=== PATIENT | female | born 1995 | race American Indian/Alaskan Native ===

== ENCOUNTER 2019-05-20 10:00 | Inpatient (IN) | payer MEDICARE ==
--- NOTE | 2019-05-20 10:39 | Emergency Department Report ---
ED Female HPI - General Chief complaint: Abdominal Pain Stated complaint: PELVIC PAIN Time Seen by Provider: 05/20/19 10:24 Source: patient Mode of arrival: Ambulatory Limitations: No Limitations - History of Present Illness Initial comments: This is a 24-year-old female presents to ED complaining of lower suprapubic pain and increased pain or urination for the past 3 days. Patient states pain is constant but worsened with urination. She states she's experienced some nausea associated vomiting. Patient describes pain as localized to pelvic region and constant. She rates pain a 10 out of 10 in nature. She states last menstrual period as 05/15/2019. Patient states that she has not been sexually active for some time now so she has not had recent intercourse. She admits to having a fever last night. She denies vaginal bleeding, vaginal discharge, diarrhea, MD Complaint: dysuria, pelvic pain Location: suprapubic Radiation: R flank Severity: moderate Severity scale (0 -10): 5 Consistency: constant Worsens with: urination Are you Now?: No Last Menstrual Period: 05/15/19 EDC: 02/19/20 Associated Symptoms: nausea/vomiting. denies: vaginal discharge, vaginal bleeding, hematuria - Related Data Previous Rx's Medication Instructions Recorded Last Taken Type Nitrofurantoin [place]/M-Cryst 100 mg PO Q12HR #10 capsule 05/20/19 Unknown Rx [Macrobid CAP] Phenazopyridine [Pyridium] 100 mg PO TID #8 tab 05/20/19 Unknown Rx Allergies Allergy/AdvReac Type Severity Reaction Status Date / Time cefepime Allergy Hives Verified 05/20/19 10:21 shellfish derived Allergy Swelling Verified 05/20/19 10:21 vancomycin Allergy Hives Verified 05/20/19 10:21 ED Review of Systems ROS: Stated complaint: PELVIC PAIN Other details as noted in HPI Comment: All other systems reviewed and negative ED Past Medical Hx - Past Medical History Previous Medical History?: Yes Hx Pulmonary Embolism: Yes Hx Sickle Cell Disease: Yes - Surgical History Past Surgical History?: Yes Hx Cholecystectomy: Yes - Social History Smoking Status: Never Smoker Substance Use Type: None - Medications Home Medications: Home Medications Medication Instructions Recorded Confirmed Last Taken Type Nitrofurantoin [place]/M-Cryst 100 mg PO Q12HR #10 capsule 05/20/19 Unknown Rx [Macrobid CAP] Phenazopyridine [Pyridium] 100 mg PO TID #8 tab 05/20/19 Unknown Rx ED Physical Exam - General Limitations: No Limitations General appearance: alert, in no apparent distress - Head Head exam: Present: atraumatic, normocephalic - Eye Eye exam: Present: normal appearance - ENT ENT exam: Present: mucous membranes moist - Neck Neck exam: Present: normal inspection - Respiratory Respiratory exam: Present: normal lung sounds bilaterally. Absent: respiratory distress - Cardiovascular Cardiovascular Exam: Present: regular rate, normal rhythm. Absent: systolic murmur, diastolic murmur, rubs, gallop - GI/Abdominal GI/Abdominal exam: Present: soft, tenderness (pelvic region), normal bowel sounds. Absent: distended, guarding, mass - External exam: Present: normal external exam. Absent: erythema, swelling Speculum exam: Present: vaginal discharge (greenish), cervical discharge (brown greenish pus like discharge) Bi-manual exam: Present: cervical motion tendernes, adnexal tenderness, uterine tenderness - Extremities Exam Extremities exam: Present: normal inspection - Back Exam Back exam: Present: normal inspection - Neurological Exam Neurological exam: Present: alert, oriented X3 - Psychiatric Psychiatric exam: Present: normal affect, normal mood - Skin Skin exam: Present: warm, dry, intact, normal color. Absent: rash ED Course Vital Signs 05/20/19 05/20/19 05/20/19 10:18 10:37 15:17 Temperature 98.8 F 98.6 F Pulse Rate 113 H 108 H Respiratory 18 16 22 Rate Blood Pressure 103/65 Blood Pressure 96/48 [Right] O2 Sat by Pulse 100 97 Oximetry 05/20/19 16:35 Temperature Pulse Rate 91 H Respiratory 20 Rate Blood Pressure Blood Pressure 95/51 [Right] O2 Sat by Pulse 99 Oximetry - Reevaluation(s) Reevaluation #1: Patient was in a lot of pain, after pelvic examination, 1 L normal saline, Toradol 15 IV being administered Patient states she is still uncomfortable, 2 mg of morphine ordered X line sepsis protocol started initiated 1430PM 05/20/19 15:04 Reevaluation #2: Patient is resting comfortably in the ED bed. Pain is controlled at the moment after receiving morphine 2 mg Vital signs stable 05/20/19 16:33 05/20/19 16:33 - Consultations Consultation #1: Discussed case with Dr. Luis JORDAN WORKER who has a septated to admit the patient to mother baby unit 05/20/19 16:32 ED Medical Decision Making - Lab Data Result diagrams: 05/20/19 13:28 05/20/19 14:43 Laboratory Last Values WBC 22.1 K/mm3 (4.5-11.0) H 05/20/19 13:28 RBC 2.56 M/mm3 (3.65-5.03) L 05/20/19 13:28 Hgb 8.3 gm/dl (10.1-14.3) L 05/20/19 13:28 Hct 24.0 % (30.3-42.9) L 05/20/19 13:28 MCV 94 fl (79-97) 05/20/19 13:28 MCH 33 pg (28-32) H 05/20/19 13:28 MCHC 35 % (30-34) H 05/20/19 13:28 RDW 23.0 % (13.2-15.2) H 05/20/19 13:28 Plt Count 454 K/mm3 (140-440) H 05/20/19 13:28 Add Manual Diff Complete 05/20/19 13:28 Total Counted 100 05/20/19 13:28 Seg Neuts % (Manual) 92.0 % (40.0-70.0) H 05/20/19 13:28 0 % 05/20/19 13:28 6.0 % (13.4-35.0) L 05/20/19 13:28 Reactive Lymphs % (Man) 0 % 05/20/19 13:28 2.0 % (0.0-7.3) 05/20/19 13:28 0 % (0.0-4.3) 05/20/19 13:28 0 % (0.0-1.8) 05/20/19 13:28 0 % 05/20/19 13:28 0 % 05/20/19 13:28 0 % 05/20/19 13:28 0 % 05/20/19 13:28 Nucleated RBC % Not Reportable 05/20/19 13:28 Seg Neutrophils # Man 20.3 K/mm3 (1.8-7.7) H 05/20/19 13:28 Band Neutrophils # 0.0 K/mm3 05/20/19 13:28 1.3 K/mm3 (1.2-5.4) 05/20/19 13:28 Abs React Lymphs (Man) 0.0 K/mm3 05/20/19 13:28 0.4 K/mm3 (0.0-0.8) 05/20/19 13:28 0.0 K/mm3 (0.0-0.4) 05/20/19 13:28 0.0 K/mm3 (0.0-0.1) 05/20/19 13:28 0.0 K/mm3 05/20/19 13:28 0.0 K/mm3 05/20/19 13:28 0.0 K/mm3 05/20/19 13:28 Blast Cells # 0.0 K/mm3 05/20/19 13:28 WBC Morphology Not Reportable 05/20/19 13:28 Hypersegmented Neuts Not Reportable 05/20/19 13:28 Hyposegmented Neuts Not Reportable 05/20/19 13:28 Hypogranular Neuts Not Reportable 05/20/19 13:28 Not Reportable 05/20/19 13:28 Not Reportable 05/20/19 13:28 Not Reportable 05/20/19 13:28 Not Reportable 05/20/19 13:28 Not Reportable 05/20/19 13:28 Not Reportable 05/20/19 13:28 Consistent w auto 05/20/19 13:28 Not Reportable 05/20/19 13:28 Plt Clumps, EDTA Not Reportable 05/20/19 13:28 Few 05/20/19 13:28 Not Reportable 05/20/19 13:28 Not Reportable 05/20/19 13:28 Plt Morphology Comment Not Reportable 05/20/19 13:28 RBC Morphology Not Reportable 05/20/19 13:28 Dimorphic RBCs Not Reportable 05/20/19 13:28 Not Reportable 05/20/19 13:28 Not Reportable 05/20/19 13:28 Not Reportable 05/20/19 13:28 Not Reportable 05/20/19 13:28 Not Reportable 05/20/19 13:28 Not Reportable 05/20/19 13:28 Not Reportable 05/20/19 13:28 Not Reportable 05/20/19 13:28 2+ 05/20/19 13:28 2+ 05/20/19 13:28 Not Reportable 05/20/19 13:28 Not Reportable 05/20/19 13:28 Not Reportable 05/20/19 13:28 Not Reportable 05/20/19 13:28 Not Reportable 05/20/19 13:28 Not Reportable 05/20/19 13:28 Not Reportable 05/20/19 13:28 Not Reportable 05/20/19 13:28 Not Reportable 05/20/19 13:28 Acanthocytes (Spur) Not Reportable 05/20/19 13:28 Rouleaux Not Reportable 05/20/19 13:28 Not Reportable 05/20/19 13:28 Not Reportable 05/20/19 13:28 Not Reportable 05/20/19 13:28 Not Reportable 05/20/19 13:28 Hem Pathologist Commnt No 05/20/19 13:28 Sodium 140 mmol/L (137-145) 05/20/19 14:43 Sodium 141 mmol/L (137-145) 05/20/19 14:43 Potassium 3.1 mmol/L (3.6-5.0) L 05/20/19 14:43 Potassium 3.1 mmol/L (3.6-5.0) L 05/20/19 14:43 Chloride 104.4 mmol/L (98-107) 05/20/19 14:43 Chloride 104.9 mmol/L (98-107) 05/20/19 14:43 Carbon Dioxide 22 mmol/L (22-30) 05/20/19 14:43 Carbon Dioxide 23 mmol/L (22-30) 05/20/19 14:43 16 mmol/L 05/20/19 14:43 17 mmol/L 05/20/19 14:43 BUN 5 mg/dL (7-17) L 05/20/19 14:43 BUN 5 mg/dL (7-17) L 05/20/19 14:43 0.3 mg/dL (0.7-1.2) L 05/20/19 14:43 0.3 mg/dL (0.7-1.2) L 05/20/19 14:43 Estimated GFR > 60 ml/min 05/20/19 14:43 Estimated GFR > 60 ml/min 05/20/19 14:43 17 % 05/20/19 14:43 17 % 05/20/19 14:43 Glucose 90 mg/dL (65-100) 05/20/19 14:43 Glucose 90 mg/dL (65-100) 05/20/19 14:43 Lactic Acid 0.70 mmol/L (0.7-2.0) 05/20/19 14:43 Calcium 9.1 mg/dL (8.4-10.2) 05/20/19 14:43 Calcium 9.1 mg/dL (8.4-10.2) 05/20/19 14:43 2.90 mg/dL (0.1-1.2) H 05/20/19 14:43 AST 15 units/L (5-40) 05/20/19 14:43 ALT 7 units/L (7-56) 05/20/19 14:43 54 units/L (35-129) 05/20/19 14:43 8.0 g/dL (6.3-8.2) 05/20/19 14:43 4.4 g/dL (3.9-5) 05/20/19 14:43 1.2 % 05/20/19 14:43 Yellow (Yellow) 05/20/19 10:38 Clear (Clear) 05/20/19 10:38 5.0 (5.0-7.0) 05/20/19 10:38 Ur Specific Cool 1.012 (1.003-1.030) 05/20/19 10:38 <15 mg/dl mg/dL (Negative) 05/20/19 10:38 Neg mg/dL (Negative) 05/20/19 10:38 Neg mg/dL (Negative) 05/20/19 10:38 Neg (Negative) 05/20/19 10:38 Neg (Negative) 05/20/19 10:38 Neg (Negative) 05/20/19 10:38 < 2.0 mg/dL (<2.0) 05/20/19 10:38 Ur Leukocyte Esterase Tr (Negative) 05/20/19 10:38 1.0 /HPF (0.0-6.0) 05/20/19 10:38 < 1.0 /HPF (0.0-6.0) 05/20/19 10:38 U Epithel Cells (Auto) < 1.0 /HPF (0-13.0) 05/20/19 10:38 Few /HPF 05/20/19 10:38 Urine HCG, Qual Negative (Negative) 05/20/19 10:38 - Radiology Data Radiology results: report reviewed, image reviewed TECHNIQUE: Axial CT images were obtained through the abdomen and pelvis without IV contrast. All CT scans at this location are performed using CT dose reduction for ALARA by means of automated exposure control. COMPARISON: None available. FINDINGS: LOWER CHEST: No significant abnormality. LIVER: No significant abnormality. GALLBLADDER: Surgically absent. BILE DUCTS: No significant abnormality. PANCREAS: No significant abnormality. SPLEEN: Spleen is absent. ADRENALS: No significant abnormality. RIGHT KIDNEY and URETER: No significant abnormality. LEFT KIDNEY and URETER: No significant abnormality. STOMACH and SMALL BOWEL: No significant abnormality. COLON: No significant abnormality. APPENDIX: No significant abnormality. PERITONEUM: No free fluid. No free air. No fluid collection. LYMPH NODES: Shotty lymph nodes in the small bowel mesentery none of which appear pathologically enlarged. AORTA and ARTERIES: No significant abnormality. IVC and VEINS: No significant abnormality. URINARY BLADDER: No significant abnormality. REPRODUCTIVE ORGANS: Intrauterine device is present. No acute abnormality. ADDITIONAL FINDINGS: None. SKELETAL SYSTEM: No significant abnormality. IMPRESSION: 1. No inflammatory process or bowel obstruction. 2. No urinary tract stones or hydronephrosis. Signer Name: Kamala Amato MD Signed: 05/20/2019 4:21 PM Workstation Name: [id number] Transcribed By: DT Dictated By: Mark Amato MD Electronically Authenticated By: Mark Amato MD Signed Date/Time: 05/20/19 1621 - Medical Decision Making 24-year-old female presents with low pelvic pain/PID CBC, BMP, lactate acid ,Urinalysis and urine test ordered. CBC shows leukocytosis Due to patient having symptoms she'll be treated with Macrobid 5 days patient was given Patient has received 1 L fluids, morphine, Toradol for pain CT scan of the abdomen and pelvis pending Discussed findings with the patient. Case discussed with Dr. Dumont JORDAN WORKER was assisted to admit patient to the mother-baby unit. Admission orders placed patient will be titrated to mother-baby Critical care attestation.: If time is entered above; I have spent that time in minutes in the direct care of this critically ill patient, excluding procedure time. ED Disposition Clinical Impression: PID (acute pelvic inflammatory disease) Disposition: OP ADMIT IP TO THIS HOSP Is pt being admited?: Yes Does the pt Need Aspirin: No Condition: Stable
[2019-05-20 11:03] LABS: Bilirubin,Urine NEG (Negative); Blood,Urine NEG (Negative); Color,Urine Yellow (Yellow); Mucus,Urine FEW /HPF; Protein,Urine <15 mg/dL mg/dL (Negative); RBC,Urine < 1.0 /HPF (0.0-6.0); Urobilinogen,Urine < 2.0 mg/dL (<2.0)
[2019-05-20 11:10] LABS: HCG Qualitative,Urine Negative (Negative)
[2019-05-20] MEDS ORDERED: NACL 0.9% 1000 ML 1,000 ML IV ONE (13:12)
[2019-05-20] MEDS ORDERED: TORADOL IV ONE (13:12)
[2019-05-20 14:01] LABS: Blood Urea Nitrogen TNR mg/dL (7-17)
[2019-05-20 14:02] LABS: BUN/Creatinine Ratio TNR; Calcium TNR mg/dL (8.4-10.2); Hemolysis Index TNR
[2019-05-20 14:19] LABS: Hemoglobin 8.3 gm/dl (10.1-14.3); Mean Corpuscular HGB Conc 35 % (30-34); Mean Corpuscular Volume 94 fl (79-97); Platelet Count 454 K/mm3 (140-440); Red Blood Count 2.56 M/mm3 (3.65-5.03)
[2019-05-20] MEDS ORDERED: NACL 0.9% 1000 ML IV ONE (14:38)
[2019-05-20] MEDS ORDERED: CLEOCIN 600 MG/50 mL 600 MG/50 ML BAG IV ONE (14:39)
[2019-05-20] MEDS ORDERED: MORPHINE IV ONE ×2 (15:08→16:25)
[2019-05-20 15:18] LABS: Basophils % (Manual) 0 % (0.0-1.8); Eosinophils % (Manual) 0 % (0.0-4.3); Total Cells Counted 100
[2019-05-20 15:19] LABS: BUN/Creatinine Ratio 17; Blood Urea Nitrogen 5 mg/dL (7-17); Calcium 9.1 mg/dL (8.4-10.2); Hemolysis Index 4
[2019-05-20 15:20] LABS: Large Platelets Few; Platelet Estimate Consistent w Auto; Sickle Cells 2+; Target Cells 2+
[2019-05-20 15:21] LABS: Alanine Aminotransferase 7 units/L (7-56); Albumin 4.4 g/dL (3.9-5); BUN/Creatinine Ratio 17; Blood Urea Nitrogen 5 mg/dL (7-17); Calcium 9.1 mg/dL (8.4-10.2); Hemolysis Index 1
--- NOTE | 2019-05-20 16:25 | Cat Scan Report ---
CT ABDOMEN AND PELVIS WITHOUT CONTRAST INDICATION / CLINICAL INFORMATION: low abd pain. TECHNIQUE: Axial CT images were obtained through the abdomen and pelvis without IV contrast. All CT scans at [facility] location are performed using CT dose reduction for ALARA by means of automated exposure control. COMPARISON: None available. FINDINGS: LOWER CHEST: No significant abnormality. LIVER: No significant abnormality. GALLBLADDER: Surgically absent. BILE DUCTS: No significant abnormality. PANCREAS: No significant abnormality. SPLEEN: Spleen is absent. ADRENALS: No significant abnormality. RIGHT KIDNEY and URETER: No significant abnormality. LEFT KIDNEY and URETER: No significant abnormality. STOMACH and SMALL BOWEL: No significant abnormality. COLON: No significant abnormality. APPENDIX: No significant abnormality. PERITONEUM: No free fluid. No free air. No fluid collection. LYMPH NODES: Shotty lymph nodes in the small bowel mesentery none of which appear pathologically enla rged. AORTA and ARTERIES: No significant abnormality. IVC and VEINS: No significant abnormality. URINARY BLADDER: No significant abnormality. REPRODUCTIVE ORGANS: Intrauterine device is present. No acute abnormality. ADDITIONAL FINDINGS: None. SKELETAL SYSTEM: No significant abnormality. IMPRESSION: 1. No inflammatory process or bowel obstruction. 2. No urinary tract stones or hydronephrosis. Signer Name: Kamala Amato MD Signed: 05/20/2019 4:21 PM Workstation Name: [id number]
--- NOTE | 2019-05-20 16:26 | Event Note ---
Date of service: 05/20/19 Face to Face: For this encounter I have reviewed the PA/TELESALES SPECIALIST documentation, treatment plan, medical decision making, and I had face to face time with this patient. Patient is a 24-year-old Female who is presenting with lower abdominal pain. Patient had a pelvic exam were performed which showed she has vaginal discharge as well as cervical motion tenderness. White count returned at 22,000. CT was ordered at that time the patient was placed on sepsis protocol. Patient has several allergies but was placed on IV doxycycline as well as IV clindamycin. The patient was started on IV fluids. The patient will be admitted to the EQUIPMENT ENGINEER service. There is a delay in the interpretation of her CT secondary to technical air. The patient's CT is showing in [employer] but not on the patella view are. Radiology is aware of this issue wasn't attempting to fix it.
[2019-05-20] MEDS ORDERED: ZOFRAN IV PRN (21:39)
[2019-05-20] MEDS: CLEOCIN 900 MG/50 mL 900 MG/50 ML BAG IV SCH (22:09)
[2019-05-20] MEDS: TORADOL IV PRN (22:09)
[2019-05-20] MEDS: D5LR 1,000 ML IV SCH (22:10)
[2019-05-20] MEDS: DOXYCYCLINE HYCLATE 100 MG in NACL 0.9% 250ML 250 ML IV SCH (23:12)
[2019-05-21] MEDS: PERCOCET 5/325 PO PRN (04:45)
[2019-05-21 06:08] LABS: Hematocrit 21.7 % (30.3-42.9); Hemoglobin 7.5 gm/dl (10.1-14.3); Mean Corpuscular HGB Conc 35 % (30-34); Mean Corpuscular Volume 94 fl (79-97); Platelet Count 388 K/mm3 (140-440); Red Blood Count 2.31 M/mm3 (3.65-5.03)
[2019-05-21 06:13] LABS: Red Cell Distribution Width 22.8 % (13.2-15.2)
[2019-05-21] MEDS: CLEOCIN 900 MG/50 mL 900 MG/50 ML BAG IV SCH ×2 (06:29→17:22)
--- NOTE | 2019-05-21 08:04 | History and Physical Report ---
History of Present Illness Date of examination: 05/21/19 Date of admission: 05/20/19 16:24 Chief complaint: pelvic pain History of present illness: This is a 24-year-old female presents to ED complaining of lower suprapubic pain and increased pain or urination for the past 3 days. Patient states pain is constant but worsened with urination. She states she's experienced some nausea associated vomiting. Patient describes pain as localized to pelvic region and c onstant. She rates pain a 10 out of 10 in nature. She states last menstrual period as 05/15/2019. Patient states that she has not been sexually active for some time now so she has not had recent intercourse. She admits to having a fever last night. She denies vaginal bleeding, vaginal discharge, diarrhea, Past History Past Medical History: no pertinent history Past Surgical History: no surgical history Family/Genetic History: none Social history: no significant social history, single. denies: smoking, alcohol abuse, prescription drug abuse Medications and Allergies Allergies Allergy/AdvReac Type Severity Reaction Status Date / Time cefepime Allergy Hives Verified 05/20/19 10:21 shellfish derived Allergy Swelling Verified 05/20/19 10:21 vancomycin Allergy Hives Verified 05/20/19 10:21 Home Medications Medication Instructions Recorded Confirmed Last Taken Type Nitrofurantoin [place]/M-Cryst 100 mg PO Q12HR #10 capsule 05/20/19 Unknown Rx [Macrobid CAP] Phenazopyridine [Pyridium] 100 mg PO TID #8 tab 05/20/19 Unknown Rx Active Meds: Active Medications Doxycycline Hyclate 100 mg/ (Sodium Chloride) 250 mls @ 250 mls/hr IV Q12HR MANAS; Protocol Last Admin: 05/20/19 23:12 Dose: 250 mls/hr Documented by: Clindamycin HCl (Cleocin 900 Mg/50 Ml) 900 mg in 50 mls @ 100 mls/hr IV Q8HR MANAS Last Admin: 05/21/19 06:29 Dose: 100 mls/hr Documented by: Dextrose/Lactated Ringer's (D5lr) 1,000 mls @ 125 mls/hr IV DIRECT MANAS Last Admin: 05/20/19 22:10 Dose: 125 mls/hr Documented by: Ketorolac Tromethamine (Toradol) 30 mg IV Q8H PRN PRN Reason: Pain, Moderate (4-6) Stop: 05/25/19 21:38 Last Admin: 05/20/19 22:09 Dose: 30 mg Documented by: Ondansetron HCl (Zofran) 4 mg IV Q4H PRN PRN Reason: Nausea And Vomiting Oxycodone/Acetaminophen (Percocet 5/325) 2 tab PO Q4H PRN PRN Reason: Pain, Moderate (4-6) Last Admin: 05/21/19 04:45 Dose: 2 tab Documented by: Review of Systems All systems: negative Gastrointestinal: abdominal pain - Vital Signs Vital signs: Vital Signs Temp Pulse Resp BP Pulse Ox 98.8 F 113 H 18 103/65 100 05/20/19 10:18 05/20/19 10:18 05/20/19 10:18 05/20/19 10:18 05/20/19 10:18 Temp Pulse Resp BP Pulse Ox 98.1 F 86 18 100/58 97 05/21/19 05:05 05/21/19 05:05 05/21/19 05:05 05/21/19 05:05 05/21/19 05:05 - Physical Exam Breasts: Positive: normal Cardiovascular: Regular rate, Normal S1 Lungs: Positive: Clear to auscultation, Normal air movement Abdomen: Positive: normal appearance, soft, tenderness, normal bowel sounds. Negative: distention, guarding Genitourinary (Female): Positive: normal external genitalia, normal perenium Vagina: Positive: normal moisture Uterus: Positive: normal size, normal contour Anus/Rectum: Positive: normal perianal skin Extremities: Positive: normal Deep Tendon Reflex Grade: Normal +2 Results Result Diagrams: 05/22/19 07:30 05/20/19 14:43 Abnormal lab results 05/20/19 05/20/19 05/20/19 Range/Units 13:28 14:43 14:43 WBC 22.1 H (4.5-11.0) K/mm3 RBC 2.56 L (3.65-5.03) M/mm3 Hgb 8.3 L (10.1-14.3) gm/dl Hct 24.0 L (30.3-42.9) % MCH 33 H (28-32) pg MCHC 35 H (30-34) % RDW 23.0 H (13.2-15.2) % Plt Count 454 H (140-440) K/mm3 Seg Neuts % (Manual) 92.0 H (40.0-70.0) % Lymphocytes % (Manual) 6.0 L (13.4-35.0) % Seg Neutrophils # Man 20.3 H (1.8-7.7) K/mm3 Potassium 3.1 L 3.1 L (3.6-5.0) mmol/L BUN 5 L 5 L (7-17) mg/dL Creatinine 0.3 L 0.3 L (0.7-1.2) mg/dL Total Bilirubin 2.90 H (0.1-1.2) mg/dL 05/21/19 Range/Units 05:57 WBC (4.5-11.0) K/mm3 RBC 2.31 L (3.65-5.03) M/mm3 Hgb 7.5 L (10.1-14.3) gm/dl Hct 21.7 L (30.3-42.9) % MCH 33 H (28-32) pg MCHC 35 H (30-34) % RDW 22.8 H (13.2-15.2) % Plt Count (140-440) K/mm3 Seg Neuts % (Manual) (40.0-70.0) % Lymphocytes % (Manual) (13.4-35.0) % Seg Neutrophils # Man (1.8-7.7) K/mm3 Potassium (3.6-5.0) mmol/L BUN (7-17) mg/dL Creatinine (0.7-1.2) mg/dL Total Bilirubin (0.1-1.2) mg/dL All other labs normal. Ultrasound: report reviewed Assessment and Plan A/P PID/UTI on clinda and doxy ID consult CBC tomorrow Pain controlled-morphine and dilaudid
[2019-05-21] MEDS: KCL 10MEQ/100ML 10 MEQ/100 ML BAG IV SCH ×3 (09:30→18:40)
[2019-05-21] MEDS: D5LR 1,000 ML IV SCH ×2 (09:53→21:24)
[2019-05-21] MEDS: DILAUDID IV PRN ×5 (09:54→23:29)
[2019-05-21 10:24] LABS: Basophils % (Manual) 0 % (0.0-1.8); Eosinophils % (Manual) 0 % (0.0-4.3); Sickle Cells 2+; Target Cells 1+; Total Cells Counted 100
[2019-05-21 10:25] LABS: Hypochromasia 1+
[2019-05-21 10:26] LABS: Schistocytes Few
[2019-05-21 10:27] LABS: Anisocytosis 1+
[2019-05-21 10:28] LABS: Macrocytosis 1+; Platelet Estimate Consistent w Auto
--- NOTE | 2019-05-21 13:39 | Ultrasound Report ---
ULTRASOUND PELVIC COMPLETE HISTORY: Pelvic pain, evaluate for PID. TECHNIQUE: Transabdominal ultrasound images with color Doppler imaging. COMPARISON: CT abdomen pelvis without contrast performed the same day. FINDINGS: The uterus is anteverted. The uterus measures 7.4 x 3.7 x 5.5 cm. No evidence for uterine mass. The c ervix is partially obscured but unremarkable. An intrauterine device is identified within the endometrial canal. The endometrium measures 5 mm. The right ovary measures 2.5 x 1.6 x 2.5 cm. The left ovary measures 3.9 x 3.0 x 2.9 cm. Normal folli cles are identified bilaterally. No pelvic fluid collection. IMPRESSION: Unremarkable pelvic ultrasound. No findings to suggest PID on ultrasound or CT Signer Name: Igor Richter Jr, MD Signed: 05/21/2019 1:35 PM Workstation Name: [id number]
[2019-05-21] MEDS: K-DUR PO SCH (19:46)
[2019-05-21] MEDS: TORADOL IV PRN (21:16)
[2019-05-21] MEDS: DOXYCYCLINE HYCLATE 100 MG in NACL 0.9% 250ML 250 ML IV SCH (21:21)
[2019-05-22] MEDS: DILAUDID IV PRN ×2 (02:02→05:33)
[2019-05-22] MEDS: CLEOCIN 900 MG/50 mL 900 MG/50 ML BAG IV SCH ×3 (02:10→18:14)
[2019-05-22 07:44] LABS: Basophils # (Auto) 0.1 K/mm3 (0.0-0.1); Basophils % (Auto) 1.7 % (0.0-1.8); Eosinophils # (Auto) 0.9 K/mm3 (0.0-0.4); Eosinophils % (Auto) 10.1 % (0.0-4.3); Hematocrit 22.9 % (30.3-42.9); Hemoglobin 7.8 gm/dl (10.1-14.3); Lymphocytes # (Auto) 3.1 K/mm3 (1.2-5.4); Lymphocytes % (Auto) 36.1 % (13.4-35.0); Mean Corpuscular HGB Conc 34 % (30-34); Mean Corpuscular Volume 95 fl (79-97); Monocytes # (Auto) 1.3 K/mm3 (0.0-0.8); Monocytes % (Auto) 15.1 % (0.0-7.3); Platelet Count 379 K/mm3 (140-440); Red Blood Count 2.41 M/mm3 (3.65-5.03)
[2019-05-22 08:07] LABS: Red Cell Distribution Width 22.1 % (13.2-15.2)
--- NOTE | 2019-05-22 08:13 | Progress Note ---
Assessment and Plan A/P PID/UTI HD 2 on clinda and doxy afebrile low K+- receck this am ID consult CBC and CMP this am Pain controlled-morphine and dilaudid ( hx of sickle cell disease) Subjective - Subjective Date of service: 05/22/19 Principal diagnosis: PID/UTI Interval history: This is a 24-year-old female presents to ED complaining of lower suprapubic pain and increased pain or urination for the past 3 days. Patient states pain is constant but worsened with urination. She states she's experienced some nausea associated vomiting. Patient describes pain as localized to pelvic region and constant. She rates pain a 10 out of 10 in nature. She states last menstrual period as 05/15/2019. Patient states that she has not been sexually active for some time now so she has not had recent intercourse. She admits to having a fever last night. She denies vaginal bleeding, vaginal discharge, diarrhea, Patient reports: appetite normal, voiding normally, pain well controlled, flatus, ambulating normally Objective - Vital Signs Latest vital signs: Vital Signs Temp Pulse Resp BP BP Pulse Ox 05/22/19 05:00 98.2 F 83 18 98/60 99 05/21/19 20:02 97.9 F 100 H 16 106/56 98 05/21/19 17:40 20 05/21/19 17:10 98.9 F 85 18 102/53 05/21/19 14:31 18 05/21/19 11:54 97.9 F 88 18 97/53 05/21/19 09:54 18 Intake and Output 05/21/19 05/22/19 05/22/19 23:59 07:59 15:59 Intake Total 2500 370 Balance 2500 370 Intake: IV 1300 250 CLEOCIN 900 MG/50 mL 900 50 mg In 50 ml @ 100 mls/hr IV Q8HR MNAAS Rx#:[id number] D5lr 1,000 ml @ 125 mls/ 1000 hr IV DIRECT MANAS Rx#: [id number] Doxycycline Hyclate 100 250 250 mg In NaCl 0.9% 250Ml 250 ml @ 250 mls/hr IV Q12HR MANAS Rx#:[id number] Oral 720 Intake, Free Water 480 120 Other: Total, Intake Amount 240 Voiding Method Toilet # Voids Void 1 3 - Exam Breasts: Present: normal Cardiovascular: Present: Regular rate, Normal S1 Lungs: Present: Clear to auscultation, Normal air movement Abdomen: Present: normal appearance, soft, normal bowel sounds. Absent: distention, tenderness, guarding Vulva: both: normal Uterus: Present: normal, firm, fundal height below umbilicus. Absent: bogginess, tenderness Extremities: Present: normal Deep Tendon Reflex Grade: Normal +2 - Labs Labs: Abnormal lab results 05/21/19 05/22/19 Range/Units 05:57 07:30 RBC 2.41 L (3.65-5.03) M/mm3 Hgb 7.8 L (10.1-14.3) gm/dl Hct 22.9 L (30.3-42.9) % MCH 33 H (28-32) pg RDW 22.1 H (13.2-15.2) % Lymph % (Auto) 36.1 H (13.4-35.0) % Leslie % (Auto) 15.1 H (0.0-7.3) % Eos % (Auto) 10.1 H (0.0-4.3) % Leslie # 1.3 H (0.0-0.8) K/mm3 Eos # 0.9 H (0.0-0.4) K/mm3 Seg Neutrophils % 37.0 L (40.0-70.0) % Seg Neuts % (Manual) 79.0 H (40.0-70.0) % Seg Neutrophils # Man 8.6 H (1.8-7.7) K/mm3
[2019-05-22] MEDS: TORADOL IV PRN (08:16)
[2019-05-22] MEDS: PERCOCET 5/325 PO PRN (08:17)
[2019-05-22 09:03] LABS: Alanine Aminotransferase 9 units/L (7-56); Albumin 3.7 g/dL (3.9-5); BUN/Creatinine Ratio 10; Blood Urea Nitrogen 3 mg/dL (7-17); Hemolysis Index 14
[2019-05-22] MEDS: DOXYCYCLINE HYCLATE 100 MG in NACL 0.9% 250ML 250 ML IV SCH ×2 (10:17→23:44)
[2019-05-22] MEDS: K-DUR PO SCH (10:23)
[2019-05-22] MEDS: MORPHINE IV PRN ×3 (11:04→16:32)
--- NOTE | 2019-05-22 12:34 | Event Note ---
Date: 05/22/19 Attempted to remove iud strings not visible. will attempt in office after discharge
--- NOTE | 2019-05-22 16:42 | Consultation ---
History of Present Illness - Reason for Consult Consult date: 05/22/19 PID Requesting physician: YAKOV BRANCH - History of Present Illness The patient is a 24-year-old female with no significant past medical history who presented to the emergency room on 05/20/2019 with complaints of lower abdominal pain. This was associated with nausea, vomiting and some loose watery stools. This had been going on for about 7 days prior to admission but got worse 3 days before. She was noted to have a significant leukocytosis of 22K and was hospitalized. She was started empirically on clindamycin and doxycycline. Infectious Diseases was consulted for antibiotic recommendations. She had a fever prior to admission, but has remained afebrile here. She denies any vaginal discharge. Ultrasound revealed a retained IUD but no evidence of pelvic inflammatory disease. CT abdomen and pelvis was also unremarkable for acute infectious process. She reports cefepime and vancomycin gave her hives when she received these antibiotics in the past for a pneumonia. She has tolerated amoxicillin and Augmentin without issues. She tested negative for HIV less than a year ago. She has a stable male partner for the last 1 year. Review of Systems: General: no fevers,chills or rigors at present HEENT: no new visual disturbance Respiratory: No cough, sputum, hemoptysis or shortness of breath Cardiovascular: No chest pain, syncope Gastrointestinal: Had nausea, vomiting and diarrhea, resolved. Now reports constipation Genitourinary: No dysuria or hematuria Musculoskeletal: No new or worsening neck pain or back pain Neurologic: No headaches, seizures Hematologic: No easy bruising or bleeding Endocrine: No night sweats or acute weight loss Skin: negative for rash, jaundice Psychiatric: No suicidal or homicidal ideation Past History Social history: no significant social history, single. denies: smoking, alcohol abuse, prescription drug abuse Medications and Allergies Allergies Allergy/AdvReac Type Severity Reaction Status Date / Time cefepime Allergy Hives Verified 05/20/19 10:21 shellfish derived Allergy Swelling Verified 05/20/19 10:21 vancomycin Allergy Hives Verified 05/20/19 10:21 Home Medications Medication Instructions Recorded Confirmed Last Taken Type Nitrofurantoin [place]/M-Cryst 100 mg PO Q12HR #10 capsule 05/20/19 Unknown Rx [Macrobid CAP] Phenazopyridine [Pyridium] 100 mg PO TID #8 tab 05/20/19 Unknown Rx Active Meds: Active Medications Doxycycline Hyclate 100 mg/ (Sodium Chloride) 250 mls @ 250 mls/hr IV Q12HR [facility]; Protocol Last Admin: 05/22/19 10:17 Dose: 250 mls/hr Documented by: Clindamycin HCl (Cleocin 900 Mg/50 Ml) 900 mg in 50 mls @ 100 mls/hr IV Q8HR [facility] Last Admin: 05/22/19 10:39 Dose: 100 mls/hr Documented by: Dextrose/Lactated Ringer's (D5lr) 1,000 mls @ 125 mls/hr IV DIRECT MANAS Last Admin: 05/21/19 21:24 Dose: 125 mls/hr Documented by: Ketorolac Tromethamine (Toradol) 30 mg IV Q8H PRN PRN Reason: Pain, Moderate (4-6) Stop: 05/25/19 21:38 Last Admin: 05/22/19 08:16 Dose: 30 mg Documented by: Morphine Sulfate (Morphine) 1 mg IV Q2H PRN PRN Reason: Pain, Moderate (4-6) Last Admin: 05/22/19 16:32 Dose: 1 mg Documented by: Ondansetron HCl (Zofran) 4 mg IV Q4H PRN PRN Reason: Nausea And Vomiting Oxycodone/Acetaminophen (Percocet 5/325) 2 tab PO Q4H PRN PRN Reason: Pain, Moderate (4-6) Last Admin: 05/21/19 04:45 Dose: 2 tab Documented by: Potassium Chloride (K-Dur) 40 meq PO QDAY [facility] Last Admin: 05/22/19 10:23 Dose: 40 meq Documented by: Physical Examination - Physical Exam Narrative exam: Physical Exam: Constitutional: Alert, cooperative. No acute distress Head, Ears, Nose: Normocephalic, atraumatic. External ears, nose normal Eyes: Conjunctivae/corneas clear. No icterus. No ptosis. Neck: Supple, no meningeal signs Oral: dentition fair, no thrush Cardiovascular: S1, S2 normal. Respiratory: Good air entry, clear to auscultation bilaterally GI: Soft, lower abdominal tenderness; bowel sounds normal. No peritoneal signs Musculoskeletal: No pedal edema, no cyanosis. Skin: No rash or abscess Hem/Lymphatic: No palpable cervical or supraclavicular nodes. No lymphangitis Psych: Mood ok. Affect normal Neurological: Awake, alert, oriented. No gross abnormality - Constitutional Vitals: Vital Signs Temp Pulse Resp BP Pulse Ox 97.8 F 95 H 20 112/67 98 05/22/19 12:03 05/22/19 12:03 05/22/19 12:03 05/22/19 12:03 05/22/19 12:03 Temperature -Last 24 Hours Temperature 97.8 F Temperature 98.1 F Temperature 98.2 F Temperature 97.9 F Temperature 98.9 F Results - Labs CBC & Chem 7: 05/22/19 07:30 05/22/19 08:30 Labs: Abnormal lab results 05/22/19 05/22/19 Range/Units 07:30 08:30 RBC 2.41 L (3.65-5.03) M/mm3 Hgb 7.8 L (10.1-14.3) gm/dl Hct 22.9 L (30.3-42.9) % MCH 33 H (28-32) pg RDW 22.1 H (13.2-15.2) % Lymph % (Auto) 36.1 H (13.4-35.0) % [place] % (Auto) 15.1 H (0.0-7.3) % Eos % (Auto) 10.1 H (0.0-4.3) % [place] # 1.3 H (0.0-0.8) K/mm3 Eos # 0.9 H (0.0-0.4) K/mm3 Seg Neutrophils % 37.0 L (40.0-70.0) % BUN 3 L (7-17) mg/dL Creatinine 0.3 L (0.7-1.2) mg/dL Total Bilirubin 1.40 H (0.1-1.2) mg/dL Albumin 3.7 L (3.9-5) g/dL - Imaging and Cardiology CT scan - abdomen: report reviewed, image reviewed (no acute intra-abdominal findings) Assessment and Plan Cultures: 05/20/2019 blood culture: No growth A/P: 24-year-old female with no significant past medical history who presented to the emergency room on 05/20/2019 with complaints of lower abdominal pain: 1) Leukocytosis, possibly secondary to PID: Ultrasound revealed a retained IUD. CT abdomen pelvis without any acute findings. UA does not show any pyuria. Blood cultures with no growth thus far. Check GC NAAT. 2) Nausea, vomiting and diarrhea: Resolved. 3) Cefepime allergy: She reports cefepime and vancomycin gave her hives when she received these antibiotics in the past for a pneumonia. She has tolerated amoxicillin and Augmentin without issues. 4) Anemia Recs: Continue clindamycin and doxycycline for now Ordered oral Augmentin challenge x 1, if tolerates well, can discharge on PO Aug mentin 875 mg twice a day + PO Doxycycline 100 mg BID x 7 days Planned for IUD removal in [employer] [facility] clinic GC NAAT ordered Nancy Trimble MD, FACP [facility] ([facility] C: [phone] O: [phone] F: [phone]
[2019-05-22] MEDS ORDERED: AUGMENTIN 875 MG PO ONE (17:00)
[2019-05-22] MEDS ORDERED: MORPHINE IV PRN (17:13)
[2019-05-22] MEDS ORDERED: ALUM-MAG HYDROX-SIMETH 200-200-20MG/5ML PO ONE (18:00)
[2019-05-22] MEDS: D5LR 1,000 ML IV SCH (20:17)
[2019-05-22] MEDS ORDERED: DILAUDID IV PRN (20:33)
[2019-05-22] MEDS ORDERED: XANAX PO PRN (20:33)
[2019-05-22] MEDS ORDERED: NARCAN 0.4 MG/1 ML IV PRN (20:33)
[2019-05-22] MEDS ORDERED: BENADRYL IV PRN (20:33)
[2019-05-22] MEDS ORDERED: REGLAN IV PRN (20:33)
--- NOTE | 2019-05-22 21:01 | Consultation ---
History of Present Illness - Reason for Consult Consult date: 05/22/19 sickle cell crisis Requesting physician: YAKOV BRANCH - History of Present Illness 24-year-old -[place] female with history of sickle cell disease and pulmonary embolism x2 (2014, 2016) anticoagulated on Xarelto who presented to [facility] ED on 05/20/2019 with complaints of lower abdominal pain. Pain was accompanied by nausea, vomiting and some loose watery stools. Patient states that her symptoms began approximately 1 week ago and worsened over the past 3 days before presenting to the ED. On presentation she was noted to have significant leukocytosis of 22K. she was empirically started on clindamycin and doxycycline and ID was consultative. She was later found to be in sickle cell crisis. Patient states that she was hospitalized for sickle cell crisis 3 weeks ago at [place], and 2 months ago at [place]. Pt states that her hospitalization at [place] was prolonged and complicated by the need for transfusions. Past History Past Medical History: pulmonary embolism ((2014,2016) on anticoagulation with Xarelto), other (sickle cell, vaginal delivery 1) Social history: no significant social history, single. denies: smoking, alcohol abuse, prescription drug abuse Family history: no significant family history Medications and Allergies Allergies Allergy/AdvReac Type Severity Reaction Status Date / Time cefepime Allergy Hives Verified 05/20/19 10:21 shellfish derived Allergy Swelling Verified 05/20/19 10:21 vancomycin Allergy Hives Verified 05/20/19 10:21 Home Medications Medication Instructions Recorded Confirmed Last Taken Type Nitrofurantoin [place]/M-Cryst 100 mg PO Q12HR #10 capsule 05/20/19 Unknown Rx [Macrobid CAP] Phenazopyridine [Pyridium] 100 mg PO TID #8 tab 05/20/19 Unknown Rx Active Meds: Active Medications Amitriptyline HCl (Elavil) 25 mg PO QHS MANAS Doxycycline Hyclate 100 mg/ (Sodium Chloride) 250 mls @ 250 mls/hr IV Q12HR [facility]; Protocol Last Admin: 05/22/19 10:17 Dose: 250 mls/hr Documented by: Clindamycin HCl (Cleocin 900 Mg/50 Ml) 900 mg in 50 mls @ 100 mls/hr IV Q8HR [facility] Last Admin: 05/22/19 18:14 Dose: 100 mls/hr Documented by: Dextrose/Sodium Chloride (D5/0.45ns) 1,000 mls @ 125 mls/hr IV DIRECT MANAS Ibuprofen (Ibuprofen) 800 mg PO Q6HR [facility] Morphine Sulfate (Morphine) 2 mg IV Q2H PRN PRN Reason: Pain, Moderate (4-6) Last Admin: 05/22/19 20:00 Dose: 2 mg Documented by: Morphine Sulfate (Morphine) 15 mg PO Q4H PRN PRN Reason: Pain, Moderate (4-6) Multivitamins (Theragran Tab) 1 each PO QDAY [facility] Ondansetron HCl (Zofran) 4 mg IV Q4H PRN PRN Reason: Nausea And Vomiting Oxycodone HCl (Oxycontin) 20 mg PO Q8HR [facility] Oxycodone/Acetaminophen (Percocet 5/325) 2 tab PO Q4H PRN PRN Reason: Pain, Moderate (4-6) Last Admin: 05/21/19 04:45 Dose: 2 tab Documented by: Potassium Chloride (K-Dur) 40 meq PO QDAY [facility] Last Admin: 05/22/19 10:23 Dose: 40 meq Documented by: Review of Systems All systems: negative (reviewed and no additional remarkable complaints except as noted below) Gastrointestinal: abdominal pain, nausea Genitourinary Female: pelvic pain Musculoskeletal: hot joints, other (shoulder and back pain related to sickle cell crisis) Exam - Physical Exam Narrative exam: Physical exam General appearance: Present: No acute distress, 193, well-developed, well- nourished, young adult female - EENT Eyes: Present: PERRL, EOM intact ENT: hearing intact, normal dentition - Neck Neck: Present: supple, normal ROM - Respiratory Respiratory effort: Non-labored Respiratory: T8 bilaterally - Cardiovascular Heart rate: 94 (bpm) Rhythm: regular Heart Sounds: Present: S1 & S2. Absent: rub, click - Extremities Extremities: no ischemia, pulses intact, abnormal - Peripheral Assessment Peripheral Pulses: within normal limits - Abdominal General gastrointestinal: soft, non-tender, normal bowel sounds - Integumentary Integumentary: Present: warm, dry - Musculoskeletal Musculoskeletal: generalized weakness related to sickle cell crisis, joint stiffness and warmth -Neurological Neurological: CN II-XII grossly intact - Psychiatric Psychiatric: cooperative - Constitutional Vitals: Temp Pulse Resp BP Pulse Ox 98.6 F 94 H 20 107/61 98 05/22/19 16:36 05/22/19 16:36 05/22/19 16:36 05/22/19 16:36 05/22/19 16:36 Results - Labs CBC & Chem 7: 05/22/19 07:30 05/22/19 08:30 Labs: Abnormal lab results 05/22/19 05/22/19 Range/Units 07:30 08:30 RBC 2.41 L (3.65-5.03) M/mm3 Hgb 7.8 L (10.1-14.3) gm/dl Hct 22.9 L (30.3-42.9) % MCH 33 H (28-32) pg RDW 22.1 H (13.2-15.2) % Lymph % (Auto) 36.1 H (13.4-35.0) % [place] % (Auto) 15.1 H (0.0-7.3) % Eos % (Auto) 10.1 H (0.0-4.3) % [place] # 1.3 H (0.0-0.8) K/mm3 Eos # 0.9 H (0.0-0.4) K/mm3 Seg Neutrophils % 37.0 L (40.0-70.0) % BUN 3 L (7-17) mg/dL Creatinine 0.3 L (0.7-1.2) mg/dL Total Bilirubin 1.40 H (0.1-1.2) mg/dL Albumin 3.7 L (3.9-5) g/dL Assessment and Plan 24-year-old -[place] female with history of sickle cell disease and pul monary embolism x2 (2014, 2016) anticoagulated on Xarelto who presented to [facility] ED on 05/20/2019 with complaints of lower abdominal pain. She was later found to be in sickle cell crisis. Sickle cell crisis -Continue supportive care -Pain management -Continue IV hydration -Retic count pending -Continue to monitor Retic count -Continue to monitor CBC -Start folic acid and multivitamin Chronic Anemia -no s/s of active bleeding -Continue to monitor Hgb -Transfuse prn -started on multivitamin History of Pulmonary Embolism -x2 (2014 & 2016) -On Xarelto -Continue ac on Xarelto PID -Ruled out -Pelvic US was unremarkable. No findings to suggest PID on ultrasound or CT Suprapubic pain -being managed per primary DVT PPX -on Xarelto Thank you for the consult and we will follow along.
[2019-05-22] MEDS ORDERED: ELAVIL PO SCH (22:00)
[2019-05-22] MEDS: OxyCONTIN PO SCH (22:25)
[2019-05-22] MEDS: FOLVITE PO SCH (22:25)
[2019-05-22] MEDS: THERAGRAN Tab PO SCH (22:26)
[2019-05-22] MEDS: XARELTO PO SCH (22:41)
[2019-05-23] MEDS: CLEOCIN 900 MG/50 mL 900 MG/50 ML BAG IV SCH ×2 (02:19→09:44)
[2019-05-23] MEDS: MORPHINE PO PRN ×2 (02:20→12:15)
[2019-05-23] MEDS: D5/0.45NS 1,000 ML IV SCH ×2 (02:21→09:44)
[2019-05-23] MEDS: IBUPROFEN PO SCH ×3 (04:26→17:34)
[2019-05-23 05:37] LABS: Hematocrit 22.8 % (30.3-42.9); Hemoglobin 7.9 gm/dl (10.1-14.3); Mean Corpuscular HGB Conc 35 % (30-34); Mean Corpuscular Volume 93 fl (79-97); Platelet Count 435 K/mm3 (140-440); Red Blood Count 2.45 M/mm3 (3.65-5.03)
[2019-05-23 05:40] LABS: Red Cell Distribution Width 22.1 % (13.2-15.2)
[2019-05-23] MEDS: OxyCONTIN PO SCH ×3 (06:06→22:27)
[2019-05-23 07:40] LABS: Basophils % (Manual) 0 % (0.0-1.8); Total Cells Counted 100
[2019-05-23 07:50] LABS: Anisocytosis 1+
[2019-05-23 07:51] LABS: Hypochromasia Few; Platelet Estimate Consistent w Auto; Poikilocytosis 1+; Sickle Cells 2+; Target Cells 1+
[2019-05-23] MEDS: THERAGRAN Tab PO SCH (09:42)
[2019-05-23] MEDS: K-DUR PO SCH (09:43)
[2019-05-23] MEDS: FOLVITE PO SCH (09:44)
[2019-05-23] MEDS: DOXYCYCLINE HYCLATE 100 MG in NACL 0.9% 250ML 250 ML IV SCH (12:13)
--- NOTE | 2019-05-23 13:50 | Progress Note ---
Assessment and Plan Cultures: 05/20/2019 blood culture: No growth A/P: 24-year-old female with no significant past medical history who presented to the emergency room on 05/20/2019 with complaints of lower abdominal pain: 1) Leukocytosis, possibly secondary to PID: Ultrasound revealed a retained IUD. CT abdomen pelvis without any acute findings. UA does not show any pyuria. Blood cultures with no growth thus far. Check GC NAAT. 2) Nausea, vomiting and diarrhea: Resolved. 3) Cefepime allergy: She reports cefepime and vancomycin gave her hives when she received these antibiotics in the past for a pneumonia. She has tolerated amoxicillin and Augmentin without issues. 4) Anemia Recs: Discontinue Clindamycin Start PO Augmentin 875 mg twice a day + PO Doxycycline 100 mg BID x 7 days Planned for IUD removal in [employer] clinic GC NAAT ordered [facility] M: [phone] O:[phone] Subjective Date of service: 05/23/19 Principal diagnosis: PID/UTI Interval history: Patient seen and examined. Reports continued back and abdominal pain. Objective - Exam Narrative Exam: Constitutional: Alert, cooperative. No acute distress Head, Ears, Nose: Normocephalic, atraumatic. External ears, nose normal Eyes: Conjunctivae/corneas clear. No icterus. No ptosis. Neck: Supple, no meningeal signs Oral: dentition fair, no thrush Cardiovascular: S1, S2 normal. Respiratory: Good air entry, clear to auscultation bilaterally GI: Soft, lower abdominal tenderness; bowel sounds normal. No peritoneal signs Musculoskeletal: No pedal edema, no cyanosis. Skin: No rash or abscess Hem/Lymphatic: No palpable cervical or supraclavicular nodes. No lymphangitis Psych: Mood ok. Affect normal Neurological: Awake, alert, oriented. No gross abnormality - Constitutional Vitals: Vital Signs Temp Pulse Resp BP Pulse Ox 97.9 F 86 16 91/52 98 05/23/19 08:04 05/23/19 08:04 05/23/19 08:04 05/23/19 08:04 05/23/19 08:04 Temperature -Last 24 Hours Temperature 97.9 F Temperature 98.7 F Temperature 98.4 F Temperature 98.8 F Temperature 98.6 F - Labs CBC & Chem 7: 05/23/19 05:15 05/22/19 08:30 Labs: Abnormal lab results 05/22/19 05/23/19 05/23/19 Range/Units 21:28 05:15 05:15 RBC 2.45 L (3.65-5.03) M/mm3 Hgb 7.9 L (10.1-14.3) gm/dl Hct 22.8 L (30.3-42.9) % MCHC 35 H (30-34) % RDW 22.1 H (13.2-15.2) % Lymphocytes % (Manual) 38.0 H (13.4-35.0) % Eosinophils % (Manual) 10.0 H (0.0-4.3) % Nucleated RBC % 2.0 H (0.0-0.9) % Eosinophils # (Manual) 0.9 H (0.0-0.4) K/mm3 Percent Retic 3.12 H 3.31 H (0.78-2.58) % Lactate Dehydrogenase 196 H (91-180) units/L
--- NOTE | 2019-05-23 16:54 | Progress Note ---
Assessment and Plan Assessment and plan: 24-year-old -Mexican female with history of sickle cell disease and pulmonary embolism x2 (2014, 2016) anticoagulated on Xarelto who presented to [facility] ED on 05/20/2019 with complaints of lower abdominal pain. She was later found to be in sickle cell crisis. Sickle cell crisis -Continue supportive care -Pain management -Continue IV hydration -Repeat retic count -Continue to monitor Retic count -Continue to monitor CBC -Started folic acid and multivitamin -Consult Hematology Chronic Anemia -no s/s of active bleeding -Continue to monitor Hgb -Transfuse prn -started on multivitamin History of Pulmonary Embolism -x2 (2014 & 2016) -On Xarelto -Continue ac on Xarelto Lower abd pain Gyne is Attending ID Physician following DVT PPX -on Xarelto History Interval history: Patient with sickle cell crisis Still c/o gen body pains Hospitalist Physical - Physical exam Narrative exam: Gen: Not in acute distress, lying in bed, malnourished HEENT: Normocephalic, atraumatic Neck: supple, no JVD Heart: S1 and S2 reg, no murmurs, rubs or gallop Lungs: Clear, no crackles, no rhonchi Abd: soft, Mild lower abd tender, no rebound, non distended, normal BS, Ext: No edema, no clubbing, no cyanosis Neuro: Awake,alert, Oriented X 3. No focal neurological signs Psych:normal mood - Constitutional Vitals: Temp Pulse Resp BP Pulse Ox 98.4 F 88 18 95/49 96 05/23/19 16:27 05/23/19 16:27 05/23/19 16:27 05/23/19 16:27 05/23/19 16:27 Results - Labs CBC & Chem 7: 05/24/19 07:17 05/22/19 08:30 Labs: Laboratory Last Values WBC 9.2 K/mm3 (4.5-11.0) 05/23/19 05:15 RBC 2.45 M/mm3 (3.65-5.03) L 05/23/19 05:15 Hgb 7.9 gm/dl (10.1-14.3) L 05/23/19 05:15 Hct 22.8 % (30.3-42.9) L 05/23/19 05:15 MCV 93 fl (79-97) 05/23/19 05:15 MCH 32 pg (28-32) 05/23/19 05:15 MCHC 35 % (30-34) H 05/23/19 05:15 RDW 22.1 % (13.2-15.2) H 05/23/19 05:15 Plt Count 435 K/mm3 (140-440) 05/23/19 05:15 Lymph % (Auto) 36.1 % (13.4-35.0) H 05/22/19 07:30 [place] % (Auto) 15.1 % (0.0-7.3) H 05/22/19 07:30 Eos % (Auto) 10.1 % (0.0-4.3) H 05/22/19 07:30 Baso % (Auto) 1.7 % (0.0-1.8) 05/22/19 07:30 Lymph # 3.1 K/mm3 (1.2-5.4) 05/22/19 07:30 [place] # 1.3 K/mm3 (0.0-0.8) H 05/22/19 07:30 Eos # 0.9 K/mm3 (0.0-0.4) H 05/22/19 07:30 Baso # 0.1 K/mm3 (0.0-0.1) 05/22/19 07:30 Add Manual Diff Complete 05/23/19 05:15 Total Counted 100 05/23/19 05:15 Seg Neutrophils % 37.0 % (40.0-70.0) L 05/22/19 07:30 Seg Neuts % (Manual) 45.0 % (40.0-70.0) 05/23/19 05:15 0 % 05/23/19 05:15 38.0 % (13.4-35.0) H 05/23/19 05:15 Reactive Lymphs % (Man) 0 % 05/23/19 05:15 6.0 % (0.0-7.3) 05/23/19 05:15 10.0 % (0.0-4.3) H 05/23/19 05:15 0 % (0.0-1.8) 05/23/19 05:15 1.0 % 05/23/19 05:15 0 % 05/23/19 05:15 0 % 05/23/19 05:15 0 % 05/23/19 05:15 Nucleated RBC % 2.0 % (0.0-0.9) H 05/23/19 05:15 Seg Neutrophils # 3.2 K/mm3 (1.8-7.7) 05/22/19 07:30 Seg Neutrophils # Man 4.1 K/mm3 (1.8-7.7) 05/23/19 05:15 Band Neutrophils # 0.0 K/mm3 05/23/19 05:15 3.5 K/mm3 (1.2-5.4) 05/23/19 05:15 Abs React Lymphs (Man) 0.0 K/mm3 05/23/19 05:15 0.6 K/mm3 (0.0-0.8) 05/23/19 05:15 0.9 K/mm3 (0.0-0.4) H 05/23/19 05:15 0.0 K/mm3 (0.0-0.1) 05/23/19 05:15 0.1 K/mm3 05/23/19 05:15 0.0 K/mm3 05/23/19 05:15 0.0 K/mm3 05/23/19 05:15 Blast Cells # 0.0 K/mm3 05/23/19 05:15 WBC Morphology Not Reportable 05/23/19 05:15 Hypersegmented Neuts Not Reportable 05/23/19 05:15 Hyposegmented Neuts Not Reportable 05/23/19 05:15 Hypogranular Neuts Not Reportable 05/23/19 05:15 Not Reportable 05/23/19 05:15 Not Reportable 05/23/19 05:15 Not Reportable 05/23/19 05:15 Not Reportable 05/23/19 05:15 Not Reportable 05/23/19 05:15 Not Reportable 05/23/19 05:15 Consistent w auto 05/23/19 05:15 Not Reportable 05/23/19 05:15 Plt Clumps, EDTA Not Reportable 05/23/19 05:15 Not Reportable 05/23/19 05:15 Not Reportable 05/23/19 05:15 Not Reportable 05/23/19 05:15 Plt Morphology Comment Not Reportable 05/23/19 05:15 RBC Morphology Not Reportable 05/23/19 05:15 Dimorphic RBCs Not Reportable 05/23/19 05:15 Not Reportable 05/23/19 05:15 Few 05/23/19 05:15 1+ 05/23/19 05:15 1+ 05/23/19 05:15 Few 05/23/19 05:15 Not Reportable 05/23/19 05:15 Not Reportable 05/23/19 05:15 Not Reportable 05/23/19 05:15 2+ 05/23/19 05:15 1+ 05/23/19 05:15 Not Reportable 05/23/19 05:15 Not Reportable 05/23/19 05:15 Not Reportable 05/23/19 05:15 Not Reportable 05/23/19 05:15 Not Reportable 05/23/19 05:15 Not Reportable 05/23/19 05:15 Not Reportable 05/23/19 05:15 Not Reportable 05/23/19 05:15 Not Reportable 05/23/19 05:15 Acanthocytes (Spur) Not Reportable 05/23/19 05:15 Rouleaux Not Reportable 05/23/19 05:15 Not Reportable 05/23/19 05:15 Not Reportable 05/23/19 05:15 Not Reportable 05/23/19 05:15 Percent Retic 3.31 % (0.78-2.58) H 05/23/19 05:15 Not Reportable 05/23/19 05:15 Hem Pathologist Commnt No 05/23/19 05:15 Sodium 138 mmol/L (137-145) 05/22/19 08:30 Potassium 3.7 mmol/L (3.6-5.0) 05/22/19 08:30 Chloride 103.7 mmol/L (98-107) 05/22/19 08:30 Carbon Dioxide 24 mmol/L (22-30) 05/22/19 08:30 14 mmol/L 05/22/19 08:30 BUN 3 mg/dL (7-17) L 05/22/19 08:30 0.3 mg/dL (0.7-1.2) L 05/22/19 08:30 Estimated GFR > 60 ml/min 05/22/19 08:30 10 % 05/22/19 08:30 Glucose 92 mg/dL (65-100) 05/22/19 08:30 Lactic Acid 0.70 mmol/L (0.7-2.0) 05/20/19 17:11 Calcium 9.0 mg/dL (8.4-10.2) 05/22/19 08:30 1.40 mg/dL (0.1-1.2) H 05/22/19 08:30 AST 14 units/L (5-40) 05/22/19 08:30 ALT 9 units/L (7-56) 05/22/19 08:30 43 units/L (35-129) 05/22/19 08:30 196 units/L (91-180) H 05/23/19 05:15 6.7 g/dL (6.3-8.2) 05/22/19 08:30 3.7 g/dL (3.9-5) L 05/22/19 08:30 1.2 % 05/22/19 08:30 Yellow (Yellow) 05/20/19 10:38 Clear (Clear) 05/20/19 10:38 5.0 (5.0-7.0) 05/20/19 10:38 Ur Specific [place] 1.012 (1.003-1.030) 05/20/19 10:38 <15 mg/dl mg/dL (Negative) 05/20/19 10:38 Neg mg/dL (Negative) 05/20/19 10:38 Neg mg/dL (Negative) 05/20/19 10:38 Neg (Negative) 05/20/19 10:38 Neg (Negative) 05/20/19 10:38 Neg (Negative) 05/20/19 10:38 < 2.0 mg/dL (<2.0) 05/20/19 10:38 Ur Leukocyte Esterase Tr (Negative) 05/20/19 10:38 1.0 /HPF (0.0-6.0) 05/20/19 10:38 < 1.0 /HPF (0.0-6.0) 05/20/19 10:38 U Epithel Cells (Auto) < 1.0 /HPF (0-13.0) 05/20/19 10:38 Few /HPF 05/20/19 10:38 Urine HCG, Qual Negative (Negative) 05/20/19 10:38 Active Medications - Current Medications Current Medications: Generic Name Dose Route Start Last Admin Trade Name Freq PRN Reason Stop Dose Admin Alprazolam 0.25 mg 05/22/19 20:33 Xanax PO Q8H PRN Anxiety Amitriptyline HCl 25 mg 05/22/19 22:00 05/22/19 22:25 Elavil PO 25 mg QHS MANAS Administration Amoxicillin/Clavulanate Potassium 1 each 05/23/19 16:00 Augmentin 875 Mg PO Q12HR MANAS Diphenhydramine HCl 25 mg 05/22/19 20:33 Benadryl IV Q6H PRN Itching Folic Acid 1 mg 05/22/19 21:00 05/23/19 09:44 Folvite PO 1 mg QDAY MANAS Administration Hydromorphone HCl 2 mg 05/22/19 20:33 Dilaudid IV 05/23/19 20:32 Q2H PRN Pain , Severe (7-10) Doxycycline Hyclate 100 mg/ 250 mls @ 250 mls/hr 05/20/19 22:00 05/23/19 12:13 Sodium Chloride IV 250 mls/hr Q12HR MANAS Administration Protocol Dextrose/Sodium Chloride 1,000 mls @ 125 mls/hr 05/22/19 21:00 05/23/19 09:44 D5/0.45ns IV 125 mls/hr DIRECT MANAS Administration Ibuprofen 800 mg 05/23/19 00:00 05/23/19 12:13 Ibuprofen PO 800 mg Q6HR MANAS Administration Metoclopramide HCl 10 mg 05/22/19 20:33 Reglan IV Q6H PRN Nausea And Vomiting Morphine Sulfate 15 mg 05/22/19 20:33 05/23/19 12:15 Morphine PO 15 mg Q4H PRN Administration Pain, Moderate (4-6) Multivitamins 1 each 05/22/19 21:00 05/23/19 09:42 Theragran Tab PO 1 each QDAY MANAS Administration Naloxone HCl 0.1 mg 05/22/19 20:33 Narcan 0.4 Mg/1 Ml IV Q2MIN PRN Res Rate </= 8 or 02 SAT < 92% Ondansetron HCl 4 mg 05/20/19 21:39 Zofran IV Q4H PRN Nausea And Vomiting Oxycodone HCl 20 mg 05/22/19 22:00 05/23/19 15:09 Oxycontin PO 20 mg Q8HR MANAS Administration Oxycodone/Acetaminophen 2 tab 05/20/19 21:39 05/21/19 04:45 Percocet 5/325 PO 2 tab Q4H PRN Administration Pain, Moderate (4-6) Potassium Chloride 40 meq 05/21/19 19:00 05/23/19 09:43 K-Dur PO 40 meq QDAY MANAS Administration Rivaroxaban 20 mg 05/22/19 21:00 05/22/19 22:41 Xarelto PO 20 mg QDAY MANAS Administration Protocol Nutrition/Malnutrition Assess - Dietary Evaluation Nutrition/Malnutrition Findings: Nutrition Notes Start: 05/22/19 15:50 Freq: Status: Active Protocol: Document 05/22/19 15:50 RM (Rec: 05/22/19 15:54 RM [id number]) Nutrition Notes Need for Assessment generated from: Low BMI Initial or Follow up Brief Note Other Pertinent Diagnosis UTI, PID Current Diet Regular Labs/Tests Reviewed Pertinent Medications Reviewed Height 5 ft 5 in Weight 46.3 kg [place] Body Weight (kg) 56.81 BMI 16.9 Subjective/Other Information Screened for low BMI. 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 Stated that her appetite is good now and that she eats all of her meals. Stated that she has always been small and that she is actually is 15 lbs heavier now than she usually is. No physical signs of malnutrition. Burn Absent Trauma Absent Nutrition Intervention Revisit per MD consult or patient Sign Off request:
[2019-05-23] MEDS: XARELTO PO SCH (17:35)
[2019-05-23] MEDS: AUGMENTIN 875 MG PO SCH ×2 (17:36→22:26)
[2019-05-23] MEDS ORDERED: DURAGESIC TD SCH (22:00)
[2019-05-23] MEDS: VIBRAMYCIN PO SCH (22:24)
[2019-05-24] MEDS: OxyCONTIN PO SCH ×4 (03:07→22:42)
[2019-05-24 07:36] LABS: Hematocrit 22.5 % (30.3-42.9); Mean Corpuscular HGB Conc 36 % (30-34); Mean Corpuscular Volume 93 fl (79-97); Platelet Count 448 K/mm3 (140-440); Red Blood Count 2.41 M/mm3 (3.65-5.03); Red Cell Distribution Width 22.2 % (13.2-15.2)
[2019-05-24 07:49] LABS: Iron 56 ug/dL (37-170); Total Iron Binding Capacity 192 mcg/dL (250-450)
--- NOTE | 2019-05-24 08:27 | Event Note ---
Date: 05/24/19 [id number]
[2019-05-24 08:49] LABS: Anisocytosis 1+; Poikilocytosis 2+; Total Cells Counted 100
[2019-05-24 08:50] LABS: Ovalocytes 1+; Sickle Cells 1+; Tear Drop Cells Few
[2019-05-24 08:51] LABS: Platelet Estimate Consistent w Auto; Schistocytes Rare; Target Cells 1+
[2019-05-24] MEDS ORDERED: MORPHINE IV NR (09:03)
[2019-05-24] MEDS ORDERED: NACL 0.9% 1000 ML 1,000 ML IV ONE (09:04)
--- NOTE | 2019-05-24 09:05 | Progress Note ---
Assessment and Plan - Patient Problems (1) PID (acute pelvic inflammatory disease) Current Visit: Yes Status: Acute Plan to address problem: will arrange for removal in OR tomorrow with discharge home Subjective - Subjective Date of service: 05/24/19 Principal diagnosis: PID/UTI Interval history: Patient remains afebrile but continues to complain about pelvic pain. She is insistent on having her IUD removed while she is hospitalized. States she has not transportation for outpatient. Patient reports: appetite normal, pain poorly controlled Objective - Vital Signs Latest vital signs: Vital Signs Temp Pulse Resp BP BP Pulse Ox 05/24/19 04:55 98.0 F 87 105/53 05/24/19 01:17 98.0 F 81 18 99/54 96 05/23/19 21:08 98.3 F 92 H 18 100/45 94 05/23/19 16:27 98.4 F 88 18 95/49 96 Intake and Output 05/23/19 05/24/19 05/24/19 22:59 06:59 14:59 Intake Total 1320 360 Balance 1320 360 Intake: Oral 720 360 Intake, Free Water 600 Other: Total, Intake Amount 240 120 Voiding Method Toilet # Voids Void 2 1 - Labs Labs: Abnormal lab results 05/24/19 05/24/19 05/24/19 Range/Units 05:45 07:17 07:17 RBC 2.41 L (3.65-5.03) M/mm3 Hgb 8.0 L (10.1-14.3) gm/dl Hct 22.5 L (30.3-42.9) % MCH 33 H (28-32) pg MCHC 36 H (30-34) % RDW 22.2 H (13.2-15.2) % Plt Count 448 H (140-440) K/mm3 Lymphocytes % (Manual) 41.0 H (13.4-35.0) % Eosinophils % (Manual) 11.0 H (0.0-4.3) % Basophils % (Manual) 3.0 H (0.0-1.8) % Nucleated RBC % 4.0 H (0.0-0.9) % Eosinophils # (Manual) 0.9 H (0.0-0.4) K/mm3 Basophils # (Manual) 0.3 H (0.0-0.1) K/mm3 Percent Retic 4.03 H 3.89 H (0.78-2.58) % TIBC 192 L (250-450) mcg/dL Ferritin (13.0-400.0) ng/mL 05/24/19 Range/Units 07:17 RBC (3.65-5.03) M/mm3 Hgb (10.1-14.3) gm/dl Hct (30.3-42.9) % MCH (28-32) pg MCHC (30-34) % RDW (13.2-15.2) % Plt Count (140-440) K/mm3 Lymphocytes % (Manual) (13.4-35.0) % Eosinophils % (Manual) (0.0-4.3) % Basophils % (Manual) (0.0-1.8) % Nucleated RBC % (0.0-0.9) % Eosinophils # (Manual) (0.0-0.4) K/mm3 Basophils # (Manual) (0.0-0.1) K/mm3 Percent Retic (0.78-2.58) % TIBC (250-450) mcg/dL Ferritin 879.3 H (13.0-400.0) ng/mL
--- NOTE | 2019-05-24 10:10 | Progress Note ---
Assessment and Plan Cultures: 05/20/2019 blood culture: No growth A/P: 24-year-old female with no significant past medical history who presented to the emergency room on 05/20/2019 with complaints of lower abdominal pain: 1) Leukocytosis, possibly secondary to PID: Ultrasound revealed a retained IUD. CT abdomen pelvis without any acute findings. UA does not show any pyuria. Blood cultures with no growth thus far. Check GC NAAT. 2) Nausea, vomiting and diarrhea: Resolved. 3) Cefepime allergy: She reports cefepime and vancomycin gave her hives when she received these antibiotics in the past for a pneumonia. She has tolerated amoxicillin and Augmentin without issues. 4) Sickle Cell Anemia Recs: Continue PO Augmentin 875 mg twice a day, D2 of D7 Continue PO Doxycycline 100 mg BID, D2 of D7 Planned for IUD removal in [facility] Follow-up GC NAAT ordered ID is signing off, please call for questions Cinthia Montero NP [facility] M: [id number] O:[phone] Subjective Date of service: 05/24/19 Principal diagnosis: PID/UTI Objective - Constitutional Vitals: Vital Signs Temp Pulse Resp BP Pulse Ox 98.2 F 86 16 100/52 97 05/24/19 09:14 05/24/19 09:14 05/24/19 09:14 05/24/19 09:14 05/24/19 09:14 Temperature -Last 24 Hours Temperature 98.2 F Temperature 98.0 F Temperature 98.0 F Temperature 98.0 F Temperature 98.3 F Temperature 98.4 F - Labs CBC & Chem 7: 05/24/19 07:17 05/22/19 08:30 Labs: Abnormal lab results 05/24/19 05/24/19 05/24/19 Range/Units 05:45 07:17 07:17 RBC 2.41 L (3.65-5.03) M/mm3 Hgb 8.0 L (10.1-14.3) gm/dl Hct 22.5 L (30.3-42.9) % MCH 33 H (28-32) pg MCHC 36 H (30-34) % RDW 22.2 H (13.2-15.2) % Plt Count 448 H (140-440) K/mm3 Lymphocytes % (Manual) 41.0 H (13.4-35.0) % Eosinophils % (Manual) 11.0 H (0.0-4.3) % Basophils % (Manual) 3.0 H (0.0-1.8) % Nucleated RBC % 4.0 H (0.0-0.9) % Eosinophils # (Manual) 0.9 H (0.0-0.4) K/mm3 Basophils # (Manual) 0.3 H (0.0-0.1) K/mm3 Percent Retic 4.03 H 3.89 H (0.78-2.58) % TIBC 192 L (250-450) mcg/dL Ferritin (13.0-400.0) ng/mL 05/24/19 Range/Units 07:17 RBC (3.65-5.03) M/mm3 Hgb (10.1-14.3) gm/dl Hct (30.3-42.9) % MCH (28-32) pg MCHC (30-34) % RDW (13.2-15.2) % Plt Count (140-440) K/mm3 Lymphocytes % (Manual) (13.4-35.0) % Eosinophils % (Manual) (0.0-4.3) % Basophils % (Manual) (0.0-1.8) % Nucleated RBC % (0.0-0.9) % Eosinophils # (Manual) (0.0-0.4) K/mm3 Basophils # (Manual) (0.0-0.1) K/mm3 Percent Retic (0.78-2.58) % TIBC (250-450) mcg/dL Ferritin 879.3 H (13.0-400.0) ng/mL
[2019-05-24] MEDS: K-DUR PO SCH (10:16)
[2019-05-24] MEDS: THERAGRAN Tab PO SCH (10:17)
[2019-05-24] MEDS: FOLVITE PO SCH (10:17)
[2019-05-24] MEDS: AUGMENTIN 875 MG PO SCH ×2 (10:18→21:50)
[2019-05-24] MEDS: PHENERGAN PO PRN ×2 (10:19→15:53)
[2019-05-24] MEDS: MORPHINE IV PRN ×3 (10:22→21:51)
[2019-05-24] MEDS: VIBRAMYCIN PO SCH ×2 (10:27→21:50)
[2019-05-24] MEDS: NACL 0.9% 1000 ML 1,000 ML IV SCH ×2 (11:45→22:39)
[2019-05-24] MEDS: XARELTO PO SCH (15:53)
--- NOTE | 2019-05-24 17:50 | Progress Note ---
Assessment and Plan Assessment and plan: 24-year-old -[place] female with history of sickle cell disease and pulmonary embolism x2 (2014, 2016) anticoagulated on Xarelto who presented to [facility] ED on 05/20/2019 with complaints of lower abdominal pain. She was later found to be in sickle cell crisis. Sickle cell crisis -Continue supportive care -Pain management -Continue IV hydration -Repeat retic count -Continue to monitor Retic count -Continue to monitor CBC -Started folic acid and multivitamin -Consulted Hematology, and she was seen by Dr. Sloan I discussed with Dr. sloan Chronic Anemia -no s/s of active bleeding -Continue to monitor Hgb -Transfuse prn -started on multivitamin History of Pulmonary Embolism -x2 (2014 & 2016) -On Xarelto -Continue ac on Xarelto Lower abd pain Gyne is Attending ID Physician following DVT PPX -on Xarelto History Interval history: Patient with sickle cell crisis Still c/o gen body pains Hospitalist Physical - Physical exam Narrative exam: Gen: Not in acute distress, lying in bed, malnourished HEENT: Normocephalic, atraumatic Neck: supple, no JVD Heart: S1 and S2 reg, no murmurs, rubs or gallop Lungs: Clear, no crackles, no rhonchi Abd: soft, Mild lower abd tender, no rebound, non distended, normal BS, Ext: No edema, no clubbing, no cyanosis Neuro: Awake,alert, Oriented X 3. No focal neurological signs Psych:normal mood - Constitutional Vitals: Temp Pulse Resp BP Pulse Ox 98.8 F 91 H 16 98/53 96 05/24/19 16:17 05/24/19 16:17 05/24/19 16:17 05/24/19 16:17 05/24/19 16:17 Results - Labs CBC & Chem 7: 05/24/19 07:17 05/22/19 08:30 Labs: Laboratory Last Values WBC 8.4 K/mm3 (4.5-11.0) 05/24/19 07:17 RBC 2.41 M/mm3 (3.65-5.03) L 05/24/19 07:17 Hgb 8.0 gm/dl (10.1-14.3) L 05/24/19 07:17 Hct 22.5 % (30.3-42.9) L 05/24/19 07:17 MCV 93 fl (79-97) 05/24/19 07:17 MCH 33 pg (28-32) H 05/24/19 07:17 MCHC 36 % (30-34) H 05/24/19 07:17 RDW 22.2 % (13.2-15.2) H 05/24/19 07:17 Plt Count 448 K/mm3 (140-440) H 05/24/19 07:17 Lymph % (Auto) 36.1 % (13.4-35.0) H 05/22/19 07:30 [place] % (Auto) 15.1 % (0.0-7.3) H 05/22/19 07:30 Eos % (Auto) 10.1 % (0.0-4.3) H 05/22/19 07:30 Baso % (Auto) 1.7 % (0.0-1.8) 05/22/19 07:30 Lymph # 3.1 K/mm3 (1.2-5.4) 05/22/19 07:30 [place] # 1.3 K/mm3 (0.0-0.8) H 05/22/19 07:30 Eos # 0.9 K/mm3 (0.0-0.4) H 05/22/19 07:30 Baso # 0.1 K/mm3 (0.0-0.1) 05/22/19 07:30 Add Manual Diff Complete 05/24/19 07:17 Total Counted 100 05/24/19 07:17 Seg Neutrophils % 37.0 % (40.0-70.0) L 05/22/19 07:30 Seg Neuts % (Manual) 40.0 % (40.0-70.0) 05/24/19 07:17 0 % 05/24/19 07:17 41.0 % (13.4-35.0) H 05/24/19 07:17 Reactive Lymphs % (Man) 0 % 05/24/19 07:17 4.0 % (0.0-7.3) 05/24/19 07:17 11.0 % (0.0-4.3) H 05/24/19 07:17 3.0 % (0.0-1.8) H 05/24/19 07:17 1.0 % 05/24/19 07:17 0 % 05/24/19 07:17 0 % 05/24/19 07:17 0 % 05/24/19 07:17 Nucleated RBC % 4.0 % (0.0-0.9) H 05/24/19 07:17 Seg Neutrophils # 3.2 K/mm3 (1.8-7.7) 05/22/19 07:30 Seg Neutrophils # Man 3.4 K/mm3 (1.8-7.7) 05/24/19 07:17 Band Neutrophils # 0.0 K/mm3 05/24/19 07:17 3.4 K/mm3 (1.2-5.4) 05/24/19 07:17 Abs React Lymphs (Man) 0.0 K/mm3 05/24/19 07:17 0.3 K/mm3 (0.0-0.8) 05/24/19 07:17 0.9 K/mm3 (0.0-0.4) H 05/24/19 07:17 0.3 K/mm3 (0.0-0.1) H 05/24/19 07:17 0.1 K/mm3 05/24/19 07:17 0.0 K/mm3 05/24/19 07:17 0.0 K/mm3 05/24/19 07:17 Blast Cells # 0.0 K/mm3 05/24/19 07:17 WBC Morphology Not Reportable 05/24/19 07:17 Hypersegmented Neuts Not Reportable 05/24/19 07:17 Hyposegmented Neuts Not Reportable 05/24/19 07:17 Hypogranular Neuts Not Reportable 05/24/19 07:17 Not Reportable 05/24/19 07:17 Not Reportable 05/24/19 07:17 Not Reportable 05/24/19 07:17 Not Reportable 05/24/19 07:17 Not Reportable 05/24/19 07:17 Not Reportable 05/24/19 07:17 Consistent w auto 05/24/19 07:17 Not Reportable 05/24/19 07:17 Plt Clumps, EDTA Not Reportable 05/24/19 07:17 Not Reportable 05/24/19 07:17 Not Reportable 05/24/19 07:17 Not Reportable 05/24/19 07:17 Plt Morphology Comment Not Reportable 05/24/19 07:17 RBC Morphology Not Reportable 05/24/19 07:17 Dimorphic RBCs Not Reportable 05/24/19 07:17 Not Reportable 05/24/19 07:17 Not Reportable 05/24/19 07:17 2+ 05/24/19 07:17 1+ 05/24/19 07:17 Not Reportable 05/24/19 07:17 Not Reportable 05/24/19 07:17 Not Reportable 05/24/19 07:17 Not Reportable 05/24/19 07:17 1+ 05/24/19 07:17 1+ 05/24/19 07:17 Few 05/24/19 07:17 1+ 05/24/19 07:17 Not Reportable 05/24/19 07:17 Not Reportable 05/24/19 07:17 Not Reportable 05/24/19 07:17 Not Reportable 05/24/19 07:17 Not Reportable 05/24/19 07:17 Not Reportable 05/24/19 07:17 1+ 05/24/19 07:17 Acanthocytes (Spur) Not Reportable 05/24/19 07:17 Rouleaux Not Reportable 05/24/19 07:17 Not Reportable 05/24/19 07:17 Rare 05/24/19 07:17 Not Reportable 05/24/19 07:17 Percent Retic 3.89 % (0.78-2.58) H 05/24/19 07:17 Not Reportable 05/24/19 07:17 Hem Pathologist Commnt No 05/24/19 07:17 Sodium 138 mmol/L (137-145) 05/22/19 08:30 Potassium 3.7 mmol/L (3.6-5.0) 05/22/19 08:30 Chloride 103.7 mmol/L (98-107) 05/22/19 08:30 Carbon Dioxide 24 mmol/L (22-30) 05/22/19 08:30 14 mmol/L 05/22/19 08:30 BUN 3 mg/dL (7-17) L 05/22/19 08:30 0.3 mg/dL (0.7-1.2) L 05/22/19 08:30 Estimated GFR > 60 ml/min 05/22/19 08:30 10 % 05/22/19 08:30 Glucose 92 mg/dL (65-100) 05/22/19 08:30 Lactic Acid 0.70 mmol/L (0.7-2.0) 05/20/19 17:11 Calcium 9.0 mg/dL (8.4-10.2) 05/22/19 08:30 Iron 56 ug/dL (37-170) 05/24/19 07:17 TIBC 192 mcg/dL (250-450) L 05/24/19 07:17 879.3 ng/mL (13.0-400.0) H 05/24/19 07:17 1.40 mg/dL (0.1-1.2) H 05/22/19 08:30 AST 14 units/L (5-40) 05/22/19 08:30 ALT 9 units/L (7-56) 05/22/19 08:30 43 units/L (35-129) 05/22/19 08:30 196 units/L (91-180) H 05/23/19 05:15 6.7 g/dL (6.3-8.2) 05/22/19 08:30 3.7 g/dL (3.9-5) L 05/22/19 08:30 1.2 % 05/22/19 08:30 Vitamin B12 401.9 pg/mL (211-911) 05/24/19 07:17 15.50 ng/mL (7.3-26.0) 05/24/19 07:17 Yellow (Yellow) 05/20/19 10:38 Clear (Clear) 05/20/19 10:38 5.0 (5.0-7.0) 05/20/19 10:38 Ur Specific [place] 1.012 (1.003-1.030) 05/20/19 10:38 <15 mg/dl mg/dL (Negative) 05/20/19 10:38 Neg mg/dL (Negative) 05/20/19 10:38 Neg mg/dL (Negative) 05/20/19 10:38 Neg (Negative) 05/20/19 10:38 Neg (Negative) 05/20/19 10:38 Neg (Negative) 05/20/19 10:38 < 2.0 mg/dL (<2.0) 05/20/19 10:38 Ur Leukocyte Esterase Tr (Negative) 05/20/19 10:38 1.0 /HPF (0.0-6.0) 05/20/19 10:38 < 1.0 /HPF (0.0-6.0) 05/20/19 10:38 U Epithel Cells (Auto) < 1.0 /HPF (0-13.0) 05/20/19 10:38 Few /HPF 05/20/19 10:38 Urine HCG, Qual Negative (Negative) 05/20/19 10:38 Active Medications - Current Medications Current Medications: Generic Name Dose Route Start Last Admin Trade Name Freq PRN Reason Stop Dose Admin Amoxicillin/Clavulanate Potassium 1 each 05/23/19 16:00 05/24/19 10:18 Augmentin 875 Mg PO 1 each Q12HR MANAS Administration Doxycycline Hyclate 100 mg 05/23/19 22:00 05/24/19 10:27 Vibramycin PO 100 mg BID MANAS Administration Folic Acid 1 mg 05/22/19 21:00 05/24/19 10:17 Folvite PO 1 mg QDAY MANAS Administration Sodium Chloride 1,000 mls @ 125 mls/hr 05/24/19 09:00 05/24/19 11:45 Nacl 0.9% 1000 Ml IV 05/26/19 16:26 125 mls/hr DIRECT MANAS Administration Morphine Sulfate 2 mg 05/24/19 09:00 05/24/19 15:53 Morphine IV 05/25/19 08:59 2 mg Q6H PRN Administration Pain, Moderate (4-6) Ondansetron HCl 4 mg 05/20/19 21:39 Zofran IV Q4H PRN Nausea And Vomiting Oxycodone HCl 20 mg 05/23/19 22:00 05/24/19 16:12 Oxycontin PO Not Given Q6H MANAS Oxycodone/Acetaminophen 2 tab 05/20/19 21:39 05/21/19 04:45 Percocet 5/325 PO 2 tab Q4H PRN Administration Pain, Moderate (4-6) Potassium Chloride 40 meq 05/21/19 19:00 05/24/19 10:16 K-Dur PO 40 meq QDAY MANAS Administration Promethazine HCl 25 mg 05/24/19 10:00 05/24/19 15:53 Phenergan PO 25 mg Q6H PRN Administration Nausea And Vomiting Rivaroxaban 20 mg 05/22/19 21:00 05/24/19 15:53 Xarelto PO 20 mg QDAY MANAS Administration Protocol Nutrition/Malnutrition Assess - Dietary Evaluation Nutrition/Malnutrition Findings: Nutrition Notes Start: 05/22/19 15:50 Freq: Status: Active Protocol: Document 05/22/19 15:50 RM (Rec: 05/22/19 15:54 RM [id number]) Nutrition Notes Need for Assessment generated from: Low BMI Initial or Follow up Brief Note Other Pertinent Diagnosis UTI, PID Current Diet Regular Labs/Tests Reviewed Pertinent Medications Reviewed Height 5 ft 5 in Weight 46.3 kg [place] Body Weight (kg) 56.81 BMI 16.9 Subjective/Other Information Screened for low BMI. 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 Stated that her appetite is good now and that she eats all of her meals. Stated that she has always been small and that she is actually is 15 lbs heavier now than she usually is. No physical signs of malnutrition. Burn Absent Trauma Absent Nutrition Intervention Revisit per MD consult or patient Sign Off request:
--- NOTE | 2019-05-25 00:27 | Consultation ---
REFERRING PHYSICIAN: Parth Gallagher MD REASON FOR CONSULTATION: Sickle cell pain issues. HISTORY OF PRESENT ILLNESS: I saw the patient, a 24-year-old female in the [facility] floor. The patient came to the hospital because of lower abdominal pain. The patient has a history of sickle cell disease. The patient has moved from [place]. She was on hydroxyurea in the past, but the dose was titrated up and down, but she had nausea and she is not on it anymore. The patient was on folic acid. The patient says for the last few months, she has been getting admitted every 6 weeks. She has a kid at home and a sister. At this time, mainly complaining of chest pain, shoulder pain. The patient says the pelvic pain issues has caused chest pain and other body joint pains. The patient was on hydration. The patient is able to drink oral water adequate amount. She is complaining of these pains; however, she appears not to be in any distress during the time of discussion. No vomiting, no diarrhea, no hematemesis, no hematochezia. No seizure or syncope. No loss of consciousness. No fever. The patient has not been intubated. The patient has been going to the [facility]. A few months ago she was also at [facility] and the patient states she needed transfusion at that time. PAST MEDICAL HISTORY: Includes pulmonary embolism in 2014 and 2017. The patient is on anticoagulation with Xarelto. Other issues include sickle cell. PAST SURGICAL HISTORY: Delivery x 1 vaginal. SOCIAL HISTORY: Single, no history of tobacco or alcohol usage. The patient says when she is good, she does not take any pain medications. Otherwise, she has to take morphine, OxyContin or Tylenol combination. FAMILY HISTORY: Noncontributory. ALLERGIES: CEFEPIME, VANCOMYCIN, SHELLFISH. HOME MEDICATIONS: Include nitrofurantoin and Pyridium. PRESENT MEDICATIONS: Amoxicillin, doxycycline, folic acid, Zofran, oxycodone HCL 20 mg q.6 p.o., Xarelto 20 mg. PHYSICAL EXAMINATION: VITAL SIGNS: Temperature 98, pulse 87, respirations 18, BP 105/53. HEENT: Pallor present. No icterus. NECK: No neck lymph nodes. HEART: S1, S2. LUNGS: Clear to auscultation. ABDOMEN: Soft. EXTREMITIES: No calf tenderness. NEUROLOGIC: Alert, awake, oriented. The patient is complaining of pain, but she is ambulating well and does not appear to be in acute distress. ASSESSMENT AND PLAN: 1. Sickle cell pain issues. The patient was on hydration, IV access issues were there. I discussed with the nurse regarding same. 2. Pain medication morales, the patient is on OxyContin 20 mg q.6 hours and Tylenol as a p.r.n. medication. The patient is also on folic acid. The patient is on antibiotic. Hemoglobin is 8, MCV is normal. 3. Thrombocytosis, likely reactive. 4. History of pulmonary embolism. The patient is on Xarelto. The details of this is not clear. As per information, the patient had a PE in 2014 and 2016. 5. The patient was at [facility] recently a few months ago and transfusion was given. The patient goes to [facility] for sickle cell issues. The patient was on Hydrea in the past, but not on it because of severe nausea. 6. I discussed with nurse regarding incentive spirometry, pain medications, hydration if IV access is an issue, 2-3 liters of oral hydration, and follow would help. We will do deficiency investigations for the anemia. Once she is clinically better, she will be discharged and will follow with [facility] system. JOB# [id number] JENNIFER/ALCIDES
[2019-05-25] MEDS: MORPHINE IV PRN (04:27)
[2019-05-25] MEDS: OxyCONTIN PO SCH (04:28)
--- NOTE | 2019-05-25 07:02 | Hem/Onc Progress Note ---
Assessment and Plan 1. Sickle cell pain issues. The patient was on hydration, IV access issues were there. I discussed with the nurse regarding same. 2. Pain medication morales, the patient is on OxyContin 20 mg q.6 hours and Tylenol as a p.r.n. medication. The patient is also on folic acid. The patient is on antibiotic. Hemoglobin is 8, MCV is normal. 3. Thrombocytosis, likely reactive. 4. History of pulmonary embolism. The patient is on Xarelto. The details of this is not clear. As per information, the patient had a PE in 2014 and 2016. 5. The patient was at [facility] recently a few months ago and transfusion was given. The patient goes to [facility] for sickle cell issues. The patient was on Hydrea in the past, but not on it because of severe nausea. 6. I discussed with nurse regarding incentive spirometry, pain medications, hydration if IV access is an issue, 2-3 liters of oral hydration, and follow would help. We will do deficiency investigations for the anemia. Once she is clinically better, she will be discharged and will follow with [facility]. due iucd removal pt on iv moprhine - hydration and incentive spirometry will come off iv morphine shortly from heme perspective IUCD removal - ob/gyn following hb stable - Patient Problems (1) Sickle cell anemia with pain Current Visit: Yes Status: Acute Subjective Date of service: 05/25/19 Principal diagnosis: sickle cell pain Interval history: pain better - but present Objective - Exam Narrative Exam: Pain - abdo - shoulder General appearance appears better Performance status self caring Eyes - no icterus ENT no thrush LNs cervical not palpable Neck - normal ROM Respiratory SOB Breath sounds -CTA CVS S1 S2 + Extremities normal temperature General GI Soft Rectal deferred female - deferred Skin warm Musculoskeletal moving normal Neurologically no focal deficit - Constitutional Vitals: Last Vital Signs Temp 98.7 F 05/25/19 04:10 Pulse 88 05/25/19 04:10 Resp 18 05/25/19 04:57 BP 100/54 05/25/19 04:10 Pulse Ox 97 05/25/19 04:10 - Labs Lab Results: Laboratory Results - last 24 hr 05/24/19 05/24/19 05/24/19 07:17 07:17 07:17 WBC 8.4 RBC 2.41 L Hgb 8.0 L Hct 22.5 L MCV 93 MCH 33 H MCHC 36 H RDW 22.2 H Plt Count 448 H Add Manual Diff Complete Total Counted 100 Seg Neuts % (Manual) 40.0 Band Neutrophils % 0 Lymphocytes % (Manual) 41.0 H Reactive Lymphs % (Man) 0 Monocytes % (Manual) 4.0 Eosinophils % (Manual) 11.0 H Basophils % (Manual) 3.0 H Metamyelocytes % 1.0 Myelocytes % 0 Promyelocytes % 0 Blast Cells % 0 Nucleated RBC % 4.0 H Seg Neutrophils # Man 3.4 Band Neutrophils # 0.0 Lymphocytes # (Manual) 3.4 Abs React Lymphs (Man) 0.0 Monocytes # (Manual) 0.3 Eosinophils # (Manual) 0.9 H Basophils # (Manual) 0.3 H Metamyelocytes # 0.1 Myelocytes # 0.0 Promyelocytes # 0.0 Blast Cells # 0.0 WBC Morphology Not Reportable Hypersegmented Neuts Not Reportable Hyposegmented Neuts Not Reportable Hypogranular Neuts Not Reportable Smudge Cells Not Reportable Toxic Granulation Not Reportable Toxic Vacuolation Not Reportable Dohle Bodies Not Reportable Pelger-Huet Anomaly Not Reportable Nicole Rods Not Reportable Platelet Estimate Consistent w auto Clumped Platelets Not Reportable Plt Clumps, EDTA Not Reportable Large Platelets Not Reportable Giant Platelets Not Reportable Platelet Satelliting Not Reportable Plt Morphology Comment Not Reportable RBC Morphology Not Reportable Dimorphic RBCs Not Reportable Polychromasia Not Reportable Hypochromasia Not Reportable Poikilocytosis 2+ Anisocytosis 1+ Microcytosis Not Reportable Macrocytosis Not Reportable Spherocytes Not Reportable Pappenheimer Bodies Not Reportable Sickle Cells 1+ Target Cells 1+ Tear Drop Cells Few Ovalocytes 1+ Helmet Cells Not Reportable Sawant-Pink Bodies Not Reportable [place] Rings Not Reportable Janiya Cells Not Reportable Bite Cells Not Reportable Crenated Cell Not Reportable Elliptocytes 1+ Acanthocytes (Spur) Not Reportable Rouleaux Not Reportable Hemoglobin C Crystals Not Reportable Schistocytes Rare Malaria parasites Not Reportable Percent Retic 3.89 H Maurice Bodies Not Reportable Hem Pathologist Commnt No Iron 56 TIBC 192 L Ferritin 879.3 H Vitamin B12 Folate 05/24/19 05/24/19 07:17 07:17 WBC RBC Hgb Hct MCV MCH MCHC RDW Plt Count Add Manual Diff Total Counted Seg Neuts % (Manual) Band Neutrophils % Lymphocytes % (Manual) Reactive Lymphs % (Man) Monocytes % (Manual) Eosinophils % (Manual) Basophils % (Manual) Metamyelocytes % Myelocytes % Promyelocytes % Blast Cells % Nucleated RBC % Seg Neutrophils # Man Band Neutrophils # Lymphocytes # (Manual) Abs React Lymphs (Man) Monocytes # (Manual) Eosinophils # (Manual) Basophils # (Manual) Metamyelocytes # Myelocytes # Promyelocytes # Blast Cells # WBC Morphology Hypersegmented Neuts Hyposegmented Neuts Hypogranular Neuts Smudge Cells Toxic Granulation Toxic Vacuolation Dohle Bodies Pelger-Huet Anomaly Nicole Rods Platelet Estimate Clumped Platelets Plt Clumps, EDTA Large Platelets Giant Platelets Platelet Satelliting Plt Morphology Comment RBC Morphology Dimorphic RBCs Polychromasia Hypochromasia Poikilocytosis Anisocytosis Microcytosis Macrocytosis Spherocytes Pappenheimer Bodies Sickle Cells Target Cells Tear Drop Cells Ovalocytes Helmet Cells Sawant-Pink Bodies [place] Rings [place] Cells Bite Cells Crenated Cell Elliptocytes Acanthocytes (Spur) Rouleaux Hemoglobin C Crystals Schistocytes Malaria parasites Percent Retic Maurice Bodies Hem Pathologist Commnt Iron TIBC Ferritin Vitamin B12 401.9 Folate 15.50 Medications & Allergies - Medications Allergies/Adverse Reactions: Allergies cefepime Allergy (Verified 05/20/19 10:21) Hives shellfish derived Allergy (Verified 05/20/19 10:21) Swelling vancomycin Allergy (Verified 05/20/19 10:21) Hives Home Medications: Home Medications Medication Instructions Recorded Confirmed Last Taken Type Nitrofurantoin [place]/M-Cryst 100 mg PO Q12HR #10 capsule 05/20/19 Unknown Rx [Macrobid CAP] Phenazopyridine [Pyridium] 100 mg PO TID #8 tab 05/20/19 Unknown Rx Amoxicillin/K Clav Tab [Augmentin 1 tab PO Q12HR #10 tab 05/24/19 Unknown Rx 875 mg] Doxycycline Hyclate [Doxycycline 100 mg PO Q12HR #10 tab 05/24/19 Unknown Rx Hyclate TAB] Active Medications: Generic Name Dose Route Start Last Admin Trade Name Freq PRN Reason Stop Dose Admin Amoxicillin/Clavulanate Potassium 1 each 05/23/19 16:00 05/24/19 21:50 Augmentin 875 Mg PO 1 each Q12HR MANAS Administration Doxycycline Hyclate 100 mg 05/23/19 22:00 05/24/19 21:50 Vibramycin PO 100 mg BID MANAS Administration Folic Acid 1 mg 05/22/19 21:00 05/24/19 10:17 Folvite PO 1 mg QDAY MANAS Administration Sodium Chloride 1,000 mls @ 125 mls/hr 05/24/19 09:00 05/24/19 22:39 Nacl 0.9% 1000 Ml IV 05/26/19 16:26 125 mls/hr DIRECT MANAS Administration Morphine Sulfate 2 mg 05/24/19 09:00 05/25/19 04:27 Morphine IV 05/25/19 08:59 2 mg Q6H PRN Administration Pain, Moderate (4-6) Ondansetron HCl 4 mg 05/20/19 21:39 Zofran IV Q4H PRN Nausea And Vomiting Oxycodone HCl 20 mg 05/23/19 22:00 05/25/19 04:28 Oxycontin PO Not Given Q6H MANAS Oxycodone/Acetaminophen 2 tab 05/20/19 21:39 05/21/19 04:45 Percocet 5/325 PO 2 tab Q4H PRN Administration Pain, Moderate (4-6) Potassium Chloride 40 meq 05/21/19 19:00 05/24/19 10:16 K-Dur PO 40 meq QDAY MANAS Administration Promethazine HCl 25 mg 05/24/19 10:00 05/24/19 15:53 Phenergan PO 25 mg Q6H PRN Administration Nausea And Vomiting Rivaroxaban 20 mg 05/22/19 21:00 05/24/19 15:53 Xarelto PO 20 mg QDAY MANAS Administration Protocol
--- NOTE | 2019-05-25 08:22 | Progress Note ---
Assessment and Plan A/P Sickle cell crisis s/p hemoatology and med consult awaiting OR for D&C and hysteroscopy for IUD removal plan to discharge home pending hemand ID recommendations Subjective - Subjective Date of service: 05/25/19 Principal diagnosis: sickle cell pain Interval history: This is a 24-year-old female presents to ED complaining of lower suprapubic pain and increased pain or urination for the past 3 days. Patient states pain is constant but worsened with urination. She states she's experienced some nausea associated vomiting. Patient describes pain as localized to pelvic region and constant. She rates pain a 10 out of 10 in nature. She states last menstrual period as 05/15/2019. Patient states that she has not been sexually active for some time now so she has not had recent intercourse. She admits to having a fever last night. She denies vaginal bleeding, vaginal discharge, diarrhea, Patient reports: appetite normal, voiding normally, pain well controlled, flatus, ambulating normally Objective - Vital Signs Latest vital signs: Vital Signs Temp Pulse Pulse Resp Resp BP BP 05/25/19 04:57 18 05/25/19 04:27 18 05/25/19 04:10 98.7 F 88 18 100/54 05/25/19 00:17 98.4 F 99 H 18 102/52 05/24/19 23:00 18 05/24/19 22:21 18 05/24/19 22:00 90 18 05/24/19 21:51 18 05/24/19 21:19 99.1 F 101 H 18 105/59 05/24/19 16:17 98.8 F 91 H 16 98/53 05/24/19 12:36 98.1 F 100 H 16 102/46 05/24/19 09:14 98.2 F 86 16 100/52 Pulse Ox 05/25/19 04:57 05/25/19 04:27 05/25/19 04:10 97 05/25/19 00:17 97 05/24/19 23:00 05/24/19 22:21 05/24/19 22:00 05/24/19 21:51 05/24/19 21:19 98 05/24/19 16:17 96 05/24/19 12:36 96 05/24/19 09:14 97 Intake and Output 05/24/19 05/25/19 05/25/19 23:59 07:59 15:59 Intake Total 1960 120 Balance 1959 120 Intake: IV 1000 NaCl 0.9% 1000 ml 1,000 1000 ml @ 125 mls/hr IV DIRECT MANAS Rx#:[id number] Oral 720 120 Intake, Free Water 240 Other: Total, Intake Amount 240 120 Voiding Method Toilet # Voids 2 Void 1 1 - Exam Breasts: Present: normal Cardiovascular: Present: Regular rate, Normal S1 Lungs: Present: Clear to auscultation, Normal air movement Abdomen: Present: normal appearance, soft, normal bowel sounds. Absent: distention, tenderness, guarding Vulva: both: normal Uterus: Present: normal. Absent: bogginess, tenderness Extremities: Present: normal - Labs Labs: Abnormal lab results 05/24/19 Range/Units 07:17 Lymphocytes % (Manual) 41.0 H (13.4-35.0) % Eosinophils % (Manual) 11.0 H (0.0-4.3) % Basophils % (Manual) 3.0 H (0.0-1.8) % Nucleated RBC % 4.0 H (0.0-0.9) % Eosinophils # (Manual) 0.9 H (0.0-0.4) K/mm3 Basophils # (Manual) 0.3 H (0.0-0.1) K/mm3
[2019-05-25] MEDS ORDERED: SILVER NITRATE TP ONE (10:43)
--- NOTE | 2019-05-25 11:08 | Anesthesia Consultation ---
Anesthesia Consult and Med Hx Date of service: 05/25/19 - Airway Anesthetic Teeth Evaluation: Good ROM Head & Neck: Adequate Mental/Hyoid Distance: Adequate Mallampati Class: Class II Intubation Access Assessment: Good - Pulmonary Exam CTA: Yes - Cardiac Exam Cardiac Exam: RRR - Pre-Operative Health Status ASA Pre-Surgery Classification: ASA2 (Hx of sickle cell disease, prior PE on xarelto for GA ) - Hematic Hx Sickle Cell Disease: Yes
--- NOTE | 2019-05-25 11:10 | Anesthesia Day of Surgery ---
Anesthesia Day of Surgery - Day of Surgery Patient Examined: Yes Patient H&P Reviewed: Yes Patient is NPO: Yes
[2019-05-25] MEDS ORDERED: ZOFRAN IV PRN (11:51)
[2019-05-25] MEDS ORDERED: DIPRIVAN 10 MG/ML IV ONE (12:03)
[2019-05-25] MEDS ORDERED: XYLOCAINE MPF 2% ONE (12:03)
[2019-05-25] MEDS ORDERED: VERSED ONE (12:03)
[2019-05-25] MEDS ORDERED: SUBLIMAZE ONE (12:03)
[2019-05-25] MEDS ORDERED: REGLAN ONE (12:34)
[2019-05-25] MEDS ORDERED: ZOFRAN ONE (12:34)
[2019-05-25] MEDS ORDERED: TORADOL ONE (12:35)
[2019-05-25] MEDS ORDERED: DECADRON ONE (12:35)
[2019-05-25] MEDS ORDERED: DILAUDID ONE (13:08)
[2019-05-25] MEDS: DILAUDID IV PRN ×3 (13:09→14:13)
--- NOTE | 2019-05-25 13:49 | Operative Report ---
Operative Report Operative Report: PREOPERATIVE DIAGNOSES: 1. Missing IUD POSTOPERATIVE DIAGNOSES: 1.FEDERICO PROCEDURE PERFORMED: 1. Hysperoscopy ANESTHESIA: General ESTIMATED BLOOD LOSS: Less than 10 cc. INDICATIONS: This is a 24-year-old -[place] female that presents with PID treated in hospital with IV abx. She had IUD in uterus unable to remove so scheduled for OR removal PROCEDURE: The patient was consented and seen in the preoperative suite. She was taken to the operative suite, placed in a dorsal lithotomy position, and placed under IV sedation. She was prepped and draped in the normal sterile fashion. Her bladder was drained with the red Woodson catheter which produced approximately 1 cc of clear yellow urine. A bimanual exam was done, was performed by Ramila Sneed. The uterus was found to be anteverted, mobile. The cervix and vagina were grossly normal with no obvious masses or deformities. A weighted speculum was placed in the posterior aspect of the vagina and the anterior lip of the cervix was grasped with the vulsellum tenaculum. The uterus was sounded to 6 cm. The cervix was sterilely dilated with Eduard dilator and then Millie dilator. The dilation was . Under direct visualization, the ostia were within normal limits. IUD seen with out string. It was grasped with grasper and removed intact. The endometrial lining was hyperplastic, however, there was no evidence of retained products or endometrial polyps. The hysteroscope was removed. The patient was taken off the dorsal lithotomy position and recovered from her IV sedation in the recovery room.
--- NOTE | 2019-05-25 15:40 | Progress Note ---
Assessment and Plan Assessment and plan: 24-year-old -[place] female with history of sickle cell disease and pulmonary embolism x2 (2014, 2016) anticoagulated on Xarelto who [facility] with complaints of lower abdominal pain. She was later found to be in sickle cell crisis. Sickle cell crisis -Continue supportive care -Pain management -Continue IV hydration tinue to monitor Retic count -Continue to monitor CBC -Started folic acid and multivitamin -Consulted Hematology, and she was seen by Dr. Sloan I discussed with Dr. Sloan Chronic Anemia -no s/s of active bleeding -Continue to monitor Hgb -Transfuse prn -started on multivitamin History of Pulmonary Embolism -x2 (2014 & 2016) -On Xarelto -Continue ac on Xarelto Lower abd pain Gyne is Attending ID Physician following s/p IUD removed today Patient medically stable to go home. Continue Antibiotics continue Xarelto from home Prescription for [place] given Follow up with Physician at [place]. History Interval history: Patient with sickle cell crisis had IUD removed today Hospitalist Physical - Physical exam Narrative exam: Gen: Not in acute distress, lying in bed, malnourished HEENT: Normocephalic, atraumatic Neck: supple, no JVD Heart: S1 and S2 reg, no murmurs, rubs or gallop Lungs: Clear, no crackles, no rhonchi Abd: soft, Mild lower abd tender, no rebound, non distended, normal BS, Ext: No edema, no clubbing, no cyanosis Neuro: Awake,alert, Oriented X 3. No focal neurological signs Psych:normal mood - Constitutional Vitals: Temp Pulse Resp BP Pulse Ox 98.6 F 95 H 14 104/50 98 05/25/19 14:50 05/25/19 14:50 05/25/19 14:50 05/25/19 14:50 05/25/19 14:50 Results - Labs CBC & Chem 7: 05/24/19 07:17 05/22/19 08:30 Labs: Laboratory Last Values WBC 8.4 K/mm3 (4.5-11.0) 05/24/19 07:17 RBC 2.41 M/mm3 (3.65-5.03) L 05/24/19 07:17 Hgb 8.0 gm/dl (10.1-14.3) L 05/24/19 07:17 Hct 22.5 % (30.3-42.9) L 05/24/19 07:17 MCV 93 fl (79-97) 05/24/19 07:17 MCH 33 pg (28-32) H 05/24/19 07:17 MCHC 36 % (30-34) H 05/24/19 07:17 RDW 22.2 % (13.2-15.2) H 05/24/19 07:17 Plt Count 448 K/mm3 (140-440) H 05/24/19 07:17 Lymph % (Auto) 36.1 % (13.4-35.0) H 05/22/19 07:30 [place] % (Auto) 15.1 % (0.0-7.3) H 05/22/19 07:30 Eos % (Auto) 10.1 % (0.0-4.3) H 05/22/19 07:30 Baso % (Auto) 1.7 % (0.0-1.8) 05/22/19 07:30 Lymph # 3.1 K/mm3 (1.2-5.4) 05/22/19 07:30 [place] # 1.3 K/mm3 (0.0-0.8) H 05/22/19 07:30 Eos # 0.9 K/mm3 (0.0-0.4) H 05/22/19 07:30 Baso # 0.1 K/mm3 (0.0-0.1) 05/22/19 07:30 Add Manual Diff Complete 05/24/19 07:17 Total Counted 100 05/24/19 07:17 Seg Neutrophils % 37.0 % (40.0-70.0) L 05/22/19 07:30 Seg Neuts % (Manual) 40.0 % (40.0-70.0) 05/24/19 07:17 0 % 05/24/19 07:17 41.0 % (13.4-35.0) H 05/24/19 07:17 Reactive Lymphs % (Man) 0 % 05/24/19 07:17 4.0 % (0.0-7.3) 05/24/19 07:17 11.0 % (0.0-4.3) H 05/24/19 07:17 3.0 % (0.0-1.8) H 05/24/19 07:17 1.0 % 05/24/19 07:17 0 % 05/24/19 07:17 0 % 05/24/19 07:17 0 % 05/24/19 07:17 Nucleated RBC % 4.0 % (0.0-0.9) H 05/24/19 07:17 Seg Neutrophils # 3.2 K/mm3 (1.8-7.7) 05/22/19 07:30 Seg Neutrophils # Man 3.4 K/mm3 (1.8-7.7) 05/24/19 07:17 Band Neutrophils # 0.0 K/mm3 05/24/19 07:17 3.4 K/mm3 (1.2-5.4) 05/24/19 07:17 Abs React Lymphs (Man) 0.0 K/mm3 05/24/19 07:17 0.3 K/mm3 (0.0-0.8) 05/24/19 07:17 0.9 K/mm3 (0.0-0.4) H 05/24/19 07:17 0.3 K/mm3 (0.0-0.1) H 05/24/19 07:17 0.1 K/mm3 05/24/19 07:17 0.0 K/mm3 05/24/19 07:17 0.0 K/mm3 05/24/19 07:17 Blast Cells # 0.0 K/mm3 05/24/19 07:17 WBC Morphology Not Reportable 05/24/19 07:17 Hypersegmented Neuts Not Reportable 05/24/19 07:17 Hyposegmented Neuts Not Reportable 05/24/19 07:17 Hypogranular Neuts Not Reportable 05/24/19 07:17 Not Reportable 05/24/19 07:17 Not Reportable 05/24/19 07:17 Not Reportable 05/24/19 07:17 Not Reportable 05/24/19 07:17 Not Reportable 05/24/19 07:17 Not Reportable 05/24/19 07:17 Consistent w auto 05/24/19 07:17 Not Reportable 05/24/19 07:17 Plt Clumps, EDTA Not Reportable 05/24/19 07:17 Not Reportable 05/24/19 07:17 Not Reportable 05/24/19 07:17 Not Reportable 05/24/19 07:17 Plt Morphology Comment Not Reportable 05/24/19 07:17 RBC Morphology Not Reportable 05/24/19 07:17 Dimorphic RBCs Not Reportable 05/24/19 07:17 Not Reportable 05/24/19 07:17 Not Reportable 05/24/19 07:17 2+ 05/24/19 07:17 1+ 05/24/19 07:17 Not Reportable 05/24/19 07:17 Not Reportable 05/24/19 07:17 Not Reportable 05/24/19 07:17 Not Reportable 05/24/19 07:17 1+ 05/24/19 07:17 1+ 05/24/19 07:17 Few 05/24/19 07:17 1+ 05/24/19 07:17 Not Reportable 05/24/19 07:17 Not Reportable 05/24/19 07:17 Not Reportable 05/24/19 07:17 Not Reportable 05/24/19 07:17 Not Reportable 05/24/19 07:17 Not Reportable 05/24/19 07:17 1+ 05/24/19 07:17 Acanthocytes (Spur) Not Reportable 05/24/19 07:17 Rouleaux Not Reportable 05/24/19 07:17 Not Reportable 05/24/19 07:17 Rare 05/24/19 07:17 Not Reportable 05/24/19 07:17 Percent Retic 3.89 % (0.78-2.58) H 05/24/19 07:17 Not Reportable 05/24/19 07:17 Hem Pathologist Commnt No 05/24/19 07:17 Sodium 138 mmol/L (137-145) 05/22/19 08:30 Potassium 3.7 mmol/L (3.6-5.0) 05/22/19 08:30 Chloride 103.7 mmol/L (98-107) 05/22/19 08:30 Carbon Dioxide 24 mmol/L (22-30) 05/22/19 08:30 14 mmol/L 05/22/19 08:30 BUN 3 mg/dL (7-17) L 05/22/19 08:30 0.3 mg/dL (0.7-1.2) L 05/22/19 08:30 Estimated GFR > 60 ml/min 05/22/19 08:30 10 % 05/22/19 08:30 Glucose 92 mg/dL (65-100) 05/22/19 08:30 Lactic Acid 0.70 mmol/L (0.7-2.0) 05/20/19 17:11 Calcium 9.0 mg/dL (8.4-10.2) 05/22/19 08:30 Iron 56 ug/dL (37-170) 05/24/19 07:17 TIBC 192 mcg/dL (250-450) L 05/24/19 07:17 879.3 ng/mL (13.0-400.0) H 05/24/19 07:17 1.40 mg/dL (0.1-1.2) H 05/22/19 08:30 AST 14 units/L (5-40) 05/22/19 08:30 ALT 9 units/L (7-56) 05/22/19 08:30 43 units/L (35-129) 05/22/19 08:30 196 units/L (91-180) H 05/23/19 05:15 6.7 g/dL (6.3-8.2) 05/22/19 08:30 3.7 g/dL (3.9-5) L 05/22/19 08:30 1.2 % 05/22/19 08:30 Vitamin B12 401.9 pg/mL (211-911) 05/24/19 07:17 15.50 ng/mL (7.3-26.0) 05/24/19 07:17 Yellow (Yellow) 05/20/19 10:38 Clear (Clear) 05/20/19 10:38 5.0 (5.0-7.0) 05/20/19 10:38 Ur Specific [place] 1.012 (1.003-1.030) 05/20/19 10:38 <15 mg/dl mg/dL (Negative) 05/20/19 10:38 Neg mg/dL (Negative) 05/20/19 10:38 Neg mg/dL (Negative) 05/20/19 10:38 Neg (Negative) 05/20/19 10:38 Neg (Negative) 05/20/19 10:38 Neg (Negative) 05/20/19 10:38 < 2.0 mg/dL (<2.0) 05/20/19 10:38 Ur Leukocyte Esterase Tr (Negative) 05/20/19 10:38 1.0 /HPF (0.0-6.0) 05/20/19 10:38 < 1.0 /HPF (0.0-6.0) 05/20/19 10:38 U Epithel Cells (Auto) < 1.0 /HPF (0-13.0) 05/20/19 10:38 Few /HPF 05/20/19 10:38 Urine HCG, Qual Negative (Negative) 05/20/19 10:38 Active Medications - Current Medications Current Medications: Generic Name Dose Route Start Last Admin Trade Name Freq PRN Reason Stop Dose Admin Amoxicillin/Clavulanate Potassium 1 each 05/23/19 16:00 05/24/19 21:50 Augmentin 875 Mg PO 05/29/19 23:59 1 each Q12HR MANAS Administration Doxycycline Hyclate 100 mg 05/23/19 22:00 05/24/19 21:50 Vibramycin PO 05/29/19 23:59 100 mg BID MANAS Administration Folic Acid 1 mg 05/22/19 21:00 05/24/19 10:17 Folvite PO 1 mg QDAY MANAS Administration Hydromorphone HCl 0.5 mg 05/25/19 11:51 05/25/19 14:13 Dilaudid IV 05/25/19 23:52 0.5 mg Q10MIN PRN Administration Pain , Severe (7-10) Sodium Chloride 1,000 mls @ 125 mls/hr 05/24/19 09:00 05/24/19 22:39 Nacl 0.9% 1000 Ml IV 05/26/19 16:26 125 mls/hr DIRECT MANAS Administration Ondansetron HCl 4 mg 05/20/19 21:39 Zofran IV Q4H PRN Nausea And Vomiting Ondansetron HCl 4 mg 05/25/19 11:51 Zofran IV ONCE PRN Nausea And Vomiting Oxycodone HCl 20 mg 05/23/19 22:00 05/25/19 04:28 Oxycontin PO Not Given Q6H MANAS Oxycodone/Acetaminophen 2 tab 05/20/19 21:39 05/21/19 04:45 Percocet 5/325 PO 2 tab Q4H PRN Administration Pain, Moderate (4-6) Potassium Chloride 40 meq 05/21/19 19:00 05/24/19 10:16 K-Dur PO 40 meq QDAY MANAS Administration Promethazine HCl 25 mg 05/24/19 10:00 05/24/19 15:53 Phenergan PO 25 mg Q6H PRN Administration Nausea And Vomiting Rivaroxaban 20 mg 05/22/19 21:00 05/24/19 15:53 Xarelto PO 20 mg QDAY MANAS Administration Protocol Nutrition/Malnutrition Assess - Dietary Evaluation Nutrition/Malnutrition Findings: Nutrition Notes Start: 05/22/19 15:50 Freq: Status: Active Protocol: Document 05/22/19 15:50 RM (Rec: 05/22/19 15:54 RM [id number]) Nutrition Notes Need for Assessment generated from: Low BMI Initial or Follow up Brief Note Other Pertinent Diagnosis UTI, PID Current Diet Regular Labs/Tests Reviewed Pertinent Medications Reviewed Height 5 ft 5 in Weight 46.3 kg Reading Body Weight (kg) 56.81 BMI 16.9 Subjective/Other Information Screened for low BMI. Pt stated that SUPPORT ASSOCIATE her appetite was poor and that she ate 1 meal yesterday. Stated that her appetite is good now and that she eats all of her meals. Stated that she has always been small and that she is actually is 15 lbs heavier now than she usually is. No physical signs of malnutrition. Burn Absent Trauma Absent Nutrition Intervention Revisit per MD consult or patient Sign Off request:
--- NOTE | 2019-05-25 16:19 | Discharge Summary ---
Providers - Providers Date of Admission: 05/24/19 18:28 Date of discharge: 05/25/19 Attending physician: CJ MURGUIA 05/22/19 08:14 Consult to Physician [CONS] Urgent Comment: Consulting Provider: OLIVERIO LOWE Physician Instructions: Reason For Exam: PID 05/23/19 16:55 Consult to Physician [CONS] Routine Comment: Consulting Provider: DOROTHEA MCCORMACK Physician Instructions: Reason For Exam: sickle cell vaso-occlusive crisis Primary care physician: MARQUEZ ASTORGA Hospitalization Reason for admission: other (PID, pelvic pain) Discharge diagnosis: other (s/p iud removal and hysteroscopy ) Condition at discharge: Good Disposition: [id number] TO HOME OR SELFCARE Plan - Discharge Medications Prescriptions: Amoxicillin/K Clav Tab [Augmentin 875 mg] 1 tab PO Q12HR #10 tab Doxycycline Hyclate [Doxycycline Hyclate TAB] 100 mg PO Q12HR #10 tab Nitrofurantoin [place]/M-Cryst [Macrobid CAP] 100 mg PO Q12HR #10 capsule HYDROcodone/APAP 5-325 [[place] 5/325] 1 each PO Q6HR PRN #12 tablet PRN Reason: Pain Phenazopyridine [Pyridium] 100 mg PO TID #8 tab - Provider Discharge Summary Activity: routine, no sex for 6 weeks, no strenuous exercise Diet: routine Instructions: routine Additional instructions: [] Smoking cessation referral if applicable(refer to patient education folder for contact #) [] Refer to [facility] Booklet Call your doctor immediately for: * Fever > 100.5 * Heavy vaginal bleeding ( >1 pad per hour) * Severe persistent headache * Shortness of breath * Reddened, hot, painful area to leg or breast * Drainage or odor from incision. * Keep incision clean and dry at all times and follow doctor's instructions regarding bathing/showering - Follow up plan Follow up: MARQUEZ ASTORGA MD [Primary Care Provider] - 7 Days
[2019-05-25 17:51] VITALS: BP 103/48
--- NOTE | 2019-05-25 18:06 | Post Anesthesia Evaluation ---
- Post Anesthesia Evaluation Patient Participated: Yes Airway Patent: Yes Stable Respiratory Function: Yes Nausea/Vomiting: No Temp > 96.8F: Yes Pain Manageable: Yes Adequeate Hydration: Yes Anesthesia Complications: No
== END 2019-05-25 16:45 | disposition home or self-care (01) | DRG 760 ==
LOC: ED 10:00 → OB 16:24 → OBSVTOIN 05-24 18:28
PROVIDERS: ADMIT Obstetrics & Gynecology; ATTEND Obstetrics & Gynecology
PROC: 0UPD8HZ Removal of Contraceptive Device from Uterus and Cervix, Via Natural or Artificial Opening Endoscopic (ICD-10-PCS; principal; 2019-05-25)
DX: T83.32XA Displacement of intrauterine contraceptive device, initial encounter (principal); D57.00 Hb-SS disease with crisis, unspecified; N39.0 Urinary tract infection, site not specified; D53.9 Nutritional anemia, unspecified; D72.829 Elevated white blood cell count, unspecified; D47.3 Essential (hemorrhagic) thrombocythemia; Y83.8 Other surgical procedures as the cause of abnormal reaction of the patient, or of later complication, without mention of misadventure at the time of the procedure; Z88.1 Allergy status to other antibiotic agents; Z91.013 Allergy to seafood; Z86.711 Personal history of pulmonary embolism; Z79.01 Long term (current) use of anticoagulants; Z79.899 Other long term (current) drug therapy; Z90.49 Acquired absence of other specified parts of digestive tract; Y92.89 Other specified places as the place of occurrence of the external cause
CPT/HCPCS: 36415; 74176; 76856; 80048; 80053; 81001; 81025; 82140; 82607; 82728; 82747; 83550; 83615; 85007; 85025; 85045; 87040; 87591; 88302; 93005; 93010; G0378; J1100; J1170; J1885; J2250; J2270; J2405; J2704; J2765; J3010; J3480; J7030; J7050; J7121; Q0169

== ENCOUNTER 2019-08-12 20:01 | Inpatient (IN) | payer MEDICARE ==
[2019-08-12] MEDS ORDERED: SODIUM CHLORIDE 0.9% 500 ML 500 ML IV ONE (20:56)
[2019-08-12 20:58] LABS: Bilirubin,Urine NEG (Negative); Blood,Urine NEG (Negative); Color,Urine Yellow (Yellow); Mucus,Urine FEW /HPF; Protein,Urine <15 mg/dL mg/dL (Negative)
[2019-08-12] MEDS ORDERED: D5W/0.2% NACL 1,000 ML IV SCH (21:00)
[2019-08-12] MEDS ORDERED: ONDANSETRON 4 MG/2 ML INJ IV ONE (21:04)
[2019-08-12] MEDS ORDERED: diphenhydrAMINE 50 MG/ML VIAL IV ONE ×2 (21:04→23:21)
[2019-08-12] MEDS ORDERED: KETOROLAC 30 MG/1 ML INJ IV ONE (21:04)
[2019-08-12] MEDS ORDERED: HYDROmorphone 1 MG/1 ML INJ IV ONE ×3 (21:04→23:21)
[2019-08-12 21:11] LABS: Hemoglobin 8.6 gm/dl (10.1-14.3); Mean Corpuscular HGB Conc 36 % (30-34); Mean Corpuscular Volume 95 fl (79-97); Platelet Count 424 K/mm3 (140-440); Red Blood Count 2.51 M/mm3 (3.65-5.03)
[2019-08-12 21:13] LABS: Red Cell Distribution Width 20.2 % (13.2-15.2)
[2019-08-12 21:31] LABS: BUN/Creatinine Ratio 23; Blood Urea Nitrogen 9 mg/dL (7-17); Calcium 9.1 mg/dL (8.4-10.2); Hemolysis Index 37
[2019-08-12 21:35] LABS: Albumin 4.4 g/dL (3.9-5); Bilirubin,Direct 0.3 mg/dL (0-0.2)
--- NOTE | 2019-08-12 23:22 | Emergency Department Report ---
ED General Adult HPI - General Chief complaint: Abdominal Pain Stated complaint: ABD PAIN/HEADACHE Time Seen by Provider: 08/12/19 20:41 Source: patient, EMS, old records reviewed Mode of arrival: Wheelchair Limitations: No Limitations - History of Present Illness Initial comments: 24 year old female the past medical history of sickle cell disease ss with ? thalasemia, pulmonary embolism currently on xarelto presents to the hospital complaining of pain. Patient has had a frontal headache for the last 2 weeks. It is constant but fluctuates in intensity. Patient also complains of some left lower quadrant abdominal pain and lower back pain. Patient states her back pain feels like sickle cell disease. Patient had nausea and vomiting 2 tonight. Mild diarrhea and vaginal spotting reported. No dysuria, hematochezia, hematemesis, or melena, fever, focal numbness, focal weakness, blurred vision, or neck pain. patient takes Tylenol with codeine for pain and does not have a port. Patient's director cost is with the [facility]. Severity scale (0 -10): 7 - Related Data Home Medications Medication Instructions Recorded Confirmed Last Taken Xarelto 20 mg PO QDAY 05/25/19 05/25/19 1 Day Ago ~05/24/19 20 mg Previous Rx's Medication Instructions Recorded Last Taken Type Nitrofurantoin [place]/M-[place]ryst 100 mg PO Q12HR #10 capsule 05/20/19 Unknown Rx [Macrobid CAP] Phenazopyridine [Pyridium] 100 mg PO TID #8 tab 05/20/19 Unknown Rx Amoxicillin/K Clav Tab [Augmentin 1 tab PO Q12HR #10 tab 05/24/19 Unknown Rx 875 mg] Doxycycline Hyclate [Doxycycline 100 mg PO Q12HR #10 tab 05/24/19 Unknown Rx Hyclate TAB] HYDROcodone/APAP 5-325 [[place] 1 each PO Q6HR PRN #12 tablet 05/25/19 Unknown Rx 5/325] Allergies Allergy/AdvReac Type Severity Reaction Status Date / Time cefepime Allergy Hives Verified 05/20/19 10:21 shellfish derived Allergy Swelling Verified 05/20/19 10:21 vancomycin Allergy Hives Verified 05/20/19 10:21 ED Review of Systems ROS: Stated complaint: ABD PAIN/HEADACHE Other details as noted in HPI Comment: All other systems reviewed and negative ED Past Medical Hx - Past Medical History Previous Medical History?: Yes Hx Pulmonary Embolism: Yes Hx Sickle Cell Disease: Yes - Surgical History Past Surgical History?: Yes Hx Cholecystectomy: Yes - Social History Smoking Status: Never Smoker Substance Use Type: None - Medications Home Medications: Home Medications Medication Instructions Recorded Confirmed Last Taken Type Nitrofurantoin [place]/M-[place] 100 mg PO Q12HR #10 capsule 05/20/19 Unknown Rx [Macrobid CAP] Phenazopyridine [Pyridium] 100 mg PO TID #8 tab 05/20/19 Unknown Rx Amoxicillin/K Clav Tab [Augmentin 1 tab PO Q12HR #10 tab 05/24/19 Unknown Rx 875 mg] Doxycycline Hyclate [Doxycycline 100 mg PO Q12HR #10 tab 05/24/19 Unknown Rx Hyclate TAB] HYDROcodone/APAP 5-325 [[place] 1 each PO Q6HR PRN #12 tablet 05/25/19 Unknown Rx 5/325] Xarelto 20 mg PO QDAY 05/25/19 05/25/19 1 Day Ago History ~05/24/19 20 mg ED Physical Exam - General Limitations: No Limitations - Other Other exam information: General: No acute distress Head: Atraumatic Eyes: normal appearance ENT: Moist mucous membranes Neck: Normal appearance, no midline tenderness Chest: Clear to auscultation bilaterally CV: Regular rate and rhythm Abdomen: Soft, normal bowel sounds, lower quadrant tenderness, nondistended, no rebound or guarding Back: Normal inspection, nontender to palpation Extremity: Normal inspection infection, full range of motion Neuro: Alert O x 3, no facial asymmetry, speech clear, no gross motor sensory deficit Psych: Appropriate behavior Skin: No rash ED Course Vital Signs 08/12/19 08/12/19 08/12/19 20:12 20:15 21:00 Temperature 98.8 F Pulse Rate 94 H Respiratory 18 Rate Blood Pressure 91/45 99/58 Blood Pressure 94/40 [Right] O2 Sat by Pulse 94 Oximetry 08/12/19 08/12/19 08/12/19 21:15 21:30 21:45 Temperature Pulse Rate 70 79 73 Respiratory 13 13 18 Rate Blood Pressure 107/64 107/63 100/61 Blood Pressure [Right] O2 Sat by Pulse 95 95 93 Oximetry 08/12/19 22:00 Temperature Pulse Rate 72 Respiratory 15 Rate Blood Pressure 108/68 Blood Pressure [Right] O2 Sat by Pulse Oximetry ED Medical Decision Making - Lab Data Result diagrams: 08/12/19 20:51 08/12/19 20:51 Lab Results 08/12/19 08/12/19 08/12/19 Range/Units 20:41 20:51 20:51 WBC 15.3 H (4.5-11.0) K/mm3 RBC 2.51 L (3.65-5.03) M/mm3 Hgb 8.6 L (10.1-14.3) gm/dl Hct 24.0 L (30.3-42.9) % MCV 95 (79-97) fl MCH 34 H (28-32) pg MCHC 36 H (30-34) % RDW 20.2 H (13.2-15.2) % Plt Count 424 (140-440) K/mm3 Percent Retic 4.74 H (0.78-2.58) % Sodium 139 (137-145) mmol/L Potassium 3.8 (3.6-5.0) mmol/L Chloride 105.7 (98-107) mmol/L Carbon Dioxide 21 L (22-30) mmol/L Anion Gap 16 mmol/L BUN 9 (7-17) mg/dL Creatinine 0.4 L (0.7-1.2) mg/dL Estimated GFR > 60 ml/min BUN/Creatinine Ratio 23 % Glucose 101 H (65-100) mg/dL Calcium 9.1 (8.4-10.2) mg/dL Total Bilirubin (0.1-1.2) mg/dL Direct Bilirubin (0-0.2) mg/dL Indirect Bilirubin mg/dL AST (5-40) units/L ALT (7-56) units/L Alkaline Phosphatase (35-129) units/L Total Protein (6.3-8.2) g/dL Albumin (3.9-5) g/dL Albumin/Globulin Ratio % HCG, Quant (0-4) mIU/mL Urine Color Yellow (Yellow) Urine Turbidity Clear (Clear) Urine pH 6.0 (5.0-7.0) Ur Specific [place] 1.015 (1.003-1.030) Urine Protein <15 mg/dl (Negative) mg/dL Urine Glucose (UA) Neg (Negative) mg/dL Urine Ketones Neg (Negative) mg/dL Urine Blood Neg (Negative) Urine Nitrite Neg (Negative) Urine Bilirubin Neg (Negative) Urine Urobilinogen 2.0 (<2.0) mg/dL Ur Leukocyte Esterase Tr (Negative) Urine WBC (Auto) 3.0 (0.0-6.0) /HPF Urine RBC (Auto) 2.0 (0.0-6.0) /HPF U Epithel Cells (Auto) 4.0 (0-13.0) /HPF Urine Mucus Few /HPF 08/12/19 08/12/19 Range/Units 20:51 20:51 WBC (4.5-11.0) K/mm3 RBC (3.65-5.03) M/mm3 Hgb (10.1-14.3) gm/dl Hct (30.3-42.9) % MCV (79-97) fl MCH (28-32) pg MCHC (30-34) % RDW (13.2-15.2) % Plt Count (140-440) K/mm3 Percent Retic (0.78-2.58) % Sodium (137-145) mmol/L Potassium (3.6-5.0) mmol/L Chloride (98-107) mmol/L Carbon Dioxide (22-30) mmol/L Anion Gap mmol/L BUN (7-17) mg/dL Creatinine (0.7-1.2) mg/dL Estimated GFR ml/min BUN/Creatinine Ratio % Glucose (65-100) mg/dL Calcium (8.4-10.2) mg/dL Total Bilirubin 1.40 H (0.1-1.2) mg/dL Direct Bilirubin 0.3 H (0-0.2) mg/dL Indirect Bilirubin 1.1 mg/dL AST 22 (5-40) units/L ALT 12 (7-56) units/L Alkaline Phosphatase 44 (35-129) units/L Total Protein 7.3 (6.3-8.2) g/dL Albumin 4.4 (3.9-5) g/dL Albumin/Globulin Ratio 1.5 % HCG, Quant < 2 (0-4) mIU/mL Urine Color (Yellow) Urine Turbidity (Clear) Urine pH (5.0-7.0) Ur Specific [place] (1.003-1.030) Urine Protein (Negative) mg/dL Urine Glucose (UA) (Negative) mg/dL Urine Ketones (Negative) mg/dL Urine Blood (Negative) Urine Nitrite (Negative) Urine Bilirubin (Negative) Urine Urobilinogen (<2.0) mg/dL Ur Leukocyte Esterase (Negative) Urine WBC (Auto) (0.0-6.0) /HPF Urine RBC (Auto) (0.0-6.0) /HPF U Epithel Cells (Auto) (0-13.0) /HPF Urine Mucus /HPF - Radiology Data Radiology results: report reviewed CT dated 05/20/19 FINDINGS: LOWER CHEST: No significant abnormality. LIVER: No significant abnormality. GALLBLADDER: Surgically absent. BILE DUCTS: No significant abnormality. PANCREAS: No significant abnormality. SPLEEN: Absent versus very small. ADRENALS: No significant abnormality. RIGHT KIDNEY and URETER: No significant abnormality. LEFT KIDNEY and URETER: No significant abnormality. STOMACH and SMALL BOWEL: Stomach is moderately distended with food material. No small bowel abnormality. COLON: No significant abnormality. APPENDIX: No significant abnormality. PERITONEUM: No free fluid. No free air. No fluid collection. LYMPH NODES: No significant adenopathy. AORTA and ARTERIES: No significant abnormality. IVC and VEINS: No significant abnormality. URINARY BLADDER: No significant abnormality. REPRODUCTIVE ORGANS: Interval removal of intrauterine device. ADDITIONAL FINDINGS: None. SKELETAL SYSTEM: No significant abnormality. IMPRESSION: 1. No inflammatory process or bowel obstruction. No acute findings. 2. Interval removal of IUD. CT HEAD WITHOUT CONTRAST INDICATION / CLINICAL INFORMATION: boyd x 1 week on Xarelto, sickle cell. TECHNIQUE: All CT scans at this location are performed using CT dose reduction for ALARA by means of automated exposure control. COMPARISON: None available. FINDINGS: HEMORRHAGE: None. EXTRA-AXIAL SPACES: Normal in size and morphology for the patient's age. VENTRICULAR SYSTEM: Normal in size and morphology for the patient's age. CEREBRAL PARENCHYMA: No significant abnormality. No acute territorial infarct. MIDLINE SHIFT OR HERNIATION: None. CEREBELLUM / BRAINSTEM: No significant abnormality. ORBITS: Normal as visualized. SOFT TISSUES of HEAD: No significant abnormality. CALVARIUM: No significant abnormality. PARANASAL SINUSES / MASTOID AIR CELLS: Normal as visualized. ADDITIONAL FINDINGS: None. IMPRESSION: 1. No acute intracranial abnormality. - Medical Decision Making pt with sickle cell and continued pain despite ed tx no acute infection identified. He had and CT of the pelvis unremarkable. P atient be admitted to the hospital for further pain control. - Differential Diagnosis , UTI, ovarian cyst, sickle cell crisis, diverticulitis, ich,heada Critical Care Time: No Critical care attestation.: If time is entered above; I have spent that time in minutes in the direct care of this critically ill patient, excluding procedure time. ED Disposition Clinical Impression: Sickle cell anemia with pain, Headache, LLQ abdominal pain, Hx of pulmonary embolus, Current use of termite exterminator anticoagulation Disposition: OP ADMIT IP TO THIS HOSP Is pt being admited?: Yes Condition: Stable Time of Disposition: 00:16 (Dr [facility] hosp)
--- NOTE | 2019-08-12 23:42 | Cat Scan Report ---
CT ABDOMEN AND PELVIS WITHOUT CONTRAST INDICATION / CLINICAL INFORMATION: Left lower quadrant pain. Nausea, vomiting, diarrhea. TECHNIQUE: Axial CT images were obtained through the abdomen and pelvis without IV contrast. All CT scans at [facility] location are performed using CT dose reduction for ALARA by means of automated exposure control. COMPARISON: CT dated 05/20/19 FINDINGS: LOWER CHEST: No significant abnormality. LIVER: No significant abnormality. GALLBLADDER: Surgically absent. BILE DUCTS: No significant abnormality. PANCREAS: No significant abnormality. SPLEEN: Absent versus very small. ADRENALS: No significant abnormality. RIGHT KIDNEY and URETER: No significant abnormality. LEFT KIDNEY and URETER: No significant abnormality. STOMACH and SMALL BOWEL: Stomach is moderately distended with food material. No small bowel abnormali ty. COLON: No significant abnormality. APPENDIX: No significant abnormality. PERITONEUM: No free fluid. No free air. No fluid collection. LYMPH NODES: No significant adenopathy. AORTA and ARTERIES: No significant abnormality. IVC and VEINS: No significant abnormality. URINARY BLADDER: No significant abnormality. REPRODUCTIVE ORGANS: Interval removal of intrauterine device. ADDITIONAL FINDINGS: None. SKELETAL SYSTEM: No significant abnormality. IMPRESSION: 1. No inflammatory process or bowel obstruction. No acute findings. 2. Interval removal of IUD. Signer Name: Kamala Amato MD Signed: 08/12/2019 11:38 PM Workstation Name: [id number]
--- NOTE | 2019-08-12 23:52 | Cat Scan Report ---
CT HEAD WITHOUT CONTRAST INDICATION / CLINICAL INFORMATION: boyd x 1 week on Xarelto, sickle cell. TECHNIQUE: All CT scans at this location are performed using CT dose reduction for ALARA by means of automated e xposure control. COMPARISON: None available. FINDINGS: HEMORRHAGE: None. EXTRA-AXIAL SPACES: Normal in size and morphology for the patient's age. VENTRICULAR SYSTEM: Normal in size and morphology for the patient's age. CEREBRAL PARENCHYMA: No significant abnormality. No acute territorial infarct. MIDLINE SHIFT OR HERNIATION: None. CEREBELLUM / BRAINSTEM: No significant abnormality. ORBITS: Normal as visualized. SOFT TISSUES of HEAD: No significant abnormality. CALVARIUM: No significant abnormality. PARANASAL SINUSES / MASTOID AIR CELLS: Normal as visualized. ADDITIONAL FINDINGS: None. IMPRESSION: 1. No acute intracranial abnormality. Signer Name: Kamala Amato MD Signed: 08/12/2019 11:48 PM Workstation Name: [id number]
[2019-08-13] MEDS ORDERED: diphenhydrAMINE 50 MG/ML VIAL IV PRN (00:45)
[2019-08-13] MEDS ORDERED: MAGNESIUM HYDROXIDE (MOM) ORAL LIQD UDC PO PRN (00:45)
[2019-08-13] MEDS ORDERED: D5W/0.45% NACL 1,000 ML IV SCH (01:00)
[2019-08-13] MEDS ORDERED: diphenhydrAMINE 25 MG CAP PO PRN (03:45)
[2019-08-13] MEDS: HYDROmorphone 2 MG/1 ML INJ IV PRN ×7 (03:48→22:57)
[2019-08-13] MEDS: diphenhydrAMINE 25 MG/10 ML ORAL LIQUID PO PRN ×2 (04:31→11:11)
--- NOTE | 2019-08-13 06:14 | History and Physical Report ---
History of Present Illness Date of examination: 08/13/19 Date of admission: 08/13/19 00:45 Chief complaint: Headache and generalized body aches and pain. History of present illness: Patient is a 24-year-old female with known history of sickle cell disease and also history of pulmonary embolism on Xarelto presented to the emergency room today complaining of headache generalized body aches and pain. She has also complaining of abdominal pain and back pain. She denies any fever no chills no nausea vomiting. 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 She has been compliant with her medications and she takes Tylenol with codeine for pain relief. Patient denies any cough, no shortness of breath, no fever or chills. Past History Past Medical History: other (IUD removal) Past Surgical History: cholecystectomy Social history: no significant social history Family history: CAD, hypertension, other (Sickle cell trait) Medications and Allergies Allergies Allergy/AdvReac Type Severity Reaction Status Date / Time cefepime Allergy Hives Verified 05/20/19 10:21 shellfish derived Allergy Swelling Verified 05/20/19 10:21 vancomycin Allergy Hives Verified 05/20/19 10:21 Home Medications Medication Instructions Recorded Confirmed Last Taken Type Xarelto 20 mg PO QDAY 05/25/19 08/13/19 1 Day Ago History ~05/24/19 20 mg Folic Acid [Folvite] 1 mg PO QDAY 08/13/19 08/13/19 Unknown History Ondansetron [Zofran ODT TAB] 1 tab PO TID PRN 08/13/19 08/13/19 Unknown History Active Meds: Active Medications Bisacodyl (Dulcolax) 10 mg CO QDAY PRN PRN Reason: Constipation unrelieved by MOM Diphenhydramine HCl (Banophen) 25 mg PO Q6H PRN PRN Reason: Itching Last Admin: 08/13/19 04:31 Dose: 25 mg Documented by: Folic Acid (Folvite) 1 mg PO QDAY MANAS Hydromorphone HCl (Dilaudid) 2 mg IV Q2H PRN PRN Reason: Pain , Severe (7-10) Stop: 08/14/19 00:44 Last Admin: 08/13/19 03:48 Dose: 2 mg Documented by: Sodium Chloride 38.5 meq/ (Dextrose) 1,009.625 mls @ 250 mls/hr IV DIRECT MANAS Dextrose/Sodium Chloride (D5/0.45ns) 1,000 mls @ 150 mls/hr IV DIRECT MANAS Stop: 08/13/19 07:39 Magnesium Hydroxide (Milk Of Magnesia) 30 ml PO Q4H PRN PRN Reason: Constipation Multivitamins (Theragran Tab) 1 each PO QDAY MANAS Ondansetron HCl (Zofran) 4 mg IV Q8H PRN PRN Reason: Nausea And Vomiting Senna (Senokot) 17.2 mg PO QHS MANAS Exam - Constitutional Vitals: Temp Pulse Resp BP Pulse Ox 98.8 F 82 20 94/40 97 08/13/19 02:30 08/13/19 02:30 08/13/19 02:30 08/13/19 02:30 08/13/19 02:30 - EENT Eyes: Present: PERRL, EOM intact ENT: hearing intact, clear oral mucosa, dentition normal - Neck Neck: Present: supple, normal ROM - Respiratory Respiratory effort: normal Respiratory: bilateral: CTA - Cardiovascular Rhythm: regular Heart Sounds: Present: S1 & S2 - Extremities Extremities: no ischemia, pulses intact Peripheral Pulses: within normal limits - Abdominal General gastrointestinal: Present: soft, non-tender, tender (Mild tenderness in the left lower quadrant no rebound tenderness) - Integumentary Integumentary: Present: clear, warm, dry - Musculoskeletal Musculoskeletal: strength equal bilaterally - Psychiatric Psychiatric: appropriate mood/affect, intact judgment & insight - Neurologic Neurologic: CNII-XII intact, moves all extremities Results - Labs CBC & Chem 7: 08/12/19 20:51 08/12/19 20:51 Labs: Abnormal lab results 08/12/19 08/12/19 08/12/19 Range/Units 20:51 20:51 20:51 WBC 15.3 H (4.5-11.0) K/mm3 RBC 2.51 L (3.65-5.03) M/mm3 Hgb 8.6 L (10.1-14.3) gm/dl Hct 24.0 L (30.3-42.9) % MCH 34 H (28-32) pg MCHC 36 H (30-34) % RDW 20.2 H (13.2-15.2) % Percent Retic 4.74 H (0.78-2.58) % Carbon Dioxide 21 L (22-30) mmol/L Creatinine 0.4 L (0.7-1.2) mg/dL Glucose 101 H (65-100) mg/dL Total Bilirubin 1.40 H (0.1-1.2) mg/dL Direct Bilirubin 0.3 H (0-0.2) mg/dL Assessment and Plan - Patient Problems (1) Sickle cell anemia with pain Current Visit: Yes Status: Acute Plan to address problem: Patient admitted into the medical floor will place on IV fluid and analgesic medication. Will monitor CBC and also monitor reticulocyte count. Hemoglobin remains stable. (2) Headache Current Visit: Yes Status: Acute Plan to address problem: Will place on analgesic medication as needed (3) Hx of pulmonary embolus Current Visit: Yes Status: Acute Plan to address problem: Patient has been on anticoagulation with Xarelto. We will resume medications once reconciled.
[2019-08-13] MEDS: SODIUM CHLORIDE 23.4% 38.5 MEQ in DEXTROSE 5% IN WATER 1,000 ML IV SCH ×3 (08:25→19:04)
[2019-08-13] MEDS: FOLIC ACID 1 MG TAB PO SCH (09:55)
[2019-08-13] MEDS: MULTIVITAMINS ,THERAPEUTIC TAB PO SCH (09:56)
--- NOTE | 2019-08-13 14:49 | Event Note ---
Date: 08/13/19 Patient was admitted for sickle cell crisis Monitor reticulocyte count Pain management Inpatient
[2019-08-13] MEDS: ONDANSETRON 4 MG/2 ML INJ IV PRN (15:15)
[2019-08-13] MEDS: diphenhydrAMINE 25 MG CAP PO PRN ×2 (17:14→22:57)
[2019-08-13] MEDS: SENNOSIDES 8.6 MG TAB PO SCH (22:57)
[2019-08-14] MEDS ORDERED: oxyCODONE /ACETAMINOPHEN 5-325MG TAB PO PRN (02:14)
[2019-08-14] MEDS: SODIUM CHLORIDE 23.4% 38.5 MEQ in DEXTROSE 5% IN WATER 1,000 ML IV SCH ×2 (04:10→08:39)
[2019-08-14 06:01] LABS: Basophils # (Auto) 0.1 K/mm3 (0.0-0.1); Basophils % (Auto) 1.3 % (0.0-1.8); Eosinophils # (Auto) 0.8 K/mm3 (0.0-0.4); Eosinophils % (Auto) 7.7 % (0.0-4.3); Hemoglobin 7.9 gm/dl (10.1-14.3); Lymphocytes # (Auto) 2.3 K/mm3 (1.2-5.4); Mean Corpuscular HGB Conc 36 % (30-34); Mean Corpuscular Volume 95 fl (79-97); Monocytes # (Auto) 0.9 K/mm3 (0.0-0.8); Monocytes % (Auto) 8.5 % (0.0-7.3); Platelet Count 370 K/mm3 (140-440); Red Blood Count 2.32 M/mm3 (3.65-5.03); Red Cell Distribution Width 19.8 % (13.2-15.2)
[2019-08-14] MEDS: HYDROmorphone 1 MG/1 ML INJ IV PRN ×4 (08:41→20:41)
[2019-08-14] MEDS: diphenhydrAMINE 25 MG CAP PO PRN ×3 (08:41→23:34)
[2019-08-14] MEDS: FOLIC ACID 1 MG TAB PO SCH (09:52)
[2019-08-14] MEDS: MULTIVITAMINS ,THERAPEUTIC TAB PO SCH (09:53)
--- NOTE | 2019-08-14 10:27 | Progress Note ---
Assessment and Plan Assessment and plan: Sickle cell vaso-occlusive crisis with pain Patient admitted into the medical floor will place on IV fluid and analgesic medication. Will monitor CBC and also monitor reticulocyte count. Hemoglobin remains stable. Pain uncontrolled Add sceduled long acting narcotic Consult Hematology Headache Cill place on analgesic medication as needed Hx of pulmonary embolus Patient has been on anticoagulation with Xarelto. We will resume Xarelto today. History Interval history: Headache Abdominal pain generalized body pain Hospitalist Physical - Physical exam Narrative exam: Gen: Not in acute distress, lying in bed HEENT: Normocephalic, atraumatic Neck: supple, no JVD Heart: S1 and S2 reg, no murmurs, rubs or gallop Lungs: Clear to auscultation, no rhonchi, no wheeze Abd: soft, tender LLQ, no rebound, non distended, normal BS, Ext: No edema, no clubbing, no cyanosis Neuro: Awake, alert, oriented X 3, anxious, no focal neurological signs - Constitutional Vitals: Temp Pulse Resp BP Pulse Ox 97.0 F L 74 16 103/57 96 08/14/19 05:42 08/14/19 05:42 08/14/19 05:42 08/14/19 05:42 08/14/19 05:42 Results - Labs CBC & Chem 7: 08/14/19 04:58 08/12/19 20:51 Labs: Laboratory Last Values WBC 10.5 K/mm3 (4.5-11.0) 08/14/19 04:58 RBC 2.32 M/mm3 (3.65-5.03) L 08/14/19 04:58 Hgb 7.9 gm/dl (10.1-14.3) L 08/14/19 04:58 Hct 22.0 % (30.3-42.9) L 08/14/19 04:58 MCV 95 fl (79-97) 08/14/19 04:58 MCH 34 pg (28-32) H 08/14/19 04:58 MCHC 36 % (30-34) H 08/14/19 04:58 RDW 19.8 % (13.2-15.2) H 08/14/19 04:58 Plt Count 370 K/mm3 (140-440) 08/14/19 04:58 Lymph % (Auto) 22.0 % (13.4-35.0) 08/14/19 04:58 [place] % (Auto) 8.5 % (0.0-7.3) H 08/14/19 04:58 Eos % (Auto) 7.7 % (0.0-4.3) H 08/14/19 04:58 Baso % (Auto) 1.3 % (0.0-1.8) 08/14/19 04:58 Lymph # 2.3 K/mm3 (1.2-5.4) 08/14/19 04:58 [place] # 0.9 K/mm3 (0.0-0.8) H 08/14/19 04:58 Eos # 0.8 K/mm3 (0.0-0.4) H 08/14/19 04:58 Baso # 0.1 K/mm3 (0.0-0.1) 08/14/19 04:58 Seg Neutrophils % 60.5 % (40.0-70.0) 08/14/19 04:58 Seg Neutrophils # 6.3 K/mm3 (1.8-7.7) 08/14/19 04:58 Percent Retic 4.71 % (0.78-2.58) H 08/14/19 04:58 Sodium 139 mmol/L (137-145) 08/12/19 20:51 Potassium 3.8 mmol/L (3.6-5.0) 08/12/19 20:51 Chloride 105.7 mmol/L (98-107) 08/12/19 20:51 Carbon Dioxide 21 mmol/L (22-30) L 08/12/19 20:51 Anion Gap 16 mmol/L 08/12/19 20:51 BUN 9 mg/dL (7-17) 08/12/19 20:51 Creatinine 0.4 mg/dL (0.7-1.2) L 08/12/19 20:51 Estimated GFR > 60 ml/min 08/12/19 20:51 BUN/Creatinine Ratio 23 % 08/12/19 20:51 Glucose 101 mg/dL (65-100) H 08/12/19 20:51 Calcium 9.1 mg/dL (8.4-10.2) 08/12/19 20:51 Total Bilirubin 1.40 mg/dL (0.1-1.2) H 08/12/19 20:51 Direct Bilirubin 0.3 mg/dL (0-0.2) H 08/12/19 20:51 Indirect Bilirubin 1.1 mg/dL 08/12/19 20:51 AST 22 units/L (5-40) 08/12/19 20:51 ALT 12 units/L (7-56) 08/12/19 20:51 Alkaline Phosphatase 44 units/L (35-129) 08/12/19 20:51 Lactate Dehydrogenase 230 units/L (91-180) H 08/14/19 04:58 Total Protein 7.3 g/dL (6.3-8.2) 08/12/19 20:51 Albumin 4.4 g/dL (3.9-5) 08/12/19 20:51 Albumin/Globulin Ratio 1.5 % 08/12/19 20:51 HCG, Quant < 2 mIU/mL (0-4) 08/12/19 20:51 Urine Color Yellow (Yellow) 08/12/19 20:41 Urine Turbidity Clear (Clear) 08/12/19 20:41 Urine pH 6.0 (5.0-7.0) 08/12/19 20:41 Ur Specific [place] 1.015 (1.003-1.030) 08/12/19 20:41 Urine Protein <15 mg/dl mg/dL (Negative) 08/12/19 20:41 Urine Glucose (UA) Neg mg/dL (Negative) 08/12/19 20:41 Urine Ketones Neg mg/dL (Negative) 08/12/19 20:41 Urine Blood Neg (Negative) 08/12/19 20:41 Urine Nitrite Neg (Negative) 08/12/19 20:41 Urine Bilirubin Neg (Negative) 08/12/19 20:41 Urine Urobilinogen 2.0 mg/dL (<2.0) 08/12/19 20:41 Ur Leukocyte Esterase Tr (Negative) 08/12/19 20:41 Urine WBC (Auto) 3.0 /HPF (0.0-6.0) 08/12/19 20:41 Urine RBC (Auto) 2.0 /HPF (0.0-6.0) 08/12/19 20:41 U Epithel Cells (Auto) 4.0 /HPF (0-13.0) 08/12/19 20:41 Urine Mucus Few /HPF 08/12/19 20:41 Active Medications - Current Medications Current Medications: Generic Name Dose Route Start Last Admin Trade Name Freq PRN Reason Stop Dose Admin Bisacodyl 10 mg 08/13/19 00:45 Dulcolax [place] QDAY PRN Constipation unrelieved by MOM Diphenhydramine HCl 25 mg 08/13/19 16:29 08/14/19 08:41 Benadryl PO 25 mg Q6H PRN Administration Itching Folic Acid 1 mg 08/13/19 10:00 08/14/19 09:52 Folvite PO 1 mg QDAY MANAS Administration Hydromorphone HCl 1 mg 08/14/19 02:14 08/14/19 08:41 Dilaudid IV 1 mg Q4H PRN Administration Pain , Severe (7-10) Sodium Chloride 38.5 meq/ 1,009.625 mls @ 250 mls/hr 08/12/19 21:00 08/14/19 08:39 Dextrose IV 250 mls/hr DIRECT MANAS Administration Magnesium Hydroxide 30 ml 08/13/19 00:45 Milk Of Magnesia PO Q4H PRN Constipation Morphine Sulfate 30 mg 08/14/19 14:00 Ms Contin Er PO Q8HR PENDING SALE TO [facility] Multivitamins 1 each 08/13/19 10:00 08/14/19 09:53 Theragran Tab PO 1 each QDAY MANAS Administration Ondansetron HCl 4 mg 08/13/19 00:45 08/13/19 15:15 Zofran IV 4 mg Q8H PRN Administration Nausea And Vomiting Oxycodone/Acetaminophen 1 tab 08/14/19 02:14 Percocet 5/325 PO Q4H PRN Pain, Moderate (4-6) Senna 17.2 mg 08/13/19 22:00 08/13/19 22:57 Senokot PO Not Given QHS PENDING SALE TO [facility] Nutrition/Malnutrition Assess - Dietary Evaluation Nutrition/Malnutrition Findings: Nutrition Notes Start: 08/13/19 15:40 Freq: Status: Active Protocol: Document 08/13/19 15:40 RM (Rec: 08/13/19 15:52 RM [id number]) Nutrition Notes Need for Assessment generated from: MD Order Initial or Follow up Assessment Other Pertinent Diagnosis Sickle cell, Abdominal pain, Headache Current Diet Regular Labs/Tests Reviewed Pertinent Medications Reviewed Height 5 ft 5 in Weight 50 kg Usual Body Weight 52.27 kg [place] Body Weight (kg) 56.81 BMI 18.3 Weight change and time frame 4.34% X 3 weeks Subjective/Other Information Screened for malnutrition and low BMI. 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 Stated that her appetite is poor now and that she has not eaten today. Admitted to N/V. Stated UBW was 115 lbs on Jul 22 and that she she has always been small. No physical signs of malnutrition. Burn Absent Trauma Absent Minimum of two criteria No #1 Nutrition Diagnosis Inadequate oral intake Etiology decreased appetite As Evidenced by Signs and Symptoms pt statement that she has not eaten today Is patient on ventilator? No Is Patient Ambulatory and/or Out of Bed Yes REE-([facility]-ambulatory/OOB) [ 1626.144 NUTR.MSJOOB] Kcal/Kg value to use for calculation 43 Approximate Energy Requirements Using 2150 kcal/Kg Calculation Used for Recommendations Kcal/kg Additional Notes Protein Needs: 40-50g (0.8-1g/ kg) Fluid Needs: 1 ml/kcal Nutrition Intervention Change Diet Order: Continue current Add Supplement/Snack (indicate name/kcal Ensure Enlive [place], /protein ) Vanilla BID Provides kCal: 700 Provides Protein (gm) 40 Goal #1 Meet at least 75% of calorie and protein needs via PO and ONS intakes Anticipated Discharge Needs: Regular diet Follow-Up By: 08/15/19 Additional Comments Follow for PO and ONS intakes
[2019-08-14] MEDS: ONDANSETRON 4 MG/2 ML INJ IV PRN (11:40)
[2019-08-14] MEDS: D5W/0.2% NACL 1,000 ML IV SCH ×3 (12:41→20:43)
[2019-08-14] MEDS: MORPHINE 15 MG ER TAB PO SCH ×2 (14:26→21:59)
[2019-08-14] MEDS: SENNOSIDES 8.6 MG TAB PO SCH (21:59)
[2019-08-14] MEDS ORDERED: ACETAMINOPHEN 325 MG TAB PO PRN (23:08)
[2019-08-14] MEDS: RIVAROXABAN 20 MG TAB PO SCH (23:35)
[2019-08-15] MEDS ORDERED: IBUPROFEN 800 MG TAB PO PRN
[2019-08-15] MEDS: D5W/0.2% NACL 1,000 ML IV SCH ×2 (00:53→05:06)
[2019-08-15] MEDS: HYDROmorphone 1 MG/1 ML INJ IV PRN ×4 (00:53→13:23)
[2019-08-15] MEDS: MORPHINE 15 MG ER TAB PO SCH ×2 (06:12→13:23)
[2019-08-15] MEDS: diphenhydrAMINE 25 MG CAP PO PRN (06:14)
[2019-08-15 06:29] LABS: Basophils # (Auto) 0.1 K/mm3 (0.0-0.1); Basophils % (Auto) 0.8 % (0.0-1.8); Eosinophils # (Auto) 0.8 K/mm3 (0.0-0.4); Hematocrit 23.4 % (30.3-42.9); Hemoglobin 8.2 gm/dl (10.1-14.3); Lymphocytes % (Auto) 31.2 % (13.4-35.0); Mean Corpuscular HGB Conc 35 % (30-34); Mean Corpuscular Volume 97 fl (79-97); Monocytes # (Auto) 1.1 K/mm3 (0.0-0.8); Monocytes % (Auto) 11.3 % (0.0-7.3); Platelet Count 356 K/mm3 (140-440)
[2019-08-15 06:35] LABS: Red Cell Distribution Width 20.3 % (13.2-15.2)
[2019-08-15] MEDS ORDERED: HYDROmorphone/NS 6 MG/30 ML PCA INJ IV SCH (09:00)
[2019-08-15] MEDS: diphenhydrAMINE 50 MG/ML VIAL IV PRN ×4 (10:06→21:51)
[2019-08-15] MEDS: SODIUM CHLORIDE 0.9% 1000 ML 1,000 ML IV SCH ×2 (10:06→21:50)
[2019-08-15] MEDS: FOLIC ACID 1 MG TAB PO SCH (10:07)
[2019-08-15] MEDS: MULTIVITAMINS ,THERAPEUTIC TAB PO SCH (10:07)
[2019-08-15] MEDS: RIVAROXABAN 20 MG TAB PO SCH (10:08)
[2019-08-15] MEDS: HYDROmorphone 2 MG/1 ML INJ IV PRN ×3 (15:15→21:51)
--- NOTE | 2019-08-15 15:22 | Progress Note ---
Assessment and Plan Assessment and plan: Sickle cell vaso-occlusive crisis with pain Patient admitted into the medical floor will place on IV fluid and analgesic medication. Will monitor CBC and also monitor reticulocyte count. Hemoglobin remains stable. Pain uncontrolled Added shceduled long acting narcotic - MS Contin but patient says she does not want it She was seen by Dr. Sloan today, PRINT SHOP CHIEF CLERK Dilaudid pump ordered but she declined she is requesting more Dilaudid will increase Dilaudid to 2mg iv q 4h Headache On narcotics Hx of pulmonary embolus Patient has been on anticoagulation with Xarelto. Continue Xarelto. History Interval history: Headache Abdominal pain generalized body pain Patient says pain mesds not enough Asking for more Dilaudid Declines PRINT SHOP CHIEF CLERK pump ordered by Dr. Sloan Hospitalist Physical - Physical exam Narrative exam: Gen: Not in acute distress, lying in bed HEENT: Normocephalic, atraumatic Neck: supple, no JVD Heart: S1 and S2 reg, no murmurs, rubs or gallop Lungs: Clear to auscultation, no rhonchi, no wheeze Abd: soft, tender LLQ, no rebound, non distended, normal BS, Ext: No edema, no clubbing, no cyanosis Neuro: Awake, alert, oriented X 3, anxious, no focal neurological signs - Constitutional Vitals: Temp Pulse Resp BP Pulse Ox 97.1 F L 78 18 82/41 93 08/15/19 12:03 08/15/19 12:03 08/15/19 12:03 08/15/19 12:03 08/15/19 12:03 Results - Labs CBC & Chem 7: 08/15/19 05:28 08/12/19 20:51 Labs: Laboratory Last Values WBC 9.8 K/mm3 (4.5-11.0) 08/15/19 05:28 RBC 2.40 M/mm3 (3.65-5.03) L 08/15/19 05:28 Hgb 8.2 gm/dl (10.1-14.3) L 08/15/19 05:28 Hct 23.4 % (30.3-42.9) L 08/15/19 05:28 MCV 97 fl (79-97) 08/15/19 05:28 MCH 34 pg (28-32) H 08/15/19 05:28 MCHC 35 % (30-34) H 08/15/19 05:28 RDW 20.3 % (13.2-15.2) H 08/15/19 05:28 Plt Count 356 K/mm3 (140-440) 08/15/19 05:28 Lymph % (Auto) 31.2 % (13.4-35.0) 08/15/19 05:28 [place] % (Auto) 11.3 % (0.0-7.3) H 08/15/19 05:28 Eos % (Auto) 8.0 % (0.0-4.3) H 08/15/19 05:28 Baso % (Auto) 0.8 % (0.0-1.8) 08/15/19 05:28 Lymph # 3.0 K/mm3 (1.2-5.4) 08/15/19 05:28 [place] # 1.1 K/mm3 (0.0-0.8) H 08/15/19 05:28 Eos # 0.8 K/mm3 (0.0-0.4) H 08/15/19 05:28 Baso # 0.1 K/mm3 (0.0-0.1) 08/15/19 05:28 Seg Neutrophils % 48.7 % (40.0-70.0) 08/15/19 05:28 Seg Neutrophils # 4.8 K/mm3 (1.8-7.7) 08/15/19 05:28 Percent Retic 5.82 % (0.78-2.58) H 08/15/19 05:28 Sodium 139 mmol/L (137-145) 08/12/19 20:51 Potassium 3.8 mmol/L (3.6-5.0) 08/12/19 20:51 Chloride 105.7 mmol/L (98-107) 08/12/19 20:51 Carbon Dioxide 21 mmol/L (22-30) L 08/12/19 20:51 Anion Gap 16 mmol/L 08/12/19 20:51 BUN 9 mg/dL (7-17) 08/12/19 20:51 Creatinine 0.4 mg/dL (0.7-1.2) L 08/12/19 20:51 Estimated GFR > 60 ml/min 08/12/19 20:51 BUN/Creatinine Ratio 23 % 08/12/19 20:51 Glucose 101 mg/dL (65-100) H 08/12/19 20:51 Calcium 9.1 mg/dL (8.4-10.2) 08/12/19 20:51 Total Bilirubin 1.40 mg/dL (0.1-1.2) H 08/12/19 20:51 Direct Bilirubin 0.3 mg/dL (0-0.2) H 08/12/19 20:51 Indirect Bilirubin 1.1 mg/dL 08/12/19 20:51 AST 22 units/L (5-40) 08/12/19 20:51 ALT 12 units/L (7-56) 08/12/19 20:51 Alkaline Phosphatase 44 units/L (35-129) 08/12/19 20:51 Lactate Dehydrogenase 260 units/L (91-180) H 08/15/19 05:28 Total Protein 7.3 g/dL (6.3-8.2) 08/12/19 20:51 Albumin 4.4 g/dL (3.9-5) 08/12/19 20:51 Albumin/Globulin Ratio 1.5 % 08/12/19 20:51 HCG, Quant < 2 mIU/mL (0-4) 08/12/19 20:51 Urine Color Yellow (Yellow) 08/12/19 20:41 Urine Turbidity Clear (Clear) 08/12/19 20:41 Urine pH 6.0 (5.0-7.0) 08/12/19 20:41 Ur Specific [place] 1.015 (1.003-1.030) 08/12/19 20:41 Urine Protein <15 mg/dl mg/dL (Negative) 08/12/19 20:41 Urine Glucose (UA) Neg mg/dL (Negative) 08/12/19 20:41 Urine Ketones Neg mg/dL (Negative) 08/12/19 20:41 Urine Blood Neg (Negative) 08/12/19 20:41 Urine Nitrite Neg (Negative) 08/12/19 20:41 Urine Bilirubin Neg (Negative) 08/12/19 20:41 Urine Urobilinogen 2.0 mg/dL (<2.0) 08/12/19 20:41 Ur Leukocyte Esterase Tr (Negative) 08/12/19 20:41 Urine WBC (Auto) 3.0 /HPF (0.0-6.0) 08/12/19 20:41 Urine RBC (Auto) 2.0 /HPF (0.0-6.0) 08/12/19 20:41 U Epithel Cells (Auto) 4.0 /HPF (0-13.0) 08/12/19 20:41 Urine Mucus Few /HPF 08/12/19 20:41 Active Medications - Current Medications Current Medications: Generic Name Dose Route Start Last Admin Trade Name Freq PRN Reason Stop Dose Admin Acetaminophen 650 mg 08/14/19 23:08 08/14/19 23:34 Tylenol PO 650 mg Q4H PRN Administration Pain, Mild (1-3), fever>100.5 Bisacodyl 10 mg 08/13/19 00:[address] QDAY PRN Constipation unrelieved by MOM Diphenhydramine HCl 25 mg 08/15/19 09:44 08/15/19 13:23 Benadryl IV 25 mg Q4H PRN Administration Itching Folic Acid 1 mg 08/13/19 10:00 08/15/19 10:07 Folvite PO 1 mg QDAY MANAS Administration Hydromorphone HCl 2 mg 08/15/19 15:00 08/15/19 15:15 Dilaudid IV 2 mg Q4H PRN Administration Pain , Severe (7-10) Sodium Chloride 1,000 mls @ 75 mls/hr 08/15/19 10:00 08/15/19 10:06 Nacl 0.9% 1000 Ml IV 75 mls/hr DIRECT MANAS Administration Ibuprofen 800 mg 08/15/19 00:00 08/15/19 11:30 Ibuprofen PO 800 mg Q6H PRN Administration Pain, Mild (1-3) Magnesium Hydroxide 30 ml 08/13/19 00:45 Milk Of Magnesia PO Q4H PRN Constipation Morphine Sulfate 30 mg 08/14/19 14:00 08/15/19 13:23 Ms Contin Er PO 30 mg Q8HR MANAS Administration Multivitamins 1 each 08/13/19 10:00 08/15/19 10:07 Theragran Tab PO 1 each QDAY MANAS Administration Ondansetron HCl 4 mg 08/13/19 00:45 08/14/19 11:40 Zofran IV 4 mg Q8H PRN Administration Nausea And Vomiting Rivaroxaban 20 mg 08/14/19 23:00 08/15/19 10:08 Xarelto PO 20 mg QDAY MANAS Administration Senna 17.2 mg 08/13/19 22:00 08/14/19 21:59 Senokot PO Not Given QHS [facility] Nutrition/Malnutrition Assess - Dietary Evaluation Nutrition/Malnutrition Findings: Nutrition Notes Start: 08/13/19 15:40 Freq: Status: Active Protocol: Document 08/15/19 09:46 CT (Rec: 08/15/19 10:15 CT [id number]) Co-Sign 08/15/19 09:46 LM Nutrition Notes Initial or Follow up Reassessment Other Pertinent Diagnosis Sickle cell, Abdominal pain, Headache Labs/Tests Reviewed Pertinent Medications Reviewed Height 5 ft 5 in Weight 50 kg Usual Body Weight 52.27 kg [place] Body Weight (kg) 56.81 BMI 18.3 Subjective/Other Information Follow-up for PO and ONS intake. Pt stated no real appetite. She ate a bite or two of gutierrez. Stated that she has only been receiving 1 Ensure, when she was ordered 2 Ensure. She likes the strawberry and vanilla flavors . Would like to see oatmeal, eggs, or pancakes for breakfast Percent of energy/protein needs met: 0% / 0% Burn Absent Trauma Absent GI Symptoms None Minimum of two criteria No #1 Nutrition Diagnosis Inadequate oral intake Diagnosis Progress(for reassessment Continues documentation) Is patient on ventilator? No Is Patient Ambulatory and/or Out of Bed Yes REE-([facility]-ambulatory/OOB) [ 1626.144 NUTR.MSJOOB] Kcal/Kg value to use for calculation 43 Approximate Energy Requirements Using 2150 kcal/Kg Calculation Used for Recommendations Kcal/kg Additional Notes Protein Needs: 40-50g (0.8-1g/ kg) Fluid Needs: 1 ml/kcal Nutrition Intervention Change Diet Order: Continue current Add Supplement/Snack (indicate name/kcal Change to Ensure Enlive /protein ) [place], Vanilla TID Provides kCal: 1,050 Provides Protein (gm) 60 Goal #1 Meet at least 75% of calorie and protein needs via PO and ONS intakes Anticipated Discharge Needs: Regular diet Follow-Up By: 08/17/19 Additional Comments Follow for PO and ONS intakes
[2019-08-15] MEDS: SENNOSIDES 8.6 MG TAB PO SCH (21:51)
[2019-08-15] MEDS: ONDANSETRON 4 MG/2 ML INJ IV PRN (21:51)
[2019-08-16] MEDS: diphenhydrAMINE 50 MG/ML VIAL IV PRN ×3 (05:15→18:55)
[2019-08-16] MEDS: HYDROmorphone 2 MG/1 ML INJ IV PRN ×5 (05:15→20:29)
[2019-08-16 05:34] LABS: Basophils # (Auto) 0.3 K/mm3 (0.0-0.1); Basophils % (Auto) 2.1 % (0.0-1.8); Eosinophils # (Auto) 0.6 K/mm3 (0.0-0.4); Eosinophils % (Auto) 4.3 % (0.0-4.3); Hematocrit 20.8 % (30.3-42.9); Hemoglobin 7.2 gm/dl (10.1-14.3); Lymphocytes # (Auto) 1.2 K/mm3 (1.2-5.4); Lymphocytes % (Auto) 8.6 % (13.4-35.0); Mean Corpuscular HGB Conc 35 % (30-34); Mean Corpuscular Volume 96 fl (79-97); Monocytes # (Auto) 0.9 K/mm3 (0.0-0.8); Monocytes % (Auto) 6.4 % (0.0-7.3); Platelet Count 329 K/mm3 (140-440); Red Blood Count 2.16 M/mm3 (3.65-5.03); Red Cell Distribution Width 19.7 % (13.2-15.2)
--- NOTE | 2019-08-16 07:46 | Event Note ---
Date: 08/15/19 [id number]
--- NOTE | 2019-08-16 08:11 | Hem/Onc Progress Note ---
Assessment and Plan 1. Sickle cell disease. The patient is on pain medications, hydration. The patient is on Dilaudid and she is requesting higher titration for same. 2. History of pulmonary embolism. The patient is on Xarelto. 3. 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 4. The patient says she has been getting frequent admission. The patient was on hydroxyurea in the past, but could not tolerate because of nausea issues. 5. The patient has been following with [facility] system. 6. For the pain, we will look into TRANSMITTER OPERATOR pump and continue with the present pain medications. Pt refused TRANSMITTER OPERATOR The plan was to continue the present IV dilaudid and add the TRANSMITTER OPERATOR - small dose to start, but patient is keen to get higher dose of dialudid like 6- 8 mg I explained to her that TRANSMITTER OPERATOR will work better, she prefers the TRANSMITTER OPERATOR dose to be added to the q 3-4 hrs dose instead of the TRANSMITTER OPERATOR Pt was adamant about same and later was unhappy when I told that I will talk to other drs. Pt informed me that she took hydrea for some time and her dust box tender stopped as it as not working. I will sign off and see her PRN.. post discharge pt will go back to [facility] d/w RN reg the pt request for pain meds d/w dr Gallagher - Patient Problems (1) Sickle cell anemia with pain Current Visit: Yes Status: Acute Subjective Date of service: 08/16/19 Principal diagnosis: sickle cell disease with pain Interval history: refused TRANSMITTER OPERATOR pump dose of dilaudid increased Objective - Exam Narrative Exam: Pain - none General appearance - on o2 Performance status - limited self care Eyes - no icterus, ENT - no bleeding LNs cervical not palpable Neck - no LN Respiratory Normal Breath sounds - CTA anteriorly CVS S1 S2 + Extremities no edema General GI Soft Rectal deferred female - deferred Skin warm Musculoskeletal moves limbs Neurologically follows commands - Constitutional Vitals: Last Vital Signs Temp 98.3 F 08/16/19 06:38 Pulse 102 H 08/16/19 06:38 Resp 18 08/16/19 06:38 BP 112/53 08/16/19 06:38 Pulse Ox 92 08/16/19 06:38 - Labs Lab Results: Laboratory Results - last 24 hr 08/16/19 08/16/19 04:56 04:56 WBC 14.1 H RBC 2.16 L Hgb 7.2 L Hct 20.8 L MCV 96 MCH 33 H MCHC 35 H RDW 19.7 H Plt Count 329 Lymph % (Auto) 8.6 L [place] % (Auto) 6.4 Eos % (Auto) 4.3 Baso % (Auto) 2.1 H Lymph # 1.2 [place] # 0.9 H Eos # 0.6 H Baso # 0.3 H Seg Neutrophils % 78.6 H Seg Neutrophils # 11.1 H Percent Retic 5.12 H Lactate Dehydrogenase 226 H Medications & Allergies - Medications Allergies/Adverse Reactions: Allergies cefepime Allergy (Verified 05/20/19 10:21) Hives shellfish derived Allergy (Verified 05/20/19 10:21) Swelling vancomycin Allergy (Verified 05/20/19 10:21) Hives Fish Allergy (Uncoded 08/13/19 18:14) Swelling Home Medications: Home Medications Medication Instructions Recorded Confirmed Last Taken Type Xarelto 20 mg PO QDAY 05/25/19 08/13/19 1 Day Ago History ~05/24/19 20 mg Folic Acid [Folvite] 1 mg PO QDAY 08/13/19 08/13/19 Unknown History Ondansetron [Zofran ODT TAB] 1 tab PO TID PRN 08/13/19 08/13/19 Unknown History Active Medications: Generic Name Dose Route Start Last Admin Trade Name Moeq PRN Reason Stop Dose Admin Acetaminophen 650 mg 08/14/19 23:08 08/14/19 23:34 Tylenol PO 650 mg Q4H PRN Administration Pain, Mild (1-3), fever>100.5 Bisacodyl 10 mg 08/13/19 00:45 Dulcolax [place] QDAY PRN Constipation unrelieved by MOM Diphenhydramine HCl 25 mg 08/15/19 09:44 08/15/19 21:51 Benadryl IV 25 mg Q4H PRN Administration Itching Folic Acid 1 mg 08/13/19 10:00 08/15/19 10:07 Folvite PO 1 mg QDAY MANAS Administration Hydromorphone HCl 2 mg 08/15/19 15:00 08/15/19 21:51 Dilaudid IV 2 mg Q4H PRN Administration Pain , Severe (7-10) Sodium Chloride 1,000 mls @ 75 mls/hr 08/15/19 10:00 08/15/19 21:50 Nacl 0.9% 1000 Ml IV 75 mls/hr DIRECT MANAS Administration Ibuprofen 800 mg 08/15/19 00:00 08/15/19 11:30 Ibuprofen PO 800 mg Q6H PRN Administration Pain, Mild (1-3) Magnesium Hydroxide 30 ml 08/13/19 00:45 Milk Of Magnesia PO Q4H PRN Constipation Multivitamins 1 each 08/13/19 10:00 08/15/19 10:07 Theragran Tab PO 1 each QDAY MANAS Administration Ondansetron HCl 4 mg 08/13/19 00:45 08/15/19 21:51 Zofran IV 4 mg Q8H PRN Administration Nausea And Vomiting Rivaroxaban 20 mg 08/14/19 23:00 08/15/19 10:08 Xarelto PO 20 mg QDAY MANAS Administration Senna 17.2 mg 08/13/19 22:00 08/15/19 21:51 Senokot PO Not Given QHS MANAS
--- NOTE | 2019-08-16 08:23 | Consultation ---
REASON FOR CONSULTATION: Pain issues, sickle cell. HISTORY OF PRESENT ILLNESS: I saw the patient, a 24-year-old female in the medical floor. I had seen her in the past in the COMMERCIAL LINES MANAGER floor in 05/2019. The patient has moved from [place]. She has a history of sickle cell disease. She was on hydroxyurea in the past, but as it caused nausea, she is not on it. She is on folic acid. The patient says she has been getting hospitalized every few weeks. The patient has a kid and a sister. She is complaining of pain issues. No hematemesis, no hematochezia. No other bleeding issues. The patient has a history of pulmonary embolism, for which she is on Xarelto. The patient is on pain medicines, but she is requesting titration of the same to a higher level. I have been asked to evaluate the patient for this. PAST MEDICAL HISTORY: PE, sickle cell disease. PAST SURGICAL HISTORY: Delivery, vaginal. SOCIAL HISTORY: Single, no history of tobacco or alcohol usage. FAMILY HISTORY: Noncontributory. ALLERGIES: To CEFEPIME, VANCOMYCIN, SHELLFISH. MEDICATIONS: Include Colace, folic acid, Dilaudid, Xarelto. PHYSICAL EXAMINATION: VITAL SIGNS: Temperature 98, pulse 93, respirations 18, BP 104/37. HEENT: Pallor present, no icterus. NECK: No neck lymph nodes. HEART: S1, S2. LUNGS: Clear to auscultation. ABDOMEN: Soft. EXTREMITIES: No calf tenderness. NEUROLOGIC: Alert, awake, oriented. LABORATORY DATA: White cell 9, hemoglobin 8.2, MCV 97, platelets 356. Potassium 3.8, creatinine 0.4, calcium 9, bilirubin 1.4, LDH 230. B12 of 401. Folate 15, serum iron 56 in 05/2019 and ferritin 879 at the same time. RADIOLOGY: The patient underwent an abdominal pelvis CT during this admission, this did not show any inflammatory or bowel problems. ASSESSMENT AND PLAN: 1. Sickle cell disease. The patient is on pain medications, hydration. The patient is on Dilaudid and she is requesting higher titration for same. 2. History of pulmonary embolism. The patient is on Xarelto. 3. 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 4. The patient says she has been getting frequent admission. The patient was on hydroxyurea in the past, but could not tolerate because of nausea issues. 5. The patient has been following with [facility] system. 6. For the pain, we will look into UNEMPLOYMENT EXAMINER pump and continue with the present pain medications. JOB# [id number] JENNIFER/ALCIDES
[2019-08-16] MEDS: ONDANSETRON 4 MG/2 ML INJ IV PRN (09:38)
--- NOTE | 2019-08-16 10:34 | Progress Note ---
Assessment and Plan Assessment and plan: Sickle cell vaso-occlusive crisis with pain Patient admitted into the medical floor will place on IV fluid and analgesic medication. Will monitor CBC and also monitor reticulocyte count. Pain uncontrolled Added shceduled long acting narcotic - MS Contin but patient says she does not want it, so discontinued She was seen by Dr. Sloan , CEO & FOUNDER Dilaudid pump ordered but she declined she is requesting more Dilaudid Will increase Dilaudid to 3mg iv q 3h. She was on 2mg iv Q 4hr yesterday but says pain not controlled. She was requesting 6mg iv Dilaudid , but I told her that dose is too high Also recommend continuous pulse ox, Telemetry, narcan iv prn Headache On narcotics Hx of pulmonary embolus Patient has been on anticoagulation with Xarelto. Continue Xarelto. History Interval history: Headache generalized body pain Patient says pain meds not enough Asking for more Dilaudid Declines CEO [employer] FOUNDER pump ordered by Dr. Sloan Hospitalist Physical - Physical exam Narrative exam: Gen: Not in acute distress, lying in bed HEENT: Normocephalic, atraumatic Neck: supple, no JVD Heart: S1 and S2 reg, no murmurs, rubs or gallop Lungs: Clear to auscultation, no rhonchi, no wheeze Abd: soft, tender LLQ, no rebound, non distended, normal BS, Ext: No edema, no clubbing, no cyanosis Neuro: Awake, alert, oriented X 3, anxious, no focal neurological signs - Constitutional Vitals: Temp Pulse Resp BP Pulse Ox 98.3 F 102 H 18 112/53 92 08/16/19 06:38 08/16/19 06:38 08/16/19 06:38 08/16/19 06:38 08/16/19 06:38 Results - Labs CBC & Chem 7: 08/16/19 04:56 08/12/19 20:51 Labs: Laboratory Last Values WBC 14.1 K/mm3 (4.5-11.0) H 08/16/19 04:56 RBC 2.16 M/mm3 (3.65-5.03) L 08/16/19 04:56 Hgb 7.2 gm/dl (10.1-14.3) L 08/16/19 04:56 Hct 20.8 % (30.3-42.9) L 08/16/19 04:56 MCV 96 fl (79-97) 08/16/19 04:56 MCH 33 pg (28-32) H 08/16/19 04:56 MCHC 35 % (30-34) H 08/16/19 04:56 RDW 19.7 % (13.2-15.2) H 08/16/19 04:56 Plt Count 329 K/mm3 (140-440) 08/16/19 04:56 Lymph % (Auto) 8.6 % (13.4-35.0) L 08/16/19 04:56 [place] % (Auto) 6.4 % (0.0-7.3) 08/16/19 04:56 Eos % (Auto) 4.3 % (0.0-4.3) 08/16/19 04:56 Baso % (Auto) 2.1 % (0.0-1.8) H 08/16/19 04:56 Lymph # 1.2 K/mm3 (1.2-5.4) 08/16/19 04:56 [place] # 0.9 K/mm3 (0.0-0.8) H 08/16/19 04:56 Eos # 0.6 K/mm3 (0.0-0.4) H 08/16/19 04:56 Baso # 0.3 K/mm3 (0.0-0.1) H 08/16/19 04:56 Seg Neutrophils % 78.6 % (40.0-70.0) H 08/16/19 04:56 Seg Neutrophils # 11.1 K/mm3 (1.8-7.7) H 08/16/19 04:56 Percent Retic 5.12 % (0.78-2.58) H 08/16/19 04:56 Sodium 139 mmol/L (137-145) 08/12/19 20:51 Potassium 3.8 mmol/L (3.6-5.0) 08/12/19 20:51 Chloride 105.7 mmol/L (98-107) 08/12/19 20:51 Carbon Dioxide 21 mmol/L (22-30) L 08/12/19 20:51 Anion Gap 16 mmol/L 08/12/19 20:51 BUN 9 mg/dL (7-17) 08/12/19 20:51 Creatinine 0.4 mg/dL (0.7-1.2) L 08/12/19 20:51 Estimated GFR > 60 ml/min 08/12/19 20:51 BUN/Creatinine Ratio 23 % 08/12/19 20:51 Glucose 101 mg/dL (65-100) H 08/12/19 20:51 Calcium 9.1 mg/dL (8.4-10.2) 08/12/19 20:51 Total Bilirubin 1.40 mg/dL (0.1-1.2) H 08/12/19 20:51 Direct Bilirubin 0.3 mg/dL (0-0.2) H 08/12/19 20:51 Indirect Bilirubin 1.1 mg/dL 08/12/19 20:51 AST 22 units/L (5-40) 08/12/19 20:51 ALT 12 units/L (7-56) 08/12/19 20:51 Alkaline Phosphatase 44 units/L (35-129) 08/12/19 20:51 Lactate Dehydrogenase 226 units/L (91-180) H 08/16/19 04:56 Total Protein 7.3 g/dL (6.3-8.2) 08/12/19 20:51 Albumin 4.4 g/dL (3.9-5) 08/12/19 20:51 Albumin/Globulin Ratio 1.5 % 08/12/19 20:51 HCG, Quant < 2 mIU/mL (0-4) 08/12/19 20:51 Urine Color Yellow (Yellow) 08/12/19 20:41 Urine Turbidity Clear (Clear) 08/12/19 20:41 Urine pH 6.0 (5.0-7.0) 08/12/19 20:41 Ur Specific [place] 1.015 (1.003-1.030) 08/12/19 20:41 Urine Protein <15 mg/dl mg/dL (Negative) 08/12/19 20:41 Urine Glucose (UA) Neg mg/dL (Negative) 08/12/19 20:41 Urine Ketones Neg mg/dL (Negative) 08/12/19 20:41 Urine Blood Neg (Negative) 08/12/19 20:41 Urine Nitrite Neg (Negative) 08/12/19 20:41 Urine Bilirubin Neg (Negative) 08/12/19 20:41 Urine Urobilinogen 2.0 mg/dL (<2.0) 08/12/19 20:41 Ur Leukocyte Esterase Tr (Negative) 08/12/19 20:41 Urine WBC (Auto) 3.0 /HPF (0.0-6.0) 08/12/19 20:41 Urine RBC (Auto) 2.0 /HPF (0.0-6.0) 08/12/19 20:41 U Epithel Cells (Auto) 4.0 /HPF (0-13.0) 08/12/19 20:41 Urine Mucus Few /HPF 08/12/19 20:41 Active Medications - Current Medications Current Medications: Generic Name Dose Route Start Last Admin Trade Name Moeq PRN Reason Stop Dose Admin Acetaminophen 650 mg 08/14/19 23:08 08/14/19 23:34 Tylenol PO 650 mg Q4H PRN Administration Pain, Mild (1-3), fever>100.5 Bisacodyl 10 mg 08/13/19 00:45 Dulcolax [place] QDAY PRN Constipation unrelieved by MOM Diphenhydramine HCl 25 mg 08/15/19 09:44 08/15/19 21:51 Benadryl IV 25 mg Q4H PRN Administration Itching Folic Acid 1 mg 08/13/19 10:00 08/15/19 10:07 Folvite PO 1 mg QDAY MANAS Administration Hydromorphone HCl 2 mg 08/15/19 15:00 08/16/19 09:38 Dilaudid IV 2 mg Q4H PRN Administration Pain , Severe (7-10) Sodium Chloride 1,000 mls @ 75 mls/hr 08/15/19 10:00 08/15/19 21:50 Nacl 0.9% 1000 Ml IV 75 mls/hr DIRECT MANAS Administration Ibuprofen 800 mg 08/15/19 00:00 08/15/19 11:30 Ibuprofen PO 800 mg Q6H PRN Administration Pain, Mild (1-3) Magnesium Hydroxide 30 ml 08/13/19 00:45 Milk Of Magnesia PO Q4H PRN Constipation Multivitamins 1 each 08/13/19 10:00 08/15/19 10:07 Theragran Tab PO 1 each QDAY MANAS Administration Ondansetron HCl 4 mg 08/13/19 00:45 08/16/19 09:38 Zofran IV 4 mg Q8H PRN Administration Nausea And Vomiting Rivaroxaban 20 mg 08/14/19 23:00 08/15/19 10:08 Xarelto PO 20 mg QDAY MANAS Administration Senna 17.2 mg 08/13/19 22:00 08/15/19 21:51 Senokot PO Not Given QHS [facility] Nutrition/Malnutrition Assess - Dietary Evaluation Nutrition/Malnutrition Findings: Nutrition Notes Start: 08/13/19 15:40 Freq: Status: Active Protocol: Document 08/15/19 09:46 CT (Rec: 08/15/19 10:15 CT [id number]) Co-Sign 08/15/19 09:46 LM Nutrition Notes Initial or Follow up Reassessment Other Pertinent Diagnosis Sickle cell, Abdominal pain, Headache Labs/Tests Reviewed Pertinent Medications Reviewed Height 5 ft 5 in Weight 50 kg Usual Body Weight 52.27 kg [place] Body Weight (kg) 56.81 BMI 18.3 Subjective/Other Information Follow-up for PO and ONS intake. Pt stated no real appetite. She ate a bite or two of gutierrez. Stated that she has only been receiving 1 Ensure, when she was ordered 2 Ensure. She likes the strawberry and vanilla flavors . Would like to see oatmeal, eggs, or pancakes for breakfast Percent of energy/protein needs met: 0% / 0% Burn Absent Trauma Absent GI Symptoms None Minimum of two criteria No #1 Nutrition Diagnosis Inadequate oral intake Diagnosis Progress(for reassessment Continues documentation) Is patient on ventilator? No Is Patient Ambulatory and/or Out of Bed Yes REE-([facility]-ambulatory/OOB) [ 1626.144 NUTR.MSJOOB] Kcal/Kg value to use for calculation 43 Approximate Energy Requirements Using 2150 kcal/Kg Calculation Used for Recommendations Kcal/kg Additional Notes Protein Needs: 40-50g (0.8-1g/ kg) Fluid Needs: 1 ml/kcal Nutrition Intervention Change Diet Order: Continue current Add Supplement/Snack (indicate name/kcal Change to Ensure Enlive /protein ) [place], Vanilla TID Provides kCal: 1,050 Provides Protein (gm) 60 Goal #1 Meet at least 75% of calorie and protein needs via PO and ONS intakes Anticipated Discharge Needs: Regular diet Follow-Up By: 08/17/19 Additional Comments Follow for PO and ONS intakes
[2019-08-16] MEDS: RIVAROXABAN 20 MG TAB PO SCH (10:45)
[2019-08-16] MEDS: MULTIVITAMINS ,THERAPEUTIC TAB PO SCH (10:45)
[2019-08-16] MEDS ORDERED: HYDROmorphone 2 MG/1 ML INJ IV PRN (10:45)
[2019-08-16] MEDS: FOLIC ACID 1 MG TAB PO SCH (10:45)
[2019-08-16] MEDS ORDERED: NALOXONE 2 MG/2 ML INJ IV PRN (10:47)
[2019-08-16] MEDS: SODIUM CHLORIDE 0.9% 1000 ML 1,000 ML IV SCH (12:40)
[2019-08-16] MEDS: SENNOSIDES 8.6 MG TAB PO SCH (22:17)
[2019-08-17] MEDS: diphenhydrAMINE 50 MG/ML VIAL IV PRN ×4 (00:15→17:18)
[2019-08-17] MEDS: HYDROmorphone 2 MG/1 ML INJ IV PRN ×6 (00:15→21:37)
[2019-08-17] MEDS: ONDANSETRON 4 MG/2 ML INJ IV PRN (03:58)
[2019-08-17] MEDS: SODIUM CHLORIDE 0.9% 1000 ML 1,000 ML IV SCH ×2 (08:01→19:39)
[2019-08-17] MEDS: MULTIVITAMINS ,THERAPEUTIC TAB PO SCH (09:00)
[2019-08-17] MEDS: FOLIC ACID 1 MG TAB PO SCH (09:00)
[2019-08-17] MEDS: RIVAROXABAN 20 MG TAB PO SCH (09:00)
[2019-08-17] MEDS ORDERED: BUTALB/ACETAMINOPHEN/CAFFEINE TAB PO PRN (13:55)
--- NOTE | 2019-08-17 14:06 | Progress Note ---
Assessment and Plan Assessment and plan: Patient is a 24-year-old female with known history of sickle cell disease and also history of pulmonary embolism on Xarelto presented to the emergency room complaining of headache generalized body aches and pain. She has also complaining of abdominal pain and back pain. She denies any fever no chills no nausea vomiting. She follows up with a wan support specialist at [facility]. She has been compliant with her medications and she takes Tylenol with codeine for pain relief. Patient denies any cough, no shortness of breath, no fever or chills. She was admitted for sickle cell vaso-occlusive crisis. Sickle cell vaso-occlusive crisis with pain Patient admitted into the medical floor/ On IV fluids and analgesic medication. Will monitor CBC and also monitor reticulocyte count. Pain uncontrolled Added scheduled long acting narcotic - MS Contin but patient says she does not want it, so discontinued She was seen by Dr. Solan , DIE DRAWING CHECKER Dilaudid pump ordered but she declined. D Dr. Sloan signed off She has been requesting more Dilaudid, so I increased Dilaudid to 3mg iv q 3h yesterday 08/16. She was on 2mg iv Q 4hr on 08/15 but says pain not controlled. She was requesting 6mg iv Dilaudid , but I told her that dose is too high Also recommend continuous pulse ox, Telemetry, narcan iv prn Will decrease Dilaudid to 2mg iv q 4hr today Consulted risk management Headache On narcotics Add Fioricet Hx of pulmonary embolus Patient has been on anticoagulation with Xarelto. Continue Xarelto. Hopefully dc home in 1-2 days History Interval history: Headache generalized body pain Patient says pain improved slightly with 3mg Dilaudid Declines DIE DRAWING CHECKER pump ordered by Dr. Sloan Hospitalist Physical - Physical exam Narrative exam: Gen: Not in acute distress, lying in bed HEENT: Normocephalic, atraumatic Neck: supple, no JVD Heart: S1 and S2 reg, no murmurs, rubs or gallop Lungs: Clear to auscultation, no rhonchi, no wheeze Abd: soft, tender LLQ, no rebound, non distended, normal BS, Ext: No edema, no clubbing, no cyanosis Neuro: Awake, alert, oriented X 3, anxious, no focal neurological signs - Constitutional Vitals: Temp Pulse Resp BP Pulse Ox 98.6 F 99 H 18 102/57 96 08/17/19 12:47 08/17/19 12:47 08/17/19 12:47 08/17/19 12:47 08/17/19 12:47 Results - Labs CBC & Chem 7: 08/16/19 04:56 08/12/19 20:51 Labs: Laboratory Last Values WBC 14.1 K/mm3 (4.5-11.0) H 08/16/19 04:56 RBC 2.16 M/mm3 (3.65-5.03) L 08/16/19 04:56 Hgb 7.2 gm/dl (10.1-14.3) L 08/16/19 04:56 Hct 20.8 % (30.3-42.9) L 08/16/19 04:56 MCV 96 fl (79-97) 08/16/19 04:56 MCH 33 pg (28-32) H 08/16/19 04:56 MCHC 35 % (30-34) H 08/16/19 04:56 RDW 19.7 % (13.2-15.2) H 08/16/19 04:56 Plt Count 329 K/mm3 (140-440) 08/16/19 04:56 Lymph % (Auto) 8.6 % (13.4-35.0) L 08/16/19 04:56 [place] % (Auto) 6.4 % (0.0-7.3) 08/16/19 04:56 Eos % (Auto) 4.3 % (0.0-4.3) 08/16/19 04:56 Baso % (Auto) 2.1 % (0.0-1.8) H 08/16/19 04:56 Lymph # 1.2 K/mm3 (1.2-5.4) 08/16/19 04:56 [place] # 0.9 K/mm3 (0.0-0.8) H 08/16/19 04:56 Eos # 0.6 K/mm3 (0.0-0.4) H 08/16/19 04:56 Baso # 0.3 K/mm3 (0.0-0.1) H 08/16/19 04:56 Seg Neutrophils % 78.6 % (40.0-70.0) H 08/16/19 04:56 Seg Neutrophils # 11.1 K/mm3 (1.8-7.7) H 08/16/19 04:56 Percent Retic 5.12 % (0.78-2.58) H 08/16/19 04:56 Sodium 139 mmol/L (137-145) 08/12/19 20:51 Potassium 3.8 mmol/L (3.6-5.0) 08/12/19 20:51 Chloride 105.7 mmol/L (98-107) 08/12/19 20:51 Carbon Dioxide 21 mmol/L (22-30) L 08/12/19 20:51 Anion Gap 16 mmol/L 08/12/19 20:51 BUN 9 mg/dL (7-17) 08/12/19 20:51 Creatinine 0.4 mg/dL (0.7-1.2) L 08/12/19 20:51 Estimated GFR > 60 ml/min 08/12/19 20:51 BUN/Creatinine Ratio 23 % 08/12/19 20:51 Glucose 101 mg/dL (65-100) H 08/12/19 20:51 Calcium 9.1 mg/dL (8.4-10.2) 08/12/19 20:51 Total Bilirubin 1.40 mg/dL (0.1-1.2) H 08/12/19 20:51 Direct Bilirubin 0.3 mg/dL (0-0.2) H 08/12/19 20:51 Indirect Bilirubin 1.1 mg/dL 08/12/19 20:51 AST 22 units/L (5-40) 08/12/19 20:51 ALT 12 units/L (7-56) 08/12/19 20:51 Alkaline Phosphatase 44 units/L (35-129) 08/12/19 20:51 Lactate Dehydrogenase 226 units/L (91-180) H 08/16/19 04:56 Total Protein 7.3 g/dL (6.3-8.2) 08/12/19 20:51 Albumin 4.4 g/dL (3.9-5) 08/12/19 20:51 Albumin/Globulin Ratio 1.5 % 08/12/19 20:51 HCG, Quant < 2 mIU/mL (0-4) 08/12/19 20:51 Urine Color Yellow (Yellow) 08/12/19 20:41 Urine Turbidity Clear (Clear) 08/12/19 20:41 Urine pH 6.0 (5.0-7.0) 08/12/19 20:41 Ur Specific [place] 1.015 (1.003-1.030) 08/12/19 20:41 Urine Protein <15 mg/dl mg/dL (Negative) 08/12/19 20:41 Urine Glucose (UA) Neg mg/dL (Negative) 08/12/19 20:41 Urine Ketones Neg mg/dL (Negative) 08/12/19 20:41 Urine Blood Neg (Negative) 08/12/19 20:41 Urine Nitrite Neg (Negative) 08/12/19 20:41 Urine Bilirubin Neg (Negative) 08/12/19 20:41 Urine Urobilinogen 2.0 mg/dL (<2.0) 08/12/19 20:41 Ur Leukocyte Esterase Tr (Negative) 08/12/19 20:41 Urine WBC (Auto) 3.0 /HPF (0.0-6.0) 08/12/19 20:41 Urine RBC (Auto) 2.0 /HPF (0.0-6.0) 08/12/19 20:41 U Epithel Cells (Auto) 4.0 /HPF (0-13.0) 08/12/19 20:41 Urine Mucus Few /HPF 08/12/19 20:41 Active Medications - Current Medications Current Medications: Generic Name Dose Route Start Last Admin Trade Name Freq PRN Reason Stop Dose Admin Acetaminophen 650 mg 08/14/19 23:08 08/14/19 23:34 Tylenol PO 650 mg Q4H PRN Administration Pain, Mild (1-3), fever>100.5 Acetaminophen/Butalbital/Caffeine 1 tab 08/17/19 13:55 Fioricet PO Q4H PRN Headache Bisacodyl 10 mg 08/13/19 00:45 Dulcolax [place] QDAY PRN Constipation unrelieved by MOM Diphenhydramine HCl 25 mg 08/15/19 09:44 08/17/19 12:55 Benadryl IV 25 mg Q4H PRN Administration Itching Folic Acid 1 mg 08/13/19 10:00 08/17/19 09:00 Folvite PO 1 mg QDAY MANAS Administration Hydromorphone HCl 3 mg 08/16/19 10:47 08/17/19 12:55 Dilaudid IV 3 mg Q3H PRN Administration Pain , Severe (7-10) Sodium Chloride 1,000 mls @ 75 mls/hr 08/15/19 10:00 08/17/19 08:01 Nacl 0.9% 1000 Ml IV 75 mls/hr DIRECT MANAS Administration Ibuprofen 800 mg 08/15/19 00:00 08/15/19 11:30 Ibuprofen PO 800 mg Q6H PRN Administration Pain, Mild (1-3) Magnesium Hydroxide 30 ml 08/13/19 00:45 Milk Of Magnesia PO Q4H PRN Constipation Multivitamins 1 each 08/13/19 10:00 08/17/19 09:00 Theragran Tab PO 1 each QDAY MANAS Administration Naloxone HCl 0.1 mg 08/16/19 10:47 Naloxone IV Q2MIN PRN Res Rate </= 8 or 02 SAT < 92% Ondansetron HCl 4 mg 08/13/19 00:45 08/17/19 03:58 Zofran IV 4 mg Q8H PRN Administration Nausea And Vomiting Rivaroxaban 20 mg 08/14/19 23:00 08/17/19 09:00 Xarelto PO 20 mg QDAY MANAS Administration Senna 17.2 mg 08/13/19 22:00 08/16/19 22:17 Senokot PO 17.2 mg QHS MANAS Administration Nutrition/Malnutrition Assess - Dietary Evaluation Nutrition/Malnutrition Findings: Nutrition Notes Start: 08/13/19 15:40 Freq: Status: Active Protocol: Document 08/17/19 12:47 CC (Rec: 08/17/19 13:00 CC [id number]) Co-Sign 08/17/19 12:47 LP Nutrition Notes Initial or Follow up Reassessment Other Pertinent Diagnosis Sickle cell, Abdominal pain, Headache Current Diet Regular Labs/Tests Reviewed Pertinent Medications Reviewed Height 5 ft 5 in Weight 51 kg Usual Body Weight 52.27 kg [place] Body Weight (kg) 56.81 BMI 18.7 Weight change and time frame 4.34%/ 3 weeks Subjective/Other Information f/u for PO and ONS intake. Pt reported she feels hungry but once her meal comes she feels nauseous therfore she is unable to eat. Observed 50% of breakfast consumed. Pt reported she has been able to consume ONS TID. Percent of energy/protein needs met: 100% energy/ 100% protein Burn Absent Trauma Absent GI Symptoms Nausea Current % PO Fair (50-74%) Minimum of two criteria No #1 Nutrition Diagnosis Inadequate oral intake Diagnosis Progress(for reassessment Continues documentation) Is patient on ventilator? No Is Patient Ambulatory and/or Out of Bed Yes REE-([place]-ambulatory/OOB) [ 1639.144 NUTR.MSJOOB] Kcal/Kg value to use for calculation 43 Approximate Energy Requirements Using 2193 kcal/Kg Calculation Used for Recommendations Kcal/kg Additional Notes Protein Needs: 41-51g (0.8-1g/ kg) Fluid Needs: 1 ml/kcal Nutrition Intervention Change Diet Order: Continue current Add Supplement/Snack (indicate name/kcal Ensure Enlive [place], /protein ) Vanilla TID Provides kCal: 1,050 Provides Protein (gm) 60 Goal #1 Meet at least 75% of calorie and protein needs via PO and ONS intakes Anticipated Discharge Needs: Regular diet Follow-Up By: 08/20/19 Additional Comments Follow for PO and ONS intakes
[2019-08-17] MEDS: SENNOSIDES 8.6 MG TAB PO SCH (21:38)
[2019-08-18] MEDS: diphenhydrAMINE 50 MG/ML VIAL IV PRN ×5 (01:31→23:01)
[2019-08-18] MEDS: HYDROmorphone 2 MG/1 ML INJ IV PRN ×6 (01:32→23:01)
[2019-08-18] MEDS: SODIUM CHLORIDE 0.9% 1000 ML 1,000 ML IV SCH ×2 (05:35→15:32)
[2019-08-18 05:47] LABS: Hematocrit 21.3 % (30.3-42.9); Hemoglobin 7.6 gm/dl (10.1-14.3); Mean Corpuscular HGB Conc 36 % (30-34); Mean Corpuscular Volume 94 fl (79-97); Platelet Count 349 K/mm3 (140-440); Red Blood Count 2.28 M/mm3 (3.65-5.03); Red Cell Distribution Width 19.4 % (13.2-15.2)
[2019-08-18 06:07] LABS: BUN/Creatinine Ratio 10; Blood Urea Nitrogen 4 mg/dL (7-17); Calcium 9.1 mg/dL (8.4-10.2); Hemolysis Index 17
[2019-08-18] MEDS: RIVAROXABAN 20 MG TAB PO SCH (09:34)
[2019-08-18] MEDS: MULTIVITAMINS ,THERAPEUTIC TAB PO SCH (09:35)
[2019-08-18] MEDS: FOLIC ACID 1 MG TAB PO SCH (09:35)
--- NOTE | 2019-08-18 12:00 | Progress Note ---
Assessment and Plan Patient is a 24-year-old female with known history of sickle cell disease and also history of pulmonary embolism on Xarelto presented to the emergency room complaining of headache generalized body aches and pain. She has also complaining of abdominal pain and back pain. She denies any fever no chills no nausea vomiting. She follows up with a gas maker helper at [facility]. She has been compliant with her medications and she takes Tylenol with codeine for pain relief. Patient denies any cough, no shortness of breath, no fever or chills. She was admitted for sickle cell vaso-occlusive crisis. - Sickle cell vaso-occlusive crisis with pain On IV fluids and analgesic medication. - Pain uncontrolled Added scheduled long acting narcotic - MS Contin but patient says she does not want it, so discontinued She was seen by Dr. Sloan , RESIDENT CARE TECHNICIAN Dilaudid pump ordered but she declined. D She has been requesting more Dilaudid, now on Dilaudid to 3mg iv q 3h yesterday 08/16. Also recommend continuous pulse ox, Telemetry, narcan iv prn Will decrease Dilaudid to 2mg iv q 4hr today Consulted risk management Headache On narcotics Add Fioricet Hx of pulmonary embolus Patient has been on anticoagulation with Xarelto. Continue Xarelto. Subjective Date of service: 08/18/19 Principal diagnosis: sickle cell disease with pain, anemia sickle cell Interval history: Patient seen and examined. Laying quietly in bed and on her cell phone. In no obvious distress or pain Objective - Exam Narrative Exam: Constitutional: Well-nourished well-developed. In no distress Head: Normocephalic atraumatic Eyes: Pupils are equal round and reactive to light Nose: No enlarged turbinates, no septal deviation. Mouth: Moist mucous membranes. Neck: Supple no thyromegaly. No bruit. No JVD Heart: Regular rate and rhythm, S1-S2 normal. No rubs murmurs or gallop Lungs: Clear to auscultation bilaterally. no rales or rhonchi Abdomen: Soft, nontender. Bowel sound are present. Extremities: No edema, no cyanosis, no clubbing. Neuro: Alert oriented Oriented x3. No focal sensory or motor deficit. Skin: No rashes or hyperpigmented spots Musculoskeletal system: No joint pain or swelling Hematological: No petechia or subcutanous hemorrhages. Immunological: No multiple septic spots on the skin Lymphatic: No generalized lymphadenopathy Psychiatry: Euthymic. Calm. - Constitutional Vitals: Vital Signs - 12hr 08/18/19 06:11 Temperature 97.6 F Pulse Rate 80 Respiratory 16 Rate Blood Pressure 80/40 O2 Sat by Pulse 92 Oximetry - Labs CBC & Chem 7: 08/18/19 04:45 08/18/19 04:45 Labs: Abnormal lab results 08/18/19 08/18/19 Range/Units 04:45 04:45 RBC 2.28 L (3.65-5.03) M/mm3 Hgb 7.6 L (10.1-14.3) gm/dl Hct 21.3 L (30.3-42.9) % MCH 33 H (28-32) pg MCHC 36 H (30-34) % RDW 19.4 H (13.2-15.2) % BUN 4 L (7-17) mg/dL Creatinine 0.4 L (0.7-1.2) mg/dL
[2019-08-18 13:44] LABS: Basophils # (Auto) 0.1 K/mm3 (0.0-0.1); Basophils % (Auto) 0.9 % (0.0-1.8); Eosinophils # (Auto) 0.4 K/mm3 (0.0-0.4); Eosinophils % (Auto) 4.3 % (0.0-4.3); Hematocrit 22.5 % (30.3-42.9); Hemoglobin 8.2 gm/dl (10.1-14.3); Lymphocytes # (Auto) 2.6 K/mm3 (1.2-5.4); Lymphocytes % (Auto) 24.7 % (13.4-35.0); Mean Corpuscular HGB Conc 36 % (30-34); Mean Corpuscular Volume 93 fl (79-97); Platelet Count 429 K/mm3 (140-440); Red Blood Count 2.41 M/mm3 (3.65-5.03); Red Cell Distribution Width 19.6 % (13.2-15.2)
[2019-08-18] MEDS: SENNOSIDES 8.6 MG TAB PO SCH (23:10)
[2019-08-19] MEDS: HYDROmorphone 2 MG/1 ML INJ IV PRN ×5 (03:30→20:23)
[2019-08-19] MEDS: diphenhydrAMINE 50 MG/ML VIAL IV PRN ×5 (03:30→20:23)
--- NOTE | 2019-08-19 10:29 | XRay Report ---
CHEST 1 VIEW INDICATION / CLINICAL INFORMATION: chest pain. COMPARISON: None available. FINDINGS: SUPPORT DEVICES: None. HEART / MEDIASTINUM: No significant abnormality. LUNGS / PLEURA: No significant pulmonary or pleural abnormality. No pneumothorax. ADDITIONAL FINDINGS: No significant additional findings. IMPRESSION: 1. No acute findings. Signer Name: Bryce Broussard MD Signed: 08/19/2019 10:25 AM Workstation Name: [id number]
[2019-08-19] MEDS: MULTIVITAMINS ,THERAPEUTIC TAB PO SCH (10:33)
[2019-08-19] MEDS: RIVAROXABAN 20 MG TAB PO SCH (10:33)
[2019-08-19] MEDS: FOLIC ACID 1 MG TAB PO SCH (10:33)
--- NOTE | 2019-08-19 17:42 | Discharge Summary ---
Providers - Providers Date of Admission: 08/13/19 09:50 Date of discharge: 08/19/19 Attending physician: KEITH BANDA 08/14/19 10:24 Consult to Physician [CONS] Routine Comment: Consulting Provider: DOROTHEA SLOAN Physician Instructions: Reason For Exam: sickle cell crisis Primary care physician: [facility], Hospitalization Reason for admission: sickle cell pain crisis Condition: Stable Pertinent studies: CT scan of abdomen and pelvis was unremarkable for an acute event CT scan of the head was normal Chest x-ray that was normal EKG that was normal Procedures: none Hospital course: Patient is a 24-year-old female with known history of sickle cell disease and also history of pulmonary embolism on Xarelto presented to the emergency room complaining of headache generalized body aches and pain. She has also complaining of abdominal pain and back pain. She denies any fever no chills no nausea vomiting. She follows up with a manager concrete at [facility]. She has been compliant with her medications and she takes Tylenol with codeine for pain relief. Patient denies any cough, no shortness of breath, no fever or chills. She was admitted for sickle cell vaso-occlusive crisis. On IV fluids and analgesic medication. with narcotics. Added scheduled long acting narcotic - MS Contin but patient says she does not want it, so discontinued. She was seen by Dr. Sloan , CORRESPONDENCE SPECIALIST Dilaudid pump ordered but she declined. Dr. Sloan signed off She has been requesting more Dilaudid, so it was increased to 3mg iv q 3h,08/16. She was on 2mg iv Q 4hr on 08/15 but says pain not controlled. She was requesting 6mg iv Dilaudid , but I told her that dose is too high. Patient complained of chest pain today when she was told that she was going to be discharged today. EKG on chest x-ray with ordered. Both were normal. Patient was given for discharged. However I was informed by the nurse that the patient appealed her discharged. Disposition: TO HOME OR SELFCARE Time spent for discharge: 35 min - Discharge Diagnoses (1) Headache Status: Acute (2) Sickle cell anemia with pain Status: Acute Core Measure Documentation - Palliative Care Palliative Care/ Comfort Measures: Not Applicable - Core Measures Any of the following diagnoses?: none Exam - Physical Exam Narrative exam: Constitutional: Well-nourished well-developed. In no distress Head: Normocephalic atraumatic Eyes: Pupils are equal round and reactive to light Nose: No enlarged turbinates, no septal deviation. Mouth: Moist mucous membranes. Neck: Supple no thyromegaly. No bruit. No JVD Heart: Regular rate and rhythm, S1-S2 normal. No rubs murmurs or gallop Lungs: Clear to auscultation bilaterally. no rales or rhonchi Abdomen: Soft, nontender. Bowel sound are present. Extremities: No edema, no cyanosis, no clubbing. Neuro: Alert oriented Oriented x3. No focal sensory or motor deficit. Skin: No rashes or hyperpigmented spots Musculoskeletal system: No joint pain or swelling Hematological: No petechia or subcutanous hemorrhages. Immunological: No multiple septic spots on the skin Lymphatic: No generalized lymphadenopathy Psychiatry: Euthymic. Calm. - Constitutional Vitals: Temp Pulse Resp BP Pulse Ox 99 F 78 14 111/62 97 08/19/19 12:45 08/19/19 12:45 08/19/19 12:45 08/19/19 12:45 08/19/19 12:45 Plan Activity: no restrictions Weight Bearing Status: Weight Bear as Tolerated Diet: regular [facility] [Primary Care Provider] - 7 Days Prescriptions: Bisacodyl [Dulcolax suppos] 10 mg ID QDAY PRN #30 supp.rect PRN Reason: Constipation unrelieved by MOM Butalb/Acetamin/Caff 50-325-40 [Fioricet 50-325-40] 1 tab PO Q4H PRN #30 tablet PRN Reason: Headache Folic Acid [Folvite] 1 mg PO QDAY #30 tablet Folic Acid [Folvite] 1 mg PO QDAY #30 Multivitamin Tab [Multiple Vitamin TAB (Theragran)] 1 each PO QDAY #30 tablet Rivaroxaban [Xarelto] 20 mg PO QDAY #30 tablet Ondansetron [Zofran ODT TAB] 1 tab PO TID PRN #30 PRN Reason: Nausea
[2019-08-19] MEDS: SODIUM CHLORIDE 0.9% 1000 ML 1,000 ML IV SCH (19:21)
[2019-08-19] MEDS: SENNOSIDES 8.6 MG TAB PO SCH (21:47)
[2019-08-19 22:07] VITALS: BP 99/53
[2019-08-20] MEDS: HYDROmorphone 2 MG/1 ML INJ IV PRN ×2 (00:39→04:35)
[2019-08-20] MEDS: ONDANSETRON 4 MG/2 ML INJ IV PRN (00:39)
[2019-08-20] MEDS: diphenhydrAMINE 50 MG/ML VIAL IV PRN ×2 (00:40→04:35)
== END 2019-08-20 08:55 | disposition home or self-care (01) | DRG 812 ==
LOC: ED 20:01 → 3A 08-13 00:45 → OBSVTOIN 08-13 09:50
PROVIDERS: ADMIT Internal Medicine Geriatric Medicine; ATTEND Family Medicine
DX: D57.00 Hb-SS disease with crisis, unspecified (principal); Z86.711 Personal history of pulmonary embolism; Z79.01 Long term (current) use of anticoagulants; Z90.49 Acquired absence of other specified parts of digestive tract; Z82.49 Family history of ischemic heart disease and other diseases of the circulatory system; Z88.8 Allergy status to other drugs, medicaments and biological substances; Z88.1 Allergy status to other antibiotic agents; Z91.013 Allergy to seafood
CPT/HCPCS: 36415; 70450; 71045; 74176; 80048; 80076; 81001; 83615; 84702; 85025; 85027; 85045; 87116; 93005; 93010; G0378; J1170; J1200; J1885; J2405; J7030; J7040; J7070; J7131; Q0163